=== PATIENT | female | born 1990 | race Caucasian/White ===

== ENCOUNTER 2020-04-28 19:28 | Emergency (ER) | payer MEDICAID, SELFPAY ==
[2020-04-28 19:35] VITALS: BP 110/72; PULSE 85; RESP 18; TEMP 35.9; O2SAT 100; BMI 21.6
[2020-04-28 20:36] LABS: Glucose Urine UA NEG (NEG); Leukocyte Esterase Urine 1+ (NEG); Nitrite Urine POS (NEG); Specific Gravity - Urine 1.025 (1.005-1.025); Urine Blood 3+ (NEG); Urine Ketones NEG (NEG); Urine Protein 1+ MG/DL (NEG-TRACE)
[2020-04-28 20:44] LABS: Appearance Urine CLOUDY; Color Urine YELLOW
[2020-04-28 20:52] LABS: UPreg QC Valid YES; Urine Pregnancy NEGATIVE (NEGATIVE)
[2020-04-28 21:05] LABS: Bacteria Urine 1+ /LPF; RBC Urine 30-49 /HPF (0); Squamous Epithelial Cell Urine TRACE /LPF
--- NOTE | 2020-04-28 21:09 | ED.FEMALEGU ---
HPI - Female Genitourinary General Chief complaint: Abdominal Pain Stated complaint: painful urination Time Seen by Provider: 04/28/20 21:03 Source: patient Mode of arrival: ambulatory Limitations: no limitations History of Present Illness HPI Narrative: This is a 30-year-old female who presents with 1 day of suprapubic discomfort that she rates as 3/ -10 not associated with any fevers, chills, nausea, vomiting, diarrhea. Patient does that pain gets worse with urination. Related Data Home Medications Medication Instructions Recorded Confirmed No Known Home Meds 04/28/20 04/28/20 Previous Rx's Medication Instructions Recorded ciprofloxacin HCl 500 mg PO Q12H 3 Days #6 tab 04/28/20 phenazopyridine [Pyridium] 100 mg PO TID #6 tab 04/28/20 Allergies Allergy/AdvReac Type Severity Reaction Status Date / Time No Known Allergies Allergy Verified 04/28/20 19:41 Review of Systems Review of Systems: Pertinent positives and negatives as stated in HPI 10 point review of systems is otherwise negative. [facility] Past Medical History Source: nursing notes reviewed Medical History No known health problems Social History Social History Advance Directives: No Advance Directives Information Provided: No Physical Exam Vital Signs: Vital Signs: Vital Signs Temp Pulse Resp BP Pulse Ox 04/28/20 19:35 96.7 F L 85 18 110/72 100 Body Mass Index 21.6 VITAL SIGNS: Reviewed. GENERAL: Well developed, well nourished, in no acute distress. HEAD: Normocephalic/atraumatic, EYES: PERRLA, EOMI intact without pain, no nystagmus/pallor/icterus noted EARS: Ext canals without abnormality, TMs non-bulging and non-erythematous NOSE: Nares patent bilateral OROPHARYNX: no oral lesions noted, posterior pharynx clear and non-erythematous without noted tonsillar enlargement/erythema/exudates NECK: Supple, no adenopathy LUNGS: Normal breath sounds. No adventitious sounds or accessory muscle use. SpO2<100> CARDIOVASCULAR: Regular rate and rhythm without noted murmurs, no JVD or lower extremity edema. ABDOMEN: Soft, non-tender, non-distended with bowel sounds. No rigidity. No guarding. No palpable masses or hernias noted MUSCULOSKELETAL: No tenderness, deformities, or effusions noted on gross inspection. EXTREMITIES: No cyanosis, clubbing or edema. SKIN: Inspection of the skin reveals no rashes, ulcerations, jaundice, pallor, or petechiae. NEUROLOGIC: Alert and oriented x 4. Strength and sensation to light touch were grossly intact x 4. Course Course Course Narrative: This is a 30-year-old female with history and clinical presentation most consistent with likely UTI, cystitis and doubt ovarian torsion, appendicitis. On review of all lab work there is a negative urine ruling out ectopic and evidence on urinalysis consistent with UTI/cystitis. Patient was informed of all results and will be discharged with antibiotics. [facility] - Female Genitourinary Lab Data Labs: Lab Results 04/28/20 04/28/20 Range/Units 20:30 20:30 Urine Color YELLOW Urine Appearance CLOUDY Urine pH 6.0 (5.0-8.0) Ur Specific [place] 1.025 (1.005-1.025) Urine Protein 1+ H (NEG-TRACE) MG/DL Urine Glucose (UA) NEG (NEG) MG/DL Urine Ketones NEG (NEG) MG/DL Urine Blood 3+ H (NEG) Urine Nitrite POS H (NEG) Ur Leukocyte Esterase 1+ H (NEG) Urine RBC 30-49 H (0) /HPF Urine WBC 15-29 H (0-4) /HPF Ur Squamous Epith Cells TRACE /LPF Urine Bacteria 1+ /LPF Urine Test NEGATIVE (NEGATIVE) Discharge Plan Discharge Clinical Impression: UTI (urinary tract infection) Qualifiers: Urinary tract infection type: acute cystitis Hematuria presence: with hematuria Qualified Code(s): N30.01 - Acute cystitis with hematuria Patient Disposition: Home, Self-Care Instructions: Urinary Tract Infection in Women (ED) Additional Instructions: 1. aumentar la hidrataci?n, especialmente el agua. El paciente y / o la leoncio reconocen que comprenden los resultados (seg?n corresponda), el diagn?stico, el plan de tratamiento, la necesidad de seguimiento y los s?ntomas que deber?an impulsar el regreso a la monica de emergencias. Prescriptions: New ciprofloxacin HCl 500 mg tablet 500 mg PO Q12H 3 Days Qty: 6 RF: 0 phenazopyridine [Pyridium] 100 mg tablet 100 mg PO TID Qty: 6 RF: 0 No Action No Known Home Meds RF: 0 Referrals: Physician,Unknown [Primary Care Provider] - 2 days Print Language: Vietnamese
== END 2020-04-28 22:10 | disposition home or self-care (01) ==
PROVIDERS: Emergency Provider Student in an Organized Health Care Education/Training Program
DX: N30.01 Acute cystitis with hematuria (principal)
CPT/HCPCS: 81001; 81025; 87086; 87088; 87186; 99283

== ENCOUNTER 2020-07-08 17:32 | Outpatient (REF) | payer MEDICAID, SELFPAY | END 2020-07-08 17:33 | disposition home or self-care (01) | LOC: HO.LAB 17:32 | PROVIDERS: Visit Provider Internal Medicine | DX: Z20.828 Contact with and (suspected) exposure to other viral communicable diseases (principal) | CPT/HCPCS: C9803; U0003 ==

== ENCOUNTER 2020-08-25 03:39 | Emergency (ER) | payer MEDICAID, SELFPAY ==
[2020-08-25 03:41] VITALS: BP 104/67; PULSE 87; RESP 18; TEMP 36.9; O2SAT 99; BMI 23.9
--- NOTE | 2020-08-25 04:27 | ED.NAVMDI ---
HPI - Nausea/Vomiting/Diarrhea General Chief complaint: Nausea/Vomiting/Diarrhea Stated complaint: Diarrhea Time Seen by Provider: 08/25/20 03:57 Source: patient Mode of arrival: ambulatory History of Present Illness HPI Narrative: This is a 30-year-old female without significant past medical history who presents with onset of nonbloody diarrhea at approximately 1:30 a.m. this morning, patient states she has had 3 episodes thus far and has not had any associated fevers, chills, nausea, vomiting, urinary pain/burning/frequency. Patient sources that she ate earlier at [facility] and then developed diarrhea without abdominal discomfort. Related Data Home Medications Medication Instructions Recorded Confirmed No Known Home Meds 04/28/20 04/28/20 Previous Rx's Medication Instructions Recorded ciprofloxacin HCl 500 mg PO Q12H 3 Days #6 tab 04/28/20 phenazopyridine [Pyridium] 100 mg PO TID #6 tab 04/28/20 Allergies Allergy/AdvReac Type Severity Reaction Status Date / Time No Known Allergies Allergy Verified 08/25/20 03:41 Review of Systems Review of Systems: Pertinent positives and negatives as stated in HPI 10 point review of systems otherwise negative. [facility] Past Medical History Source: nursing notes reviewed Medical History No known health problems Social History Social History Advance Directives: No Advance Directives Information Provided: No Physical Exam Vital Signs: Vital Signs: Last Vital Signs Temp 98.5 F 08/25/20 03:41 Pulse 87 08/25/20 03:41 Resp 18 08/25/20 03:41 BP 104/67 08/25/20 03:41 Pulse Ox 99 08/25/20 03:41 Body Mass Index 23.9 VITAL SIGNS: Reviewed. GENERAL: Well developed, well nourished, in no acute distress. NOSE: Nares patent bilateral OROPHARYNX: no oral lesions noted, posterior pharynx clear NECK: Supple, no adenopathy LUNGS: Normal breath sounds. SpO2<99> CARDIOVASCULAR: Regular rate and rhythm without noted murmurs ABDOMEN: Soft, non-tender, non-distended with bowel sounds. NEUROLOGIC: Alert and oriented x 4. Course Course Course Narrative: This is a 30-year-old female with history clinical presentation most consistent with food related diarrhea and no evidence of p.o. intolerance. Discussed with patient the option of providing some fluid replacement and will be provided with a p.o. challenge. On re-evaluation patient is feeling much better and tolerating oral intake. She was discharged in stable condition. Discharge Plan Discharge Clinical Impression: Diarrhea Qualifiers: Diarrhea type: unspecified type Qualified Code(s): R19.7 - Diarrhea, unspecified Patient Disposition: Home, Self-Care Instructions: Acute Diarrhea (ED), Nutrition Tips for Relief of Diarrhea (ED) Additional Instructions: Please do not hesitate to return to the emergency department if you experience any worsening of your symptoms. Prescriptions: No Action No Known Home Meds RF: 0 ciprofloxacin HCl 500 mg tablet 500 mg PO Q12H 3 Days Qty: 6 RF: 0 phenazopyridine [Pyridium] 100 mg tablet 100 mg PO TID Qty: 6 RF: 0 Referrals: [facility] [Primary Care Provider] - 2 days (Re-evaluation of her seen in the emergency department for suspected food related diarrhea.) Stand Alone Forms: Work/School Release
[2020-08-25] MEDS: 0.9 % Sodium Chloride 1,000 ML 999 ML IV (04:31)
== END 2020-08-25 06:22 | disposition home or self-care (01) ==
PROVIDERS: Emergency Provider Student in an Organized Health Care Education/Training Program
DX: R19.7 Diarrhea, unspecified (principal)
CPT/HCPCS: 96360; 99283; 99284

== ENCOUNTER 2022-06-12 20:52 | Emergency (ER) | payer MEDICAID, SELFPAY ==
[2022-06-12 21:12] VITALS: BP 119/76; PULSE 119; RESP 16; TEMP 37.9; O2SAT 98; BMI 22.1
[2022-06-12] MEDS: Acetaminophen 325 MG TABLET 975 MG PO (21:18)
--- NOTE | 2022-06-12 21:31 | ED_ITS ---
HPI - General Adult General Chief complaint: General Medical Stated complaint: Fever, throat pain Time Seen by Provider: 06/12/22 21:31 Source: patient Mode of arrival: ambulatory Limitations: no limitations History of Present Illness HPI narrative: 32-year-old female presents with fatigue, fevers and sore throat that started this morning. States is difficult to swallow but she is able to manage secretions. She did take Motrin with moderate effect. Onset (ago): day(s) (1) Location: mouth Radiation: non-radiation Severity: moderate Severity scale (1-10): 7 Quality: aching Pain Consistency: constant Relieving factors: none Exacerbating factors: eating Associated symptoms: denies other symptoms Treatments prior to arrival: NSAID Related Data Previous Rx's Medication Instructions Recorded ciprofloxacin HCl 500 mg tablet 500 mg PO Q12H 3 days #6 tabs 04/28/20 phenazopyridine 100 mg tablet 100 mg PO TID 6 doses #6 tabs 04/28/20 (Pyridium) amoxicillin 875 mg-potassium 1 tab PO Q12H 10 days #20 tabs 06/12/22 clavulanate 125 mg tablet Allergies Allergy/AdvReac Type Severity Reaction Status Date / Time No Known Allergies Allergy Verified 06/12/22 21:22 Review of Systems Review of Systems: Constitutional: positive Fever, positive Chills, positive fatigue, positive Malaise ENT/Mouth: positive sore throat, positive runny nose Eyes: No Discharge Cardiovascular: No Chest Pain, No SOB Respiratory: No Cough, No Sputum, No Wheezing, No Smoke Exposure, No Dyspnea Gastrointestinal: No Nausea, No Vomiting, No Diarrhea Genitourinary: no irregular bleeding, No Dysuria, No Urinary Frequency, No Hematuria, No Urinary Incontinence, No Urgency, No Flank Pain, Musculoskeletal: positive Myalgia Skin: No rash Neuro: No Headache Yes all other systems are reviewed and are negative [facility] Past Medical History Attestation statement: The following information was validated with the patient. Source: old records reviewed Medical History No known health problems Social History Social History Advance Directives: No Advance Directives Information Provided: No Physical Exam ED Vital Signs: Vital Signs - 24 hr 06/12/22 21:12 06/12/22 22:12 Temperature 100.3 F 100.6 F H Pulse Rate 119 H 98 Respiratory Rate 16 18 Blood Pressure 119/76 114/64 Pulse Oximetry 98 100 Oxygen Delivery Method Room Air Room Air BMI result Body Mass Index 22.1 Appearance: Alert. Oriented X3. Moderate distress. Eyes: Pupils equal, round and reactive to light. Sclera nonicteric ENT: Pharynx erythematous, with bilateral tonsillar exudate. Neck: Normal inspection. Neck supple. No tracheal stridor. Anterior posterior cervical lymphadenopathy. No mastoid tenderness noted. Tympanic membranes intact. CVS: Normal heart rate and rhythm. Pulses normal. Respiratory: No respiratory distress. Breath sounds normal. Abdomen: Soft and nontender. Skin: Skin warm and dry. Normal skin color. Normal skin turgor. Extremities: Gait well-balanced well coordinated Neuro: No motor deficit. No sensory deficit. Cranial nerves 2-12 intact. Course Course Course Narrative: 32-year-old female presents with 1 day of sore throat, myalgia, fevers. COVID influenza RSV are pending, strep A positive while in the emergency department waiting room. Physical exam is indicative of pharyngitis. Will treat with Augmentin. Supportive measures discussed for pain management. No indication of peritonsillar abscess, no epiglottitis noted. Patient verbalized understanding of and agrees to plan of care discharge home. Verbalized understanding sinus symptoms indicating need for emergent intervention. Medications Administered Discontinued Medications Generic Name Dose Route Start Last Admin Trade Name Freq PRN Reason Stop Dose Admin Acetaminophen 975 mg 06/12/22 21:16 06/12/22 21:18 Acetaminophen 325 Mg Tablet PO 06/12/22 21:17 975 mg ONCE ONE Administration Amoxicillin/Clavulanate Potassium 875 mg 06/12/22 22:05 06/12/22 22:10 Amoxicillin/Potassium Clav 875 Mg Tablet PO 06/12/22 22:06 875 mg ONCE ONE Administration Medical Decision Making Differential Diagnosis Differential Diagnosis: COVID, influenza, RSV, pharyngitis, strep, epiglottitis, peritonsillar absc Medical Records Medical records reviewed: Yes I reviewed the patient's medical records. Lab Data Lab results reviewed: Yes I reviewed the patient's lab results. Labs: Lab Results 06/12/22 06/12/22 Range/Units 21:20 21:20 Influenza Type A (PCR) NEGATIVE (Negative) Influenza Type B (PCR) NEGATIVE (Negative) RSV RNA Qual (PCR) NEGATIVE (Negative) SARS-CoV-2 RNA (RT-PCR) NEGATIVE (Negative) S. pyogenes GrpA YURI Positive A (Negative) Discharge Plan Discharge Clinical Impression: Acute streptococcal pharyngitis Patient Disposition: Home, Self-Care Instructions: Strep Throat (ED) Additional Instructions: You were evaluated for upper respiratory symptoms. You tested positive for strep pharyngitis. Please take Augmentin 875 mg every 12 hours for the next 10 days. Alternate Tylenol 650 mg every 6 hours as needed and Motrin 600 mg every 6 hours as needed for pain management. Her last dose of Tylenol was given at 21:00. Your next dose is due at 03:00. Consider taking Motrin 600 mg at midnight so you can have pain and fever management every 3 hours. Write down what time you take these medications to prevent accidental overdose. Your COVID influenza RSV tests are pending. We will call you with your results. If you have difficulty swallowing, cannot manage your saliva, or feel that her airway is closing please return to the emergency department immediately. This is an indication of worsening symptoms. Thank you for choosing this emergency department for evaluation. Please follow-up with primary care physician as needed. Return to the emergency department for any new, concerning, or worsening symptoms. Prescriptions: New amoxicillin-pot clavulanate 875-125 mg tablet 1 tab PO Q12H 10 Days Qty: 20 0RF No Action ciprofloxacin HCl 500 mg tablet 500 mg PO Q12H 3 Days Qty: 6 0RF phenazopyridine [Pyridium] 100 mg tablet 100 mg PO TID Qty: 6 0RF Stand Alone Forms: Work/School Release Interventions: ED Discharge Assessment Last Done: 06/12/22 22:23 Discharge Date/Time: 06/12/22 22:24
[2022-06-12 21:36] LABS: Strep A Nucleic Acid Positive (Negative)
[2022-06-12] MEDS: Amoxicillin/Potassium Clav 875 MG TABLET PO (22:10)
[2022-06-12 22:11] LABS: Influenza A PCR NEGATIVE (Negative); Influenza B PCR NEGATIVE (Negative); Resp Syncy Virus RNA Qual PCR NEGATIVE (Negative); SARS COV2 PCR INHOUSE NEGATIVE (Negative)
[2022-06-12 22:12] VITALS: BP 114/64; PULSE 98; RESP 18; TEMP 38.1; O2SAT 100
== END 2022-06-12 22:24 | disposition home or self-care (01) ==
PROVIDERS: Emergency Provider Emergency Medicine Emergency Medical Services
DX: J02.0 Streptococcal pharyngitis (principal); R50.9 Fever, unspecified; Z20.822 Contact with and (suspected) exposure to COVID-19
CPT/HCPCS: 0241U; 36415; 87651; 99283

== ENCOUNTER 2022-07-25 10:15 | Emergency (ER) | payer MEDICAID, SELFPAY ==
--- NOTE | ~2022-07-25 | CT_ITS ---
EXAMINATION: CT ABDOMEN AND PELVIS WITHOUT CONTRAST CLINICAL INFORMATION: Abdominal pain, hematuria COMPARISON: None TECHNIQUE: Multidetector volumetric imaging was performed from the superior aspect of the liver through the pubic symphysis. Sagittal and coronal reformatted images were obtained on the technologist's workstation. This CT examination was performed using dose optimization techniques as appropriate, variously including the following: *Automated exposure control *Adjustment of mA and/or kV according to patient size (this includes techniques or standardized protocols for targeted exams where dose is matched to indication/reason for exam; i.e. extremities or head) *Use of iterative reconstruction technique DLP: 522 mGy-cm FINDINGS: LUNG BASES: The visualized lung bases are unremarkable. LIVER, GALLBLADDER, AND BILIARY TREE: The liver is normal in size, shape, and attenuation. No focal hepatic lesion or biliary ductal dilatation is present. The gallbladder is unremarkable with no evidence of radiopaque gallstones, gallbladder wall thickening, or obvious pericholecystic inflammatory changes. PANCREAS: Unremarkable. SPLEEN: Unremarkable. ADRENAL GLANDS: Unremarkable. KIDNEYS AND URETERS: The kidneys are normal in size, shape, and attenuation. No hydronephrosis, hydroureter, or calculi seen. No perinephric stranding. BLADDER: Minimally distended. No obvious wall thickening or radiodense calculi within the bladder. GASTROINTESTINAL TRACT: Prominent stool in the rectum and distal sigmoid colon. Few diverticula in the sigmoid colon. No findings to suggest diverticulitis. Nonobstructive bowel gas pattern. No dilated small bowel loops. Normal appendix. No ascites. No free air.s ABDOMINAL WALL: No significant hernia is appreciated. LYMPH NODES: No adenopathy seen. VASCULAR: Normal caliber aorta. PELVIC VISCERA: Within normal limits. OSSEOUS STRUCTURES: Unremarkable. CT/CT abdomen pelvis wo IV con IMPRESSION: 1. No evidence of radiopaque renal or ureteral calculi. No hydronephrosis. No perinephric stranding. No suspicious lesions seen. 2. Prominent stool in the rectum and distal sigmoid colon. No acute colonic inflammatory changes. Fleischner guidelines were followed.
[2022-07-25 10:21] VITALS: BP 132/72; PULSE 88; RESP 18; TEMP 36.8; O2SAT 98; BMI 21.2
[2022-07-25 10:37] VITALS: BP 121/75; PULSE 87; RESP 15; TEMP 36.9; O2SAT 100
--- NOTE | 2022-07-25 10:59 | PC.NURSE ---
Pt reports urinary frequency since this AM, with scant vaginal bleeding. low back pain and low abd cramping however denies pain at this time, urine sent
[2022-07-25 11:00] LABS: Appearance Urine Clear; Color Urine Yellow; Glucose Urine UA Negative (Negative); Leukocyte Esterase Urine Negative (Negative); Nitrite Urine Negative (Negative); PH 5.5 (5.0-9.0); Specific Gravity - Urine 1.015 (1.005-1.025); UMIC TRIGGER UACC YES; Urine Blood Moderate (2+) (Negative); Urine Ketones Negative (Negative); Urine Protein Negative (Neg-Trace)
[2022-07-25 11:02] LABS: UPreg QC Valid YES; Urine Pregnancy NEGATIVE (NEGATIVE)
[2022-07-25 11:03] LABS: Bacteria Urine None Seen (None Seen); Hyaline Casts Urine 0-2 /LPF (0-2); RBC Urine >20 /HPF (0-2); Squamous Epithelial Cell Urine 0-2 /HPF (0-2); WBC Urine 0-5 /HPF (0-5)
--- NOTE | 2022-07-25 11:26 | ED_ITS ---
HPI - Female Genitourinary General Chief complaint: Urogenital-Female Stated complaint: abd pain Time Seen by Provider: 07/25/22 10:31 Source: patient and foreign language interpreter Mode of arrival: ambulatory Limitations: language barrier History of Present Illness HPI Narrative: This is a 32-year-old female who has previously healthy who presents with urinary frequency, urgency, suprapubic pressure and cramping as well as low back pain which began today. She denies any fevers, chills, diarrhea, vomiting, high back pain. Patient reports she is sexually active with 1 male partner who she has been sexually active with for 4 years. She is not concern for STD exposure. She does not want testing. Last menstrual period was the last week of June Related Data Previous Rx's Medication Instructions Recorded ciprofloxacin HCl 500 mg tablet 500 mg PO Q12H 3 days #6 tabs 04/28/20 phenazopyridine 100 mg tablet 100 mg PO TID 6 doses #6 tabs 04/28/20 (Pyridium) amoxicillin 875 mg-potassium 1 tab PO Q12H 10 days #20 tabs 06/12/22 clavulanate 125 mg tablet ferrous sulfate 325 mg (65 mg 325 mg PO DAILY #30 tabs 07/25/22 iron) tablet Allergies Allergy/AdvReac Type Severity Reaction Status Date / Time No Known Allergies Allergy Verified 07/25/22 10:20 Review of Systems Review of Systems: Yes all other systems are reviewed and are negative Constitutional: Constitutional: Reports no additional constitutional complaints, Denies body ache(s), Denies chills, Denies fever(s), Denies headache(s) and Denies weakness Eyes: Eyes: Reports no additional eye complaints and Denies change in vision ENT: Reports system reviewed and no additional complaints, except as documented, Denies dizziness, Denies headache(s), Denies nasal congestion, Denies nasal discharge and Denies neck pain Cardiovascular: Cardiovascular: Reports no additional cardiovascular complaints, Denies chest pain, Denies leg edema and Denies dyspnea Respiratory: Respiratory: Reports no additional respiratory complaints, Denies cough and Denies dyspnea Gastrointestinal: Gastrointestinal: Reports no additional gastrointestinal complaints, Denies abdominal pain, Denies diarrhea, Denies nausea and Denies vomiting Genitourinary: Genitourinary: Reports no additional female genitourinary complaints, Reports hematuria, Denies dysuria, Reports pelvic pain, Denies urinary incontinence, Denies urinary hesitancy, Reports urinary urgency, Denies vaginal discharge, Denies vaginal dryness, Denies vaginal odor and Denies vaginal pruritus Musculoskeletal: Musculoskeletal: Reports no additional musculoskeletal complaints, Reports back pain, Denies arthralgias, Denies joint swelling, Denies neck pain, Denies numbness and Denies tingling Integumentary/Breasts: Skin/Breast: Reports system reviewed and no additional complaints, except as docu and Denies rash Neurologic: Reports system reviewed and no additional complaints, except as documented, Denies Abnormal speech present, Denies dizziness, Denies headache(s), Denies numbness, Denies tingling and Denies weakness PMFSH Past Medical History Attestation statement: The following information was validated with the patient. Source: old records reviewed and nursing notes reviewed Medical History No known health problems Social History Social History Smoked in Last 30 Days: No Use of substances other than those prescribed or required for medical reasons: No Advance Directives: No Advance Directives Information Provided: Yes Patient : No Physical Exam Vital Signs: Vital Signs: Last Vital Signs Temp 98.4 F 07/25/22 10:37 Pulse 91 07/25/22 13:24 Resp 16 07/25/22 13:24 BP 124/79 07/25/22 13:24 Pulse Ox 96 07/25/22 13:24 O2 Del Method 07/25/22 13:24 BMI result Body Mass Index 21.2 Const: General: cooperative, healthy appearing, comfortable and no acute distress Orientation/consciousness: patient oriented x3 Limitations: no limitations HEENT: Head: Yes normal to inspection Ears: hearing grossly normal bilaterally General nose exam: Normal external nose present Face and sinus: Yes normal facial exam Mouth: Normal oral and palatal mucosa present Throat: Yes posterior oropharynx normal Eyes: General: appearance normal, both eyes and all related structures Pupils: Equal, round and reactive pupils present Neck: Neck: Yes normal visual inspection Chest: Chest palpation & inspection: normal inspection of the chest Resp: Effort & Inspection: normal respiratory effort Auscultation: clear to auscultation bilaterally Cardio: Rate: regular rate Rhythm: regular rhythm Peripheral pulses: Peripheral pulses 2+ throughout GI: Inspection: Yes normal to inspection Palpation (GI): Soft to palpation and Tenderness to palpation present (GI) (Mild suprapubic tenderness) Auscultation: normal bowel sounds : General: Yes no CVA tenderness External Female Exam: normal external appearance Speculum Exam - Vagina: normal appearance of the vagina and vaginal bleeding (Scant vaginal bleeding-mucousy) Speculum Exam - Cervix: normal appearance of the cervix and nontender Bimanual exam- vagina & uterus: normal bimanual exam and No Cervical tenderness present Bimanual Exam- Adnexa, other: normal adnexae and no tenderness OB/external & speculum: vaginal bleeding (Scant vaginal bleeding-mucousy) Back/Spine/Pelvis: Back: no CVA tenderness Thoracic/Lumbar Spine: thoracic and lumbar spine normal to inspection Skin: General skin exam: no rashes or lesions noted Neuro: General: patient oriented x3, no focal motor deficits and normal sensation to monofilament Cranial nerves: Yes Equal, round and reactive pupils present Cognition (Neuro): normal cognition Speech: No Abnormal speech present Gait exam (Neuro): Normal gait present Motor exam (neuro): 5/5 motor strength present throughout Extrem: General: Yes normal to inspection Course Course Course Narrative: UA shows moderate RBC. No signs of leuks or nitrates. Will obtain labs, CT to rule out colic Reevaluation(s) Reevaluation #1: 1400-CT shows no acute finding. The patient consented to a pelvic exam. See physical exam. There was some mucusy/bloody vaginal discharge with no cervical motion tenderness or adnexal tenderness. Patient tells me that she is due for her menses in 2 weeks. ? Irregular. Does report multiple stressors anxiety at home and tells me when this happens her periods are usually irregular. Patient's pain is resolved during her ER stay day. She did consent to testing for vaginal infections and STIs. Patient is not concern for STDs and would like to wait for the results to come back before she is treated. Labs show microcytic anemia. Likely chronic. Patient will be started on iron supplement. Recommend follow-up with primary care. Reviewed worrisome signs and symptoms of when to return to the emergency room. Comfortable discharge home. Medical Decision Making Medical Decision Making MDM Narrative: 32-year-old female here with urinary urgency, frequency, suprapubic pressure and low back pain starting today. No CVA tenderness on exam. Lungs are clear. Mild tenderness to the suprapubic area. Will send UA, urine preg. Offered STI testing the patient declined. Differential Diagnosis Differential Diagnoses: The differential diagnosis associated with the presentation includes UTI, renal colic, pyelonephritis Lab Data MDM Lab Attestation statement: I reviewed the patient's lab results. 07/25/22 11:36 07/25/22 11:36 Labs: Lab Results 07/25/22 07/25/22 07/25/22 Range/Units 10:54 10:54 11:36 WBC 6.1 (4.8-10.8) X10*3/uL RBC 4.67 (4.20-5.50) X10*6/uL Hgb 8.4 L (12.0-16.0) g/dl Hct 29.3 L (37.0-47.0) % MCV 62.7 L (80.0-98.0) fL MCH 18.0 L (27.0-33.0) pg MCHC 28.7 L (31.0-35.0) g/dl RDW 16.6 H (11.0-16.0) % Plt Count 344 (160-400) X10*3/uL MPV 9.5 (9.4-12.3) fL Immature Gran % (Auto) 0.2 (0.0-0.4) % Neut % (Auto) 62.4 (45-73) % Lymph % (Auto) 29.1 (20-40) % Nicholas % (Auto) 5.8 (2-11) % Eos % (Auto) 2.0 (0-4) % Baso % (Auto) 0.5 (0-2) % Lymph # (Auto) 1.8 (1.2-4.9) X10*3/uL Nicholas # (Auto) 0.4 (0.1-1.2) X10*3/uL Eos # (Auto) 0.1 (0.0-0.4) X10*3/uL Baso # (Auto) 0.0 (0.0-0.2) X10*3/uL Abs Immat Gran (auto) 0.01 (0.00-0.03) X10*3/uL Absolute Neuts (auto) 3.8 (2.0-8.3) x10*3/uL Absolute Nucleated RBC 0.000 (0.0-0.012) X10*3/uL Nucleated RBC % (auto) 0.0 (0.0-0.2) /100WBC Sodium (135-145) mmol/L Potassium (3.3-5.1) mmol/L Chloride (96-108) mmol/L Carbon Dioxide (22-29) mmol/L Anion Gap (12-20) BUN (9-16) mg/dL Creatinine (0.5-1.4) mg/dL Estim Creat Clear Calc Estimated GFR Random Glucose (60-115) mg/dL Calcium (8.4-10.2) mg/dL Total Bilirubin (0.0-1.0) mg/dL Direct Bilirubin (0.0-0.5) mg/dL AST (5-31) U/L ALT (0-31) U/L Alkaline Phosphatase (39-117) U/L Total Protein (6.5-8.0) g/dL Albumin (3.5-5.0) g/dL Urine Color Yellow Urine Appearance Clear Urine pH 5.5 (5.0-9.0) Ur Specific [place] 1.015 (1.005-1.025) Urine Protein Negative (Neg-Trace) mg/dL Urine Glucose (UA) Negative (Negative) mg/dL Urine Ketones Negative (Negative) mg/dL Urine Blood Moderate (2+) H (Negative) Urine Nitrite Negative (Negative) Ur Leukocyte Esterase Negative (Negative) Urine RBC >20 H (0-2) /HPF Urine WBC 0-5 (0-5) /HPF Ur Squamous Epith Cells 0-2 (0-2) /HPF Urine Bacteria None Seen (None Seen) Hyaline Casts 0-2 (0-2) /LPF Urine Test NEGATIVE (NEGATIVE) 07/25/22 Range/Units 11:36 WBC (4.8-10.8) X10*3/uL RBC (4.20-5.50) X10*6/uL Hgb (12.0-16.0) g/dl Hct (37.0-47.0) % MCV (80.0-98.0) fL MCH (27.0-33.0) pg MCHC (31.0-35.0) g/dl RDW (11.0-16.0) % Plt Count (160-400) X10*3/uL MPV (9.4-12.3) fL Immature Gran % (Auto) (0.0-0.4) % Neut % (Auto) (45-73) % Lymph % (Auto) (20-40) % Nicholas % (Auto) (2-11) % Eos % (Auto) (0-4) % Baso % (Auto) (0-2) % Lymph # (Auto) (1.2-4.9) X10*3/uL Nicholas # (Auto) (0.1-1.2) X10*3/uL Eos # (Auto) (0.0-0.4) X10*3/uL Baso # (Auto) (0.0-0.2) X10*3/uL Abs Immat Gran (auto) (0.00-0.03) X10*3/uL Absolute Neuts (auto) (2.0-8.3) x10*3/uL Absolute Nucleated RBC (0.0-0.012) X10*3/uL Nucleated RBC % (auto) (0.0-0.2) /100WBC Sodium 140 (135-145) mmol/L Potassium 4.0 (3.3-5.1) mmol/L Chloride 107 (96-108) mmol/L Carbon Dioxide 23 (22-29) mmol/L Anion Gap 14 (12-20) BUN 11 (9-16) mg/dL Creatinine 0.72 (0.5-1.4) mg/dL Estim Creat Clear Calc 110.3 Estimated GFR > 60 Random Glucose 100 (60-115) mg/dL Calcium 9.5 (8.4-10.2) mg/dL Total Bilirubin 0.4 (0.0-1.0) mg/dL Direct Bilirubin < 0.2 (0.0-0.5) mg/dL AST 17 (5-31) U/L ALT 12 (0-31) U/L Alkaline Phosphatase 62 (39-117) U/L Total Protein 7.9 (6.5-8.0) g/dL Albumin 4.2 (3.5-5.0) g/dL Urine Color Urine Appearance Urine pH (5.0-9.0) Ur Specific [place] (1.005-1.025) Urine Protein (Neg-Trace) mg/dL Urine Glucose (UA) (Negative) mg/dL Urine Ketones (Negative) mg/dL Urine Blood (Negative) Urine Nitrite (Negative) Ur Leukocyte Esterase (Negative) Urine RBC (0-2) /HPF Urine WBC (0-5) /HPF Ur Squamous Epith Cells (0-2) /HPF Urine Bacteria (None Seen) Hyaline Casts (0-2) /LPF Urine Test (NEGATIVE) Independent Interpretation I performed an independent interpretation of an: CT Scan (Independently reviewed the CT scan which is no acute finding) Radiology Impression Discussion of test interpretation with radiology: I have reviewed the radiologist's reading. Radiologist Impression: FINDINGS: LUNG BASES: The visualized lung bases are unremarkable.? LIVER, GALLBLADDER, AND BILIARY TREE: The liver is normal in size, shape, and attenuation. No focal hepatic lesion or biliary ductal dilatation is present. The gallbladder is unremarkable with no evidence of radiopaque gallstones, gallbladder wall thickening, or obvious pericholecystic inflammatory changes.? PANCREAS: Unremarkable.? SPLEEN: Unremarkable.? ADRENAL GLANDS: Unremarkable.? KIDNEYS AND URETERS: The kidneys are normal in size, shape, and attenuation. No hydronephrosis, hydroureter, or calculi seen. No perinephric stranding. ? BLADDER: Minimally distended. No obvious wall thickening or radiodense calculi within the bladder.? GASTROINTESTINAL TRACT: Prominent stool in the rectum and distal sigmoid colon. Few diverticula in the sigmoid colon. No findings to suggest diverticulitis. Nonobstructive bowel gas pattern. No dilated small bowel loops. Normal appendix. No ascites. No free air.s? ABDOMINAL WALL: No significant hernia is appreciated.? LYMPH NODES: No adenopathy seen. VASCULAR: Normal caliber aorta. PELVIC VISCERA: Within normal limits.? OSSEOUS STRUCTURES: Unremarkable.? CT/CT abdomen pelvis wo IV con IMPRESSION: 1. No evidence of radiopaque renal or ureteral calculi. No hydronephrosis. No perinephric stranding. No suspicious lesions seen. ? 2. Prominent stool in the rectum and distal sigmoid colon. No acute colonic inflammatory changes. ? Fleischner guidelines were followed. Discharge Plan Discharge Clinical Impression: Anemia, Pelvic pain Patient Disposition: Home, Self-Care Instructions: Anemia (ED), Pelvic Pain (ED) Additional Instructions: Tiene anemia leve. [place] no es raro en las mujeres en edad f?rtil. Es probable que sea por deficiencia de joe. Te estoy comenzando con un suplemento de joe. [place] an?lisis de laboratorio, muestra de orina y tomograf?a computarizada son todos normales. Enviamos algunos hisopos para infecciones vaginales comunes en mujeres. Lo llamaremos si estos son positivos y necesita tratamiento adici onal. Es posible que tenga [place] menstruaci?n antes de lo normal. Aplica calor en tu abdomen. [place] Motrin o Tylenol si puede seg?n sea necesario para el dolor. Prescriptions: New ferrous sulfate 325 mg (65 mg iron) tablet 325 mg PO DAILY Qty: 30 0RF No Action ciprofloxacin HCl 500 mg tablet 500 mg PO Q12H 3 Days Qty: 6 0RF phenazopyridine [Pyridium] 100 mg tablet 100 mg PO TID Qty: 6 0RF amoxicillin-pot clavulanate 875-125 mg tablet 1 tab PO Q12H 10 Days Qty: 20 0RF Referrals: [facility] [Primary Care Provider] - Interventions: ED Discharge Assessment Last Done: 07/25/22 14:15 Discharge Date/Time: 07/25/22 14:16 Print Language: Kazakh
[2022-07-25 11:39] LABS: MANUAL DIFF FLAG NO
[2022-07-25 11:40] LABS: Basophils Percent Auto 0.5 % (0-2); Eosinophils Absolute Auto 0.1 X10*3/uL (0.0-0.4); Hematocrit 29.3 % (37.0-47.0); Hemoglobin 8.4 g/dl (12.0-16.0); Imm Gran Abs Auto 0.01 X10*3/uL (0.00-0.03); Imm Gran Pct Auto 0.2 % (0.0-0.4); Lymphocytes Absolute Auto 1.8 X10*3/uL (1.2-4.9); Lymphocytes Percent Auto 29.1 % (20-40); Mean Corpuscular HGB Conc 28.7 g/dl (31.0-35.0); Mean Platelet Volume 9.5 fL (9.4-12.3); Monocytes Absolute Auto 0.4 X10*3/uL (0.1-1.2); Monocytes Percent Auto 5.8 % (2-11); Neutrophils Absolute Auto 3.8 x10*3/uL (2.0-8.3); Neutrophils Percent Auto 62.4 % (45-73); Platelet Count 344 X10*3/uL (160-400); Red Blood Count 4.67 X10*6/uL (4.20-5.50); Red Cell Distribution Width 16.6 % (11.0-16.0); White Blood Count 6.1 X10*3/uL (4.8-10.8)
[2022-07-25 11:43] LABS: Mean Corpuscular Volume 62.7 fL (80.0-98.0)
--- NOTE | 2022-07-25 11:48 | PC.NURSE ---
Off unit to CT scan
[2022-07-25 11:54] LABS: Alanine Aminotransferase 12 U/L (0-31); Albumin Level 4.2 g/dL (3.5-5.0); Alkaline Phosphatase 62 U/L (39-117); Anion Gap 14 (12-20); Aspartate Amino Transferase 17 U/L (5-31); Bilirubin Direct < 0.2 mg/dL (0.0-0.5); Bilirubin Total 0.4 mg/dL (0.0-1.0); Blood Urea Nitrogen 11 mg/dL (9-16); Calcium 9.5 mg/dL (8.4-10.2); Carbon Dioxide 23 mmol/L (22-29); Chloride 107 mmol/L (96-108); Creatinine Clr Calc Pharmacy 110.3; Estimated Glomerular Filt Rate > 60; Glucose Random 100 mg/dL (60-115); Sodium 140 mmol/L (135-145); Total Protein 7.9 g/dL (6.5-8.0)
[2022-07-25 13:24] VITALS: BP 124/79; PULSE 91; RESP 16; O2SAT 96
[2022-07-25 15:22] LABS: CT PCR NOT DETECTED (Not Detect.); NG PCR NOT DETECTED (Not Detect.)
[2022-07-26 11:17] LABS: BV Int Neg Control Negative (Negative); BV Int Pos Control Positive (Positive)
== END 2022-07-25 14:16 | disposition home or self-care (01) ==
PROVIDERS: Nurse Practitioner Family; Emergency Provider Emergency Medicine
DX: D64.9 Anemia, unspecified (principal); R35.0 Frequency of micturition; R10.2 Pelvic and perineal pain; M54.50 Low back pain, unspecified; Z79.899 Other long term (current) drug therapy
CPT/HCPCS: 0353U; 36415; 74176; 80048; 80076; 81001; 81003; 81025; 85025; 87480; 87510; 87660; 99284

== ENCOUNTER 2023-01-13 05:02 | Emergency (ER) | payer MEDICAID, SELFPAY ==
[2023-01-13 05:07] VITALS: BP 101/67; PULSE 98; RESP 20; TEMP 36.2; O2SAT 97; BMI 21.4
[2023-01-13 05:18] VITALS: BP 104/65; PULSE 94; RESP 17; TEMP 37.1; O2SAT 98
--- NOTE | 2023-01-13 06:33 | ED.GENADULT ---
HPI - General Adult General Chief complaint: Abdominal Pain Stated complaint: diarrhea Time Seen by Provider: 01/13/23 06:32 Source: patient Mode of arrival: ambulatory Limitations: no limitations History of Present Illness HPI narrative: Patient is a 32 year old assigned female at with a history of recent urinary tract infection presenting to the emergency department today with nausea, vomiting, and diarrhea. Patient states that yesterday she saw her PCP and was diagnosed with a UTI and started on Macrobid however, she has not been able to take it due to her vomiting. Patient denies any dizziness, lightheadedness, abdominal pain, fever, chills, blurry vision, double vision, loss of vision, chest pain, difficulty breathing, shortness of breath, back pain, night sweats, pain with urination, increased urinary frequency, increased urinary urgency, blood in her urine or stool, syncope or a near syncopal episode, recent trauma or falls, bowel incontinence, bladder incontinence, bowel retention, bladder retention, or any other complaints at this time. Onset (ago): day(s) (2) Severity: mild Severity scale (1-10): 2 Relieving factors: none Exacerbating factors: none Associated symptoms: nausea/vomiting Treatments prior to arrival: none Related Data Previous Rx's Medication Instructions Recorded ciprofloxacin HCl 500 mg tablet 500 mg PO Q12H 3 days #6 tabs 04/28/20 phenazopyridine 100 mg tablet 100 mg PO TID 6 doses #6 tabs 04/28/20 (Pyridium) amoxicillin 875 mg-potassium 1 tab PO Q12H 10 days #20 tabs 06/12/22 clavulanate 125 mg tablet ferrous sulfate 325 mg (65 mg 325 mg PO DAILY #30 tabs 07/25/22 iron) tablet metronidazole 500 mg tablet 500 mg PO BID 7 days #14 tabs 07/30/22 cefdinir 300 mg capsule 300 mg PO BID 7 days #14 caps 01/13/23 ondansetron 4 mg disintegrating 4 mg PO Q8H 3 days #9 tabs 01/13/23 tablet Allergies Allergy/AdvReac Type Severity Reaction Status Date / Time No Known Allergies Allergy Verified 07/25/22 10:20 Review of Systems Constitutional: Constitutional: Reports no additional constitutional complaints, Denies chills, Denies fever(s) and Denies night sweats Eyes: Eyes: Reports no additional eye complaints, Denies blurry vision, Denies change in vision, Denies diplopia, Denies eye discharge, Denies loss of vision and Denies eye pain ENT: Denies dizziness Cardiovascular: Cardiovascular: Reports no additional cardiovascular complaints, Denies chest pain, Denies lightheadedness, Denies Loss of Consciousness and Denies dyspnea Respiratory: Respiratory: Reports no additional respiratory complaints and Denies dyspnea Gastrointestinal: Gastrointestinal: Reports no additional gastrointestinal complaints, Denies abdominal pain, Denies melena, Denies hematochezia, Denies change in bowel habits, Denies change in stool character, Reports diarrhea, Reports nausea and Reports vomiting Genitourinary: Genitourinary: Denies hematuria, Denies urinary frequency, Denies dysuria, Denies urinary incontinence, Denies urinary hesitancy and Denies urinary urgency Musculoskeletal: Musculoskeletal: Reports no additional musculoskeletal complaints, Denies numbness and Denies tingling Neurologic: Denies dizziness, Denies loss of vision, Denies numbness and Denies tingling Psychiatric: Psychiatric: Reports no additional psychiatric complaints Endocrine: Endocrine: Reports no additional endocrine complaints Hematologic/Lymphatic: Hematologic/Lymphatic: Reports no additional hematologic/lymphatic complaints Allergic/Immunologic: Allergic/Immunologic: Reports no additional allergic/immunologic complaints PMFSH Past Medical History Attestation statement: The following information was validated with the patient. Source: old records reviewed and nursing notes reviewed Medical History No known health problems Social History Social History Alcohol intake: never Smoked in Last 30 Days: No Use of substances other than those prescribed or required for medical reasons: No Any prior treatment program specific to substance use: No Advance Directives: No Advance Directives Information Provided: No Patient : No Physical Exam ED Vital Signs: Vital Signs - 24 hr 01/13/23 05:07 01/13/23 05:18 01/13/23 07:02 Temperature 97.2 F 98.8 F Pulse Rate 98 94 75 Respiratory Rate 20 17 18 Blood Pressure 101/67 104/65 103/65 Pulse Oximetry 97 98 98 Oxygen Delivery Method Room Air Room Air Room Air BMI result Body Mass Index 21.4 Const General: cooperative, no acute distress, alert and awake Nutritional Appearance: well nourished Orientation/consciousness: patient oriented x3 Limitations: no limitations HENMT Head: Yes normal to inspection and Yes atraumatic Ears: hearing grossly normal bilaterally and external ears normal General nose exam: Normal external nose present, no nasal discharge noted and no epistaxis Face and sinus: Yes normal facial exam, No abrasion and No laceration Mouth: Normal oral and palatal mucosa present, no drooling and no muffled voice Eyes General: appearance normal, both eyes and all related structures Periorbital: periorbital findings normal Eyelids: Yes eyelids normal Conjunctivae: conjunctivae normal Pupils: Equal, round and reactive pupils present EOM: EOMs intact bilaterally Neck Neck: Yes normal visual inspection, Yes full ROM and Yes no lymphadenopathy Chest Chest palpation & inspection: normal inspection of the chest Resp Effort & Inspection: normal respiratory effort and able to speak in complete sentences Auscultation: clear to auscultation bilaterally Cardio Rate: regular rate Rhythm: regular rhythm GI Inspection: Yes normal to inspection Palpation (GI): Soft to palpation, not firm, nontender, no guarding and not rigid Neuro General: patient oriented x3 and moves all extremities Cranial nerves: Yes Equal, round and reactive pupils present Cognition (Neuro): normal cognition Motor exam (neuro): 5/5 motor strength present throughout Sensory Exam: Normal double simultaneous stimulation for sensation Coordination: [id number]-av-[id number] test normal Extrem General: Yes normal to inspection, Yes full ROM and Yes capillary refill normal Psych Appearance: grossly normal Mental Status: mental status grossly normal Affect: normal affect Attitude: cooperative Thought process: Normal thought process present Thought content: Normal thought content present Insight: Good insight present (Psych) Medications Administered Discontinued Medications Generic Name Dose Route Start Last Admin Trade Name Donte PRN Reason Stop Dose Admin Acetaminophen 650 mg 01/13/23 08:17 01/13/23 08:23 Acetaminophen 325 Mg Tablet PO 01/13/23 08:18 650 mg ONCE ONE Administration Sodium Chloride 1,000 mls @ 999 mls/hr 01/13/23 06:45 01/13/23 08:57 Ns IV 01/13/23 07:45 Infused .Q1H1M FRANKY Infusion Ondansetron HCl 4 mg 01/13/23 06:40 01/13/23 07:13 Ondansetron Hcl 4 Mg/2 Ml Vial IVPUSH 01/13/23 06:41 4 mg ONCE ONE Administration Potassium Chloride 40 meq 01/13/23 08:49 01/13/23 08:58 Potassium Chloride Packet 20 Meq Packet PO 01/13/23 08:50 40 meq ONCE ONE Administration Medical Decision Making Medical Decision Making [facility] Narrative: Patient is a 32 year old assigned female at with a history of recent UTI presenting to the emergency department today with nausea, vomiting, and diarrhea. Patient's physical exam was unremarkable. Patient's blood work showed a slightly decreased potassium of 3.2 but the rest of the patient's labs were grossly normal. I explained my physical exam findings as well as all test results to the patient. I answered all questions asked by the patient. Patient received IV fluids and anti-emetic medications which she stated helped her symptoms significantly. I stressed the importance of the patient taking her medication as prescribed. I stressed the importance of the patient following up with her primary care provider. I stressed the importance of the patient returning to the emergency department immediately if her symptoms were to worsen or if she were to develop any dizziness, shortness of breath, difficulty breathing, chest pain, blurry vision, loss of vision, nausea, vomiting, abdominal pain, fever, chills, back pain, or any other complaints. Patient verbalized agreement and understanding with this treatment plan and discharge. Differential Diagnosis Differential Diagnoses: The differential diagnosis associated with the presentation includes Pyelonephritis UTI Nausea Vomiting Diarrhea Gastroenteritis Admission/Observation Consideration of admission/observation: Escalation of care including admission/observation considered Patient would have been admitted to the hospital had her work up had any findings where hospital admission was appropriate and her clinical presentation warranted hospital admission. Lab Data [facility] Lab Attestation statement: I reviewed the patient's lab results. My interpretation of these lab results are in the MDM portion of this note. 01/13/23 08:10 01/13/23 08:10 Labs: Lab Results 01/13/23 01/13/23 01/13/23 Range/Units 08:10 08:10 08:10 WBC 6.1 (4.8-10.8) X10*3/uL RBC 4.39 (4.20-5.50) X10*6/uL Hgb 11.2 L D (12.0-16.0) g/dl Hct 34.0 L (37.0-47.0) % MCV 77.4 L (80.0-98.0) fL MCH 25.5 L (27.0-33.0) pg MCHC 32.9 (31.0-35.0) g/dl RDW 20.5 H (11.0-16.0) % Plt Count 195 D (160-400) X10*3/uL MPV 9.6 (9.4-12.3) fL Immature Gran % (Auto) 0.3 (0.0-0.4) % Neut % (Auto) 85.3 H (45-73) % Lymph % (Auto) 7.1 L (20-40) % [place] % (Auto) 6.9 (2-11) % Eos % (Auto) 0.2 (0-4) % Baso % (Auto) 0.2 (0-2) % Lymph # (Auto) 0.4 L (1.2-4.9) X10*3/uL [place] # (Auto) 0.4 (0.1-1.2) X10*3/uL Eos # (Auto) 0.0 (0.0-0.4) X10*3/uL Baso # (Auto) 0.0 (0.0-0.2) X10*3/uL Abs Immat Gran (auto) 0.02 (0.00-0.03) X10*3/uL Absolute Neuts (auto) 5.2 (2.0-8.3) x10*3/uL Absolute Nucleated RBC 0.000 (0.0-0.012) X10*3/uL Nucleated RBC % (auto) 0.0 (0.0-0.2) /100WBC Sodium 136 (135-145) mmol/L Potassium 3.2 L (3.3-5.1) mmol/L Chloride 104 (96-108) mmol/L Carbon Dioxide 25 (22-29) mmol/L Anion Gap 10 L (12-20) BUN 7 L (9-16) mg/dL Creatinine 0.71 (0.5-1.4) mg/dL Estim Creat Clear Calc 119.1 Estimated GFR > 60 Random Glucose 109 (60-115) mg/dL Calcium 8.3 L D (8.4-10.2) mg/dL Total Bilirubin 0.4 (0.0-1.0) mg/dL AST 26 (5-31) U/L ALT 21 (0-31) U/L Alkaline Phosphatase 55 (39-117) U/L Total Protein 6.7 (6.5-8.0) g/dL Albumin 3.6 (3.5-5.0) g/dL Beta HCG, Quant < 2 mIU/mL COVID-19 ([facility]) (Negative) COVID-19 Clin Com 01/13/23 Range/Units 08:10 WBC (4.8-10.8) X10*3/uL RBC (4.20-5.50) X10*6/uL Hgb (12.0-16.0) g/dl Hct (37.0-47.0) % MCV (80.0-98.0) fL MCH (27.0-33.0) pg MCHC (31.0-35.0) g/dl RDW (11.0-16.0) % Plt Count (160-400) X10*3/uL MPV (9.4-12.3) fL Immature Gran % (Auto) (0.0-0.4) % Neut % (Auto) (45-73) % Lymph % (Auto) (20-40) % [place] % (Auto) (2-11) % Eos % (Auto) (0-4) % Baso % (Auto) (0-2) % Lymph # (Auto) (1.2-4.9) X10*3/uL [place] # (Auto) (0.1-1.2) X10*3/uL Eos # (Auto) (0.0-0.4) X10*3/uL Baso # (Auto) (0.0-0.2) X10*3/uL Abs Immat Gran (auto) (0.00-0.03) X10*3/uL Absolute Neuts (auto) (2.0-8.3) x10*3/uL Absolute Nucleated RBC (0.0-0.012) X10*3/uL Nucleated RBC % (auto) (0.0-0.2) /100WBC Sodium (135-145) mmol/L Potassium (3.3-5.1) mmol/L Chloride (96-108) mmol/L Carbon Dioxide (22-29) mmol/L Anion Gap (12-20) BUN (9-16) mg/dL Creatinine (0.5-1.4) mg/dL Estim Creat Clear Calc Estimated GFR Random Glucose (60-115) mg/dL Calcium (8.4-10.2) mg/dL Total Bilirubin (0.0-1.0) mg/dL AST (5-31) U/L ALT (0-31) U/L Alkaline Phosphatase (39-117) U/L Total Protein (6.5-8.0) g/dL Albumin (3.5-5.0) g/dL Beta HCG, Quant mIU/mL COVID-19 ([facility]) Negative (Negative) COVID-19 Clin Com See Note Discharge Plan Discharge Clinical Impression: Urinary tract infection, Nausea, Hypokalemia Patient Disposition: Home, Self-Care Instructions: Urinary Tract Infection in Women (DC), Hypokalemia (ED), Acute Nausea and Vomiting (ED) Additional Instructions: Follow up with your primary care provider. Return to the emergency department immediately if your symptoms worsen or if you develop any dizziness, shortness of breath, difficulty breathing, chest pain, blurry vision, loss of vision, nausea, vomiting, abdominal pain, fever, chills, back pain, or any other complaints. Marialuisa un seguimiento con durham proveedor de atenci?n primaria. Regrese al departamento de emergencias de inmediato si abimael s?ntomas empeoran o si presenta mareos, falta de aire, dificultad para respirar, dolor de pecho, visi?n borrosa, p?rdida de la visi?n, n?useas, v?mitos, dolor abdominal, fiebre, escalofr?os, dolor de espalda o cualquier otras quejas. Prescriptions: New ondansetron 4 mg tablet,disintegrating 4 mg PO Q8H 3 Days Qty: 9 0RF cefdinir 300 mg capsule 300 mg PO BID 7 Days Qty: 14 0RF No Action ciprofloxacin HCl 500 mg tablet 500 mg PO Q12H 3 Days Qty: 6 0RF phenazopyridine [Pyridium] 100 mg tablet 100 mg PO TID Qty: 6 0RF amoxicillin-pot clavulanate 875-125 mg tablet 1 tab PO Q12H 10 Days Qty: 20 0RF ferrous sulfate 325 mg (65 mg iron) tablet 325 mg PO DAILY Qty: 30 0RF metronidazole 500 mg tablet 500 mg PO BID 7 Days Qty: 14 0RF Referrals: Ansley Foster MD [Primary Care Provider] - Stand Alone Forms: Work/School Release Print Language: Bengali
[2023-01-13 07:02] VITALS: BP 103/65; PULSE 75; RESP 18; O2SAT 98
--- NOTE | 2023-01-13 07:15 | PC.NURSE ---
Alert and oriented, IV started and fluids running per order. Patient reports 3/10 abdominal pain. Zofran given per order
[2023-01-13 08:44] LABS: Alanine Aminotransferase 21 U/L (0-31); Albumin Level 3.6 g/dL (3.5-5.0); Alkaline Phosphatase 55 U/L (39-117); Anion Gap 10 (12-20); Aspartate Amino Transferase 26 U/L (5-31); Bilirubin Total 0.4 mg/dL (0.0-1.0); Blood Urea Nitrogen 7 mg/dL (9-16); Calcium 8.3 mg/dL (8.4-10.2); Carbon Dioxide 25 mmol/L (22-29); Chloride 104 mmol/L (96-108); Creatinine Clr Calc Pharmacy 119.1; Estimated Glomerular Filt Rate > 60; Glucose Random 109 mg/dL (60-115); Potassium 3.2 mmol/L (3.3-5.1); Sodium 136 mmol/L (135-145); Total Protein 6.7 g/dL (6.5-8.0)
--- NOTE | 2023-01-13 08:47 | PC.NURSE ---
Patient reports 2/10 headache pain. Medicated with prn tylenol
--- NOTE | 2023-01-13 09:28 | PC.NURSE ---
Pt cleared for DC by ED provider; Pt verbalized understanding of all DC instructions.
== END 2023-01-13 09:29 | disposition home or self-care (01) ==
PROVIDERS: Physician Assistant Medical; Emergency Provider Emergency Medicine Emergency Medical Services; PCP Student in an Organized Health Care Education/Training Program
DX: N39.0 Urinary tract infection, site not specified (principal); E87.6 Hypokalemia; R11.2 Nausea with vomiting, unspecified; Z20.822 Contact with and (suspected) exposure to COVID-19; Z79.899 Other long term (current) drug therapy
CPT/HCPCS: 36415; 80053; 84702; 85025; 87635; 96361; 96374; 99284; 99285; J2405

== ENCOUNTER 2023-03-16 09:29 | Outpatient (REF) | payer MEDICAID, SELFPAY ==
[2023-03-16 11:45] LABS: MANUAL DIFF FLAG NO
[2023-03-16 11:55] LABS: Basophils Percent Auto 0.6 % (0-2); Eosinophils Absolute Auto 0.2 X10*3/uL (0.0-0.4); Eosinophils Percent Auto 2.2 % (0-4); Hematocrit 39.9 % (37.0-47.0); Hemoglobin 13.1 g/dl (12.0-16.0); Imm Gran Abs Auto 0.03 X10*3/uL (0.00-0.03); Imm Gran Pct Auto 0.4 % (0.0-0.4); Lymphocytes Absolute Auto 2.1 X10*3/uL (1.2-4.9); Lymphocytes Percent Auto 29.7 % (20-40); Mean Corpuscular HGB Conc 32.8 g/dl (31.0-35.0); Mean Corpuscular Hemoglobin 27.1 pg (27.0-33.0); Mean Corpuscular Volume 82.4 fL (80.0-98.0); Mean Platelet Volume 11.3 fL (9.4-12.3); Monocytes Absolute Auto 0.4 X10*3/uL (0.1-1.2); Monocytes Percent Auto 6.2 % (2-11); Neutrophils Absolute Auto 4.2 x10*3/uL (2.0-8.3); Neutrophils Percent Auto 60.9 % (45-73); Platelet Count 244 X10*3/uL (160-400); Red Blood Count 4.84 X10*6/uL (4.20-5.50); Red Cell Distribution Width 14.9 % (11.0-16.0); White Blood Count 6.9 X10*3/uL (4.8-10.8)
[2023-03-16 12:53] LABS: Ferritin 26 ng/mL (10-122); Iron 115 mcg/dL (30-160); Percent Iron Saturation 38 % (15-50); Total Iron Binding Capacity 305 mcg/dL (228-428); Unsaturated Iron Binding 190 ug/dL
== END 2023-03-16 09:30 | disposition home or self-care (01) ==
LOC: HO.HHCL 09:29
PROVIDERS: Visit Provider Student in an Organized Health Care Education/Training Program
DX: D64.9 Anemia, unspecified (principal)
CPT/HCPCS: 36415; 82728; 83540; 85025

== ENCOUNTER 2023-05-28 15:36 | Emergency (ER) | payer MEDICAID, SELFPAY ==
[2023-05-28 15:50] VITALS: BP 132/87; PULSE 84; RESP 18; TEMP 36.3; O2SAT 98; BMI 28.1
--- NOTE | 2023-05-28 15:51 | ED.GENADULT ---
HPI - General Adult General Chief complaint: Urogenital-Female Stated complaint: abdominal pain Time Seen by Provider: 05/28/23 17:57 Source: patient and RN notes reviewed Mode of arrival: ambulatory Limitations: language barrier History of Present Illness HPI narrative: This is a 33-year-old Georgian-speaking female presenting to the emergency department with complaints of dysuria since this morning. Patient reports that she has had some dysuria and suprapubic pain only with urination. She denies any fevers, chills, chest pain, shortness breath, nausea, vomiting, diarrhea or constipation. She has a history of urinary tract infections in her symptoms feels the exact same. Irais sexually active with her , no concerns for sexually transmitted infections. No vaginal discharge or bleeding. No other complaints or concerns at this time. MD complaint: Dysuria Onset (ago): day(s) Radiation: non-radiation Quality: burning Pain Consistency: intermittent Relieving factors: none Exacerbating factors: none Associated symptoms: denies other symptoms Treatments prior to arrival: none Related Data Previous Rx's Medication Instructions Recorded ciprofloxacin HCl 500 mg tablet 500 mg PO Q12H 3 days #6 tabs 04/28/20 phenazopyridine 100 mg tablet 100 mg PO TID 6 doses #6 tabs 04/28/20 (Pyridium) amoxicillin 875 mg-potassium 1 tab PO Q12H 10 days #20 tabs 06/12/22 clavulanate 125 mg tablet ferrous sulfate 325 mg (65 mg 325 mg PO DAILY #30 tabs 07/25/22 iron) tablet metronidazole 500 mg tablet 500 mg PO BID 7 days #14 tabs 07/30/22 cefdinir 300 mg capsule 300 mg PO BID 7 days #14 caps 01/13/23 ondansetron 4 mg disintegrating 4 mg PO Q8H 3 days #9 tabs 01/13/23 tablet cefuroxime axetil 250 mg tablet 250 mg PO BID 7 days #13 tabs 05/28/23 phenazopyridine 100 mg tablet 100 mg PO TID PRN pain 6 doses #6 05/28/23 (Pyridium) tabs Allergies Allergy/AdvReac Type Severity Reaction Status Date / Time No Known Allergies Allergy Verified 05/28/23 15:50 Review of Systems Review of Systems: Yes all other systems are reviewed and are negative Constitutional: Constitutional: Reports as per HPI [facility] Past Medical History Attestation statement: The following information was validated with the patient. Medical History No known health problems Social History Social History Alcohol intake: never Advance Directives: No Advance Directives Information Provided: No Physical Exam ED Vital Signs: Vital Signs - 24 hr 05/28/23 15:50 Temperature 97.3 F Pulse Rate 84 Respiratory Rate 18 Blood Pressure 132/87 Pulse Oximetry 98 Oxygen Delivery Method Room Air BMI result Body Mass Index 28.1 Const General: cooperative, comfortable and no acute distress Orientation/consciousness: patient oriented x3 Limitations: no limitations HENMT Head: Yes normal to inspection, Yes normocephalic and Yes atraumatic Ears: hearing grossly normal bilaterally General nose exam: Normal external nose present Face and sinus: Yes normal facial exam Mouth: Normal oral and palatal mucosa present, oropharynx normal and moist mucous membranes Throat: Yes posterior oropharynx normal Eyes General: appearance normal, both eyes and all related structures Eyelids: Yes eyelids normal Conjunctivae: conjunctivae normal Sclerae: sclerae normal Pupils: Equal, round and reactive pupils present EOM: EOMs intact bilaterally Neck Neck: Yes normal visual inspection, Yes full ROM and Yes no lymphadenopathy Lymphatic: no lymphadenopathy noted Chest Chest palpation & inspection: normal inspection of the chest Resp Effort & Inspection: normal respiratory effort and able to speak in complete sentences Auscultation: clear to auscultation bilaterally, no crackles, no rales, no rhonchi and no wheezes Cardio Rate: regular rate Rhythm: regular rhythm Heart sounds: S1 normal heart sound present and S2 normal heart sound present GI Other: Abdomen is soft, with mild suprapubic tenderness on examination. no TTP along McBurney's point, negative rovsing's sign. No rebound or guarding. Inspection: Yes normal to inspection Skin General skin exam: no rashes or lesions noted Trauma: no lacerations or abrasions Wounds: no wounds Neuro General: patient oriented x3 and moves all extremities Cranial nerves: Yes Equal, round and reactive pupils present Extrem General: Yes normal to inspection Right upper extremity: normal to inspection Left upper extremity: normal to inspection Right lower extremity: normal to inspection Left lower extremity: normal to inspection Course Course Course Narrative: This is an RME: Additional HPI, ROS, PE not included below will be deferred to primary provider. This is a [id number] presenting to the emergency department with complaints of hematuria, dysuria, urinary frequency since this morning. History of urinary tract infections and this feels similar to previous infections. She is not sexually active. Denies chance of . Last menstrual period was last week. Plan: UA, U preg Medications Administered Discontinued Medications Generic Name Dose Route Start Last Admin Trade Name Donte PRN Reason Stop Dose Admin Cefuroxime Axetil 250 mg 05/28/23 18:42 05/28/23 18:48 Cefuroxime Axetil 250 Mg Tablet PO 05/28/23 18:43 250 mg ONCE ONE Administration Phenazopyridine HCl 100 mg 05/28/23 18:42 05/28/23 18:48 Phenazopyridine Hcl 100 Mg Tablet PO 05/28/23 18:43 100 mg ONCE ONE Administration Medical Decision Making Medical Decision Making [facility] Narrative: This is a 33-year-old female presenting to the emergency department for evaluation of dysuria since this morning. On arrival, all vital signs within normal limits. Urine was obtained revealing high specific gravity, trace leuk esterases. Patient has a history of urinary tract infections and states that her symptoms feel the same. Abdomen is soft with mild tenderness to palpation along the suprapubic region. Patient has no tenderness in the right lower quadrant. Differential diagnoses include acute cystitis, ovarian torsion-unlikely, , pyelonephritis-unlikely. Given history of UTIs with similar presentation, will treat with cefuroxime and peridium. Advised to drink plenty of fluids, given return precautions. Patient understands and agrees with plan. Patient stable for discharge. Differential Diagnosis Differential Diagnoses: The differential diagnosis associated with the presentation includes See above Lab Data [facility] Lab Attestation statement: I reviewed the patient's lab results. See above Labs: Lab Results 05/28/23 Range/Units 17:20 Urine Color Yellow Urine Appearance Clear Urine pH 7.0 (5.0-9.0) Ur Specific [place] >= 1.030 H (1.005-1.025) Urine Protein Trace (Neg-Trace) mg/dL Urine Glucose (UA) Negative (Negative) mg/dL Urine Ketones Trace (Negative) mg/dL Urine Blood Negative (Negative) Urine Nitrite Negative (Negative) Ur Leukocyte Esterase Trace H (Negative) Urine RBC 0-2 (0-2) /HPF Urine WBC 0-5 (0-5) /HPF Ur Squamous Epith Cells 3-5 (0-2) /HPF Urine Bacteria None Seen (None Seen) Hyaline Casts 0-2 (0-2) /LPF Urine Test NEGATIVE (NEGATIVE) Discharge Plan Discharge Clinical Impression: Urinary tract infection Patient Disposition: Home, Self-Care Instructions: Urinary Tract Infection in Women (ED) Additional Instructions: You came to the emergency department today due to a painful urination. Your test was negative today. Your urine appears to be slightly infected. I am treating you for urinary tract infection, please complete entire course of antibiotics even if you are feeling better. Pyridium is a medication to help with your pain, please be advised that this medication can cause a urine to be bright orange. Please drink plenty of fluids and get plenty of rest. If any new or worsening symptoms occur including but not limited to fevers, chills, worsening abdominal pain, vomiting, please return for re-evaluation. Prescriptions: New phenazopyridine [Pyridium] 100 mg tablet 100 mg PO TID PRN (Reason: pain) Qty: 6 0RF cefuroxime axetil 250 mg tablet 250 mg PO BID 7 Days Qty: 13 0RF No Action ciprofloxacin HCl 500 mg tablet 500 mg PO Q12H 3 Days Qty: 6 0RF phenazopyridine [Pyridium] 100 mg tablet 100 mg PO TID Qty: 6 0RF amoxicillin-pot clavulanate 875-125 mg tablet 1 tab PO Q12H 10 Days Qty: 20 0RF ferrous sulfate 325 mg (65 mg iron) tablet 325 mg PO DAILY Qty: 30 0RF metronidazole 500 mg tablet 500 mg PO BID 7 Days Qty: 14 0RF ondansetron 4 mg tablet,disintegrating 4 mg PO Q8H 3 Days Qty: 9 0RF cefdinir 300 mg capsule 300 mg PO BID 7 Days Qty: 14 0RF Interventions: ED Discharge Assessment Last Done: 05/28/23 18:50 Discharge Date/Time: 05/28/23 18:50
[2023-05-28 17:30] LABS: Appearance Urine Clear; Color Urine Yellow; Glucose Urine UA Negative (Negative); Leukocyte Esterase Urine Trace (Negative); Nitrite Urine Negative (Negative); Specific Gravity - Urine >= 1.030 (1.005-1.025); UMIC TRIGGER UACC YES; Urine Blood Negative (Negative); Urine Ketones Trace mg/dL (Negative); Urine Protein Trace mg/dL (Neg-Trace)
[2023-05-28 17:35] LABS: Bacteria Urine None Seen (None Seen); Hyaline Casts Urine 0-2 /LPF (0-2); RBC Urine 0-2 /HPF (0-2); WBC Urine 0-5 /HPF (0-5)
[2023-05-28 18:06] LABS: UPreg QC Valid YES; Urine Pregnancy NEGATIVE (NEGATIVE)
[2023-05-28] MEDS: Phenazopyridine HCL 100 MG TABLET PO (18:48)
[2023-05-28] MEDS: cefuroxime axetiL 250 MG TABLET PO (18:48)
== END 2023-05-28 18:50 | disposition home or self-care (01) ==
PROVIDERS: Physician Assistant Medical; Emergency Provider Student in an Organized Health Care Education/Training Program; PCP Student in an Organized Health Care Education/Training Program
DX: N39.0 Urinary tract infection, site not specified (principal)
CPT/HCPCS: 81001; 81025; 99283

== ENCOUNTER 2023-07-08 08:11 | Outpatient (REF) | payer MEDICAID, SELFPAY ==
[2023-07-08 11:44] LABS: MANUAL DIFF FLAG NO
[2023-07-08 11:50] LABS: Basophils Percent Auto 0.7 % (0-2); Eosinophils Absolute Auto 0.2 X10*3/uL (0.0-0.4); Eosinophils Percent Auto 3.6 % (0-4); Hematocrit 39.9 % (37.0-47.0); Imm Gran Abs Auto 0.02 X10*3/uL (0.00-0.03); Imm Gran Pct Auto 0.3 % (0.0-0.4); Lymphocytes Absolute Auto 1.5 X10*3/uL (1.2-4.9); Lymphocytes Percent Auto 25.2 % (20-40); Mean Corpuscular HGB Conc 32.6 g/dl (31.0-35.0); Mean Corpuscular Volume 85.8 fL (80.0-98.0); Mean Platelet Volume 11.1 fL (9.4-12.3); Monocytes Absolute Auto 0.4 X10*3/uL (0.1-1.2); Monocytes Percent Auto 6.8 % (2-11); Neutrophils Absolute Auto 3.9 x10*3/uL (2.0-8.3); Neutrophils Percent Auto 63.4 % (45-73); Platelet Count 257 X10*3/uL (160-400); Red Blood Count 4.65 X10*6/uL (4.20-5.50); Red Cell Distribution Width 12.1 % (11.0-16.0); White Blood Count 6.1 X10*3/uL (4.8-10.8)
[2023-07-08 12:13] LABS: Iron 113 mcg/dL (30-160); Percent Iron Saturation 35 % (15-50); Total Iron Binding Capacity 326 mcg/dL (228-428); Unsaturated Iron Binding 213 ug/dL
[2023-07-08 12:34] LABS: Ferritin 15 ng/mL (10-122)
== END 2023-07-08 08:12 | disposition home or self-care (01) ==
LOC: HO.HHCL 08:11
PROVIDERS: Visit Provider Student in an Organized Health Care Education/Training Program
DX: D64.9 Anemia, unspecified (principal)
CPT/HCPCS: 36415; 82728; 83540; 85025

== ENCOUNTER 2023-11-01 07:44 | Outpatient (REF) | payer MEDICAID, SELFPAY ==
--- NOTE | ~2023-11-01 | US_ITS ---
EXAMINATION: US PELVIS CLINICAL INFORMATION: Irregular bleeding LMP: Last week COMPARISON: CT scan abdomen and pelvis 07/25/2022 TECHNIQUE: Ultrasound of the pelvis is performed using both transabdominal and transvaginal transducers along with Doppler. Transvaginal imaging is performed due to inadequate visualization transabdominally. FINDINGS: Uterus: The uterus is anteverted and measures 8.6 x 4.5 x 5.1 cm. No focal fibroid. The endometrial thickness 2.0 cm. The endometrial stripe is heterogeneous. Upper limits of normal is 1.6 cm.. Adnexa: Both ovaries are visualized. There is normal color flow to the adnexa. There is no ovarian torsion. There is no pelvic ascites or fluid collection. Right ovary measures 2.9 x 1.5 x 2.1 cm. Volume 4.8 mL. Left ovary measures 1.8 x 1.3 x 1.6 cm. Volume 2.0 mL US/US pelvic and transvaginal IMPRESSION: 1. Thickened heterogeneous endometrial stripe. 2. Normal ovaries.
== END 2023-11-01 07:45 | disposition home or self-care (01) ==
LOC: HO.US 07:44
PROVIDERS: PCP Student in an Organized Health Care Education/Training Program; Visit Provider Student in an Organized Health Care Education/Training Program
DX: N92.3 Ovulation bleeding (principal)
CPT/HCPCS: 76830; 76856

== ENCOUNTER 2023-12-20 18:59 | Outpatient (REF) | payer MEDICAID, SELFPAY ==
[2023-12-21 03:41] LABS: CT PCR NOT DETECTED (Not Detect.); NG PCR NOT DETECTED (Not Detect.)
[2023-12-21 10:56] LABS: Bacterial Vaginosis PCR NEGATIVE (Negative); Candida Group PCR NOT DETECTED (Not Detect); Candida glab krusei PCR NOT DETECTED (Not Detect); Trichomonas vaginalis PCR NOT DETECTED (Not Detect)
== END 2023-12-20 19:00 | disposition home or self-care (01) ==
LOC: HO.HHCLNP 18:59
PROVIDERS: Visit Provider Emergency Medicine
DX: R30.0 Dysuria (principal)
CPT/HCPCS: 0352U; 0353U; 87086

== ENCOUNTER 2024-01-04 10:36 | Outpatient (REF) | payer MEDICAID, SELFPAY ==
--- NOTE | ~2024-01-04 | US_ITS ---
EXAMINATION: US PELVIS CLINICAL INFORMATION: Follow-up endometrial stripe thickening; the last menstrual period was on 01/04/2024. COMPARISON: Pelvic ultrasound dated 11/01/2023. TECHNIQUE: Ultrasound of the pelvis is performed using both transabdominal and transvaginal transducers along with Doppler. Transvaginal imaging is performed due to inadequate visualization transabdominally. FINDINGS: Uterus: The uterus is anteverted and anteflexed. The uterus measures 8.4 x 4.4 x 4.7 cm. The double wall endometrial thickness is 6 mm. The uterus is smooth in contour and has normal myometrial echogenicity. No visible fibroid. Adnexa: Both ovaries are visualized. There is normal color flow to the adnexa. There is no ovarian torsion. There is no pelvic ascites or fluid collection. Right ovary measures 2.4 x 1.7 x 1.3 cm, volume 2.7 mL. Left ovary measures 1.5 x 1.2 x 0.9 cm, volume 0.9 mL. US/US pelvic complete IMPRESSION: Unremarkable examination. The endometrial stripe thickness is now normal for a premenopausal patient.
== END 2024-01-04 10:37 | disposition home or self-care (01) ==
LOC: HO.US 10:36
PROVIDERS: PCP Student in an Organized Health Care Education/Training Program; Visit Provider Student in an Organized Health Care Education/Training Program
DX: R93.89 Abnormal findings on diagnostic imaging of other specified body structures (principal)
CPT/HCPCS: 76856

== ENCOUNTER 2024-02-06 08:17 | Outpatient (REF) | payer MEDICAID, SELFPAY ==
[2024-02-06 11:40] LABS: Hematocrit 36.5 % (37.0-47.0); Hemoglobin 11.6 g/dl (12.0-16.0); Mean Corpuscular HGB Conc 31.8 g/dl (31.0-35.0); Mean Corpuscular Hemoglobin 25.1 pg (27.0-33.0); Mean Platelet Volume 10.8 fL (9.4-12.3); Platelet Count 310 X10*3/uL (160-400); Red Blood Count 4.62 X10*6/uL (4.20-5.50); Red Cell Distribution Width 15.5 % (11.0-16.0); White Blood Count 5.5 X10*3/uL (4.8-10.8)
[2024-02-06 11:55] LABS: Estimated Average Glucose 108 mg/dL; Hemoglobin A1C 107.2515 umol/L; Hemoglobin A1c % 5.4 % (<6.0)
[2024-02-06 12:02] LABS: Appearance Urine Clear; Color Urine Yellow; Glucose Urine UA Negative (Negative); Leukocyte Esterase Urine Negative (Negative); Nitrite Urine Negative (Negative); Urine Blood Negative (Negative); Urine Ketones Negative (Negative); Urine Protein Negative (Neg-Trace)
[2024-02-06 12:05] LABS: Bacteria Urine None Seen (None Seen); Hyaline Casts Urine 0-2 /LPF (0-2); RBC Urine 0-2 /HPF (0-2); WBC Urine 0-5 /HPF (0-5)
[2024-02-06 12:15] LABS: Alanine Aminotransferase 17 U/L (0-31); Alkaline Phosphatase 54 U/L (39-117); Anion Gap 10 (12-20); Aspartate Amino Transferase 20 U/L (5-31); Bilirubin Total 0.3 mg/dL (0.0-1.0); Blood Urea Nitrogen 10 mg/dL (9-16); Calcium 9.4 mg/dL (8.4-10.2); Carbon Dioxide 27 mmol/L (22-29); Chloride 105 mmol/L (96-108); Cholesterol 135 mg/dL (<200); Estimated Glomerular Filt Rate > 60; Glucose Random 93 mg/dL (60-115); HDL Cholesterol 39 mg/dL (>40); Iron 35 mcg/dL (30-160); LDL Cholesterol Calculated 51 mg/dL (<100); Percent Iron Saturation 10 % (15-50); Potassium 3.8 mmol/L (3.3-5.1); Sodium 138 mmol/L (135-145); Total Iron Binding Capacity 342 mcg/dL (228-428); Total Protein 7.5 g/dL (6.5-8.0); Triglycerides 225 mg/dL (<150); Unsaturated Iron Binding 307 ug/dL
[2024-02-06 12:19] LABS: Syphilis Screen Nonreactive (Nonreactive)
[2024-02-06 12:23] LABS: HBS Num1 12.65 mIU/mL (0-7.99); HBc Num1 0.27 S/CO (0.00-0.79); HBsAGNum1 0.34 S/CO (0.00-0.99); HIV AB/AG Nonreactive (Nonreactive); HIV Num 1 0.06 S/CO (0.00-0.99); Hepatitis B Core Antibody Nonreactive (Nonreactive); Hepatitis B Surface Antigen Negative (Negative); ~HepC Num1 0.27 S/CO (0.00-0.79); ~Hepatitis B Surface Antibody REACTIVE (Nonreactive); ~Hepatitis C Antibody Nonreactive (Nonreactive)
[2024-02-06 12:33] LABS: Ferritin 7 ng/mL (10-122)
== END 2024-02-06 08:18 | disposition home or self-care (01) ==
LOC: HO.HHCL 08:17
PROVIDERS: Visit Provider Student in an Organized Health Care Education/Training Program
DX: Z00.00 Encounter for general adult medical examination without abnormal findings (principal); R30.0 Dysuria; R82.79 Other abnormal findings on microbiological examination of urine
CPT/HCPCS: 36415; 80053; 80061; 81001; 82728; 83036; 83540; 84443; 85027; 86704; 86706; 86780; 86803; 87086; 87147; 87340; 87389

== ENCOUNTER 2024-09-24 13:54 | Outpatient (REF) | payer MEDICAID, SELFPAY ==
[2024-09-24 16:39] LABS: Hematocrit 33.4 % (37.0-47.0); Hemoglobin 10.6 g/dl (12.0-16.0); Mean Corpuscular HGB Conc 31.7 g/dl (31.0-35.0); Mean Corpuscular Hemoglobin 22.8 pg (27.0-33.0); Mean Corpuscular Volume 71.8 fL (80.0-98.0); Mean Platelet Volume 11.3 fL (9.4-12.3); Platelet Count 331 X10*3/uL (160-400); Red Blood Count 4.65 X10*6/uL (4.20-5.50); Red Cell Distribution Width 14.6 % (11.0-16.0); White Blood Count 6.6 X10*3/uL (4.8-10.8)
[2024-09-24 17:07] LABS: Iron 33 mcg/dL (30-160); Percent Iron Saturation 9 % (15-50); Total Iron Binding Capacity 383 mcg/dL (228-428); Unsaturated Iron Binding 350 ug/dL
[2024-09-24 17:14] LABS: Ferritin 4 ng/mL (10-122)
== END 2024-09-24 13:55 | disposition home or self-care (01) ==
LOC: HO.HHCL 13:54
PROVIDERS: Visit Provider Student in an Organized Health Care Education/Training Program
DX: D50.9 Iron deficiency anemia, unspecified (principal)
CPT/HCPCS: 36415; 82728; 83540; 85027

== ENCOUNTER 2025-03-04 13:22 | Emergency (ER) | payer MEDICAID, SELFPAY ==
--- OUTSIDE RECORDS SUMMARY | 2024-06-06 10:30 | XMS_ITS ---
Author Organization [facility] Address [address] [place] [phone] Care Team Providers Care Exhibition Organiser Name Role Phone MARITZA MARQUEZ Unavailable [phone] REASON FOR VISIT Routine Testing Social History Sex Assigned At : Social History Observation Description Sex Assigned At Female Encounters Encounter Location Date Provider Diagnosis [facility] [address] [place], [place] [phone] MARITZA MARQUEZ Plan Of Treatment No Information Progress Notes * Melanie SIERRA MDOB: [birth year] (34 yo F)Acc No.[id number]:06/06/2024 Progress Notes Patient: Sania GILLES Melanie Castellanos Provider: Rom MARQUEZ :1990 A ge:34 Y S ex:Female Date:06/06/2024 Address:[address] [place], [place] [phone] Subjective: * Chief Complaints: * 1 . Routine Testing. * Medical History: Objective: * Vitals: Assessment: Plan: * Treatment: * Billing Information: * Visit Code: * Procedure Codes: * Electronic signature of CLAUDE MARQUEZ CNM on 03/04/2025 at 03:55 PM EDT Sign off status: Pending * Provider: Rom MARQUEZ Date: 08/06/2023 Generated for Sabrinai hector/Bob/eTransmitting on: 0 03/04/2025 03:55 PM EDT
--- OUTSIDE RECORDS SUMMARY | 2024-06-15 06:00 | XMS_ITS ---
Author Organization [facility] Address [address] [place] [phone] Care Team Providers Care Inspector And Tester Name Role Phone Isha Gil Unavailable [phone] REASON FOR VISIT Infection Screening Social History Sex Assigned At : Social History Observation Description Sex Assigned At Female Encounters Encounter Location Date Provider Diagnosis [facility] [place], [place] [phone] 06/15/2024 Isha Gil Plan Of Treatment No Information Progress Notes * Melanie SIERRA MDOB: [birth year] (34 yo F)Acc No.[id number]:06/15/2024 Progress Notes Patient: Santiago GLOVERdeangelodavonte Castellanos Provider: SANIA Mazariegos :1990 A ge:34 Y S ex:Female Date:06/15/2024 Address:[address] [place], [place] [phone] Subjective: * Chief Complaints: * 1 . Infection Screening. * Medical History: Objective: * Vitals: Assessment: Plan: * Treatment: * Billing Information: * Visit Code: * Procedure Codes: * Electronic signature of JAQUI Morales on 03/04/2025 at 03:56 PM EDT Sign off status: Pending * Provider: SANIA Mazariegos Date: 1 08/16/2023 Generated for Anatoliy young/Bob/eTransmitting on: 0 03/04/2025 03:56 PM EDT
--- OUTSIDE RECORDS SUMMARY | 2025-02-27 10:20 | XMS_ITS | Encounter Summary ---
Demographics Address [address] [facility] [address] [place] [address] Mobile Phone Home Phone Work Phone Email Address Email Address Preferred Language es Marital Status Single Faith Affiliation Unknown Race Other Race Ethnic Group Unknown Author Organization [employer] Address [address] [facility] [address] [place] [address] Care Team Providers Care Dress Marker Name Role Phone Ansley Foster MD Primary Care Pro vider Reason for Visit * Reason Comments Panic Attacks Encounter Details Date Type Department Care Team ([facility] st Contact Info) Description 02/27/2025 10:20 AM EDT Office Visit [facility] [address] [place] [address] Ansley Bell MD [address] [place] [address] Panic disorder Social History Tobacco Use Types Packs/Day Years Used Date Smoking Tobacco: Never Passive Smoke Exposure: Never Smokeless Tobacco: Never Tobacco Cessation:Counseling Given: Not Answered Alcohol Use Standard Drinks/Week Comments Never 0 (1 standard drink = 0.6 oz pur e alcohol) Depression Answer Date Recorded Patient Health Questionnaire-9 Score 5 01/04/2025 Patient Health Questionnaire-9 Score 5 01/04/2025 Last PHQ-9: Questionnaire Data Not on file 0 01/04/2025 Housing Stability Answer Date Recorded What is your housing situation today? I have annmarie sing 08/01/[address] you li ve. Do you have problems with any of the following? None of the above 08/01/2024 Food Insecurity Answer Date Recorded Within the past 12 months, y ou worried that your food would run out before you got money to buy more: Never True 08/01/2024 Within the past 12 months,th e food you bought just didn't last and you didn't have enough money to get more: Never True Transportation Answer Date Recorded In the past 12 months, has l ack of transportation kept you from medical appts, meetings, work or from getting things needed for daily living? No 08/01/2024 Utilities Answer Date Recorded In the past 12 months, has t he electric, gas, oil or water company threatened to shut off services in your home? No 08/01/2024 Depression Answer Date Recorded Patient Health Questionnaire-2 Score 1 01/04/2025 Internet Access Answer Date Recorded Internet Access Q1 Yes 08/01/2024 Internet Access Q2 Not on file 08/01/2024 Comments No Sex and Gender Information Value Date Recorded Sex Assigned at Female 05/10/2022 10:30 AM EDT Legal Sex Female 10:30 AM EDT Gender Identity Female 05/10/2022 10:30 AM EDT Sexual Orientation Straight 05/10/2022 10 :30 AM EDT documented as of this encounter Last Filed Vital Signs Vital Sign Reading Time Taken Comments Blood Pressure 132/84 02/27/2025 9:50 AM EDT Pulse 69 02/27/2025 9:50 AM EDT Temperature 36.7 C (98.1 F) 02/27/2025 9:50 AM EDT Respiratory Rate 16 02/27/2025 9:50 AM EDT Oxygen Saturation 100% 02/27/2025 9:50 AM EDT Inhaled Oxygen Concentration - - Weight 68.9 kg (152 lb) 02/27/2025 9:50 AM EDT Height - - Body Mass Index 26.09 01/04/2025 8:58 AM EDT documented in this encounter Progress Notes * Ansley Fuentes MD - 02/27/2025 10:20 AM EDT SUBJECTIVE: Melanie Calloway is a 34 y.o. year old female who presents for acute visit . Acute Concerns: Patient has known history of depression with anxiety, she was treated for this about 2 years ago when she felt better and she stopped taking her medications, reports recently she has been having again panic attacks especially when she is driving, she cannot identify any triggers, reports it is challenging for her to go to work because of this at work he feels okay and at home she also feels good Social History Social History Narrative Not on file Problem List[1] Anemia Depression with anxiety Health care maintenance Latex allergy Dermatitis Overweight (BMI 25.0-29.9) Family History[2] Review of Systems Constitutional: Negative. HENT: Negative. Respiratory: Negative. Cardiovascular: Negative. Psychiatric/Behavioral: The patient is nervous/anxious. OBJECTIVE: Vitals: 02/27/25 0950 BP: 132/84 BP Location: Right arm Patient Position: Sitting BP Cuff Size: Adult Pulse: 69 Resp: 16 Temp: 98.1 ??F (36.7 ??C) TempSrc: Temporal SpO2: 100% Weight: 152 lb (68.9 kg) Physical Exam Constitutional: Appearance: Normal appearance. Cardiovascular: Rate and Rhythm: Normal rate and regular rhythm. Pulmonary: Effort: Pulmonary effort is normal. Breath sounds: Normal breath sounds. Abdominal: General: Abdomen is flat. Palpations: Abdomen is soft. Musculoskeletal: Right lower leg: No edema. Left lower leg: No edema. Neurological: Mental Status: She is alert. Follow Up: No follow-ups on file. Medications Ordered Prior to Encounter[3] Problem List Items Addressed This Visit Panic disorder [facility] was called today I will start her again on escitalopram 10 mg daily I also prescribed hydroxyzine 25 mg every 8 hours as needed Patient to follow-up with PCP and therapist Relevant Medications escitalopram (Lexapro) 10 MG tablet hydrOXYzine HCl (Atarax) 25 MG tablet [1] Patient Active Problem List Diagnosis Anemia Depression with anxiety Health care maintenance Latex allergy Dermatitis Overweight (BMI 25.0-29.9) Panic disorder [2] Family History Problem Relation Name Age of Onset Cervical cancer Mother Other (cousin: Bipolar dx) Other [3] Current Outpatient Medications on File Prior to Visit Medication Sig Dispense Refill Acetaminophen 500 MG capsule Take one to two tablets as needed for fever or pain every 6 hours 30 capsule 0 betamethasone, augmented, (Diprolene) 0.05 % ointment Apply topically 2 times daily. 15 g 0 ferrous gluconate (Fergon) 324 (38 Fe) MG tablet Take 1 tab every other day 45 tablet 1 No current facility-administered medications on file prior to visit. documented in this encounter Miscellaneous Notes * Assessment & Plan Note - Ansley Fuentes MD - 02/27/2025 11:52 AM EDT Associated Problem(s): Panic disorder [facility] was called today I will start her again on escitalopram 10 mg daily I also prescribed hydroxyzine 25 mg every 8 hours as needed Patient to follow-up with PCP and therapist documented in this encounter Plan of Treatment Upcoming Encounters Date Type Department Care Team (Late st Contact Info) Description 04/12/2025 3:00 PM EDT Nutrition [facility] [address] [place], [place] [phone] Angela L[address] [place], [place] [phone] documented as of this encounter Visit Diagnoses Diagnosis Panic disorder Panic disorder without agoraphobia documented in this encounter Additional Health Concerns Assessment Noted Time PHQ-9 Depression Total Score: 5 01/05/20 25 9:56 AM EDT documented as of this encounter Care Teams Dress Marker Relationship Specialty Start Date End Date Ansley Foster MD [address] [place], [place] [phone] PCP - General Internal Medicine 11/10/22 documented as of this encounter
--- NOTE | ~2025-03-04 | XR_ITS ---
EXAMINATION: XR CHEST CLINICAL INFORMATION: palpitations COMPARISON: None available. TECHNIQUE: 2 views of the chest were obtained. FINDINGS: No significant abnormality is noted involving the heart, lungs, mediastinum, bony thorax or soft tissues. XR/XR chest 2V IMPRESSION: No acute disease Electronically signed by: Colby Palumbo MD 03/04/2025 02:59 PM EDT RP
[2025-03-04 13:29] VITALS: BP 123/70; PULSE 104; RESP 19; TEMP 36.8; O2SAT 99; BMI 25.3
--- NOTE | 2025-03-04 13:33 | ED_ITS ---
HPI - General Adult General Chief complaint: Anxiety Stated complaint: Panic Attack Time Seen by Provider: 03/04/25 14:27 Source: patient, RN notes reviewed, old records reviewed and machine load clerk Mode of arrival: ambulatory Limitations: language barrier History of Present Illness ED Provider: Lexi PALENCIA narrative: Patient is a 34-year-old Kosovan-speaking female presenting to the emergency department with complaint of intermittent episodes of acute anxiety over the past 1-2 weeks. Patient states that she has only been having these episodes while driving. Associated chest pain, palpitations. Went to [facility] on Tuesday and was prescribed hydroxyzine which has helped. Has a call with a therapist at 4pm today. Denies any suicidal or homicidal ideation, auditory or visual hallucinations. Denies any recent MVCs or other obvious stressors. Denies symptoms currently. MD complaint: anxiety Onset (ago): week(s) Related Data Previous Rx's ?Medication ?Instructions ?Recorded ciprofloxacin HCl 500 mg tablet 500 mg PO Q12H 3 days #6 tabs 04/28/20 phenazopyridine 100 mg tablet 100 mg PO TID 6 doses #6 tabs 04/28/20 (Pyridium) amoxicillin 875 mg-potassium 1 tab PO Q12H 10 days #20 tabs 06/12/22 clavulanate 125 mg tablet ferrous sulfate 325 mg (65 mg 325 mg PO DAILY #30 tabs 07/25/22 iron) tablet metronidazole 500 mg tablet 500 mg PO BID 7 days #14 t abs 07/30/22 cefdinir 300 mg capsule 300 mg PO BID 7 days #14 cap s 01/13/23 ondansetron 4 mg disintegrating 4 mg PO Q8H 3 days #9 tabs 01/13/23 tablet cefuroxime axetil 250 mg tablet 250 mg PO BID 7 days # 13 tabs 05/28/23 phenazopyridine 100 mg tablet 100 mg PO TID PRN pain 6 doses #6 05/28/23 (Pyridium) tabs Allergies Allergy/AdvReac Type Severity Reaction Status Date / Time No Known Allergies Allergy Verified 03/04/25 13:38 Review of Systems 2 Review of Systems: As per HPI Yes all other systems are reviewed and are negative Constitutional: Constitutional: Reports as per HPI PMFSH Past Medical History Medical History No known health problems Social History Social History Alcohol intake: never Advance Directives: No Advance Directives Information Provided: No Do you have a plan to hurt others: No Plan Physical Exam ED Vital Signs: Vital Signs - 24 hr 03/04/25 13:29 Temperature 98.3 F Pulse Rate 104 H Respiratory Rate 19 Blood Pressure 123/70 Pulse Oximetry 99 Oxygen Delivery Method Room Air BMI result Body Mass Index 25.3 Vital signs have been reviewed and appear to be correct. Blood pressure normal. Heart rate slightly tachycardic. Respiratory rate normal. Temperature normal. Oxygen saturation normal. Const General: cooperative, healthy appearing and no acute distress Orientation/consciousness: oriented to person, oriented to place, oriented to time and patient oriented x3 Limitations: no limitations HENMT Head: Yes normocephalic and Yes atraumatic Ears: external ears normal General nose exam: Normal external nose present Face and sinus: Yes face symmetric Mouth: oropharynx normal and moist mucous membranes Throat: Yes uvula midline Eyes Pupils: Equal, round and reactive pupils present Neck Neck: Yes normal visual inspection and Yes supple Resp Effort & Inspection: normal respiratory effort and able to speak in complete sentences Auscultation: clear to auscultation bilaterally Cardio Rate: regular rate Rhythm: regular rhythm Heart sounds: S1 normal heart sound present and S2 normal heart sound present GI Palpation (GI): Soft to palpation and nontender Auscultation: normoactive bowel sounds General: Yes no CVA tenderness Back/Spine/Pelvis Back: no CVA tenderness Skin General skin exam: elasticity normal and turgor normal Neuro General: oriented to person, oriented to place, oriented to time, patient oriented x3, moves all extremities, no focal motor deficits and CN's II-XI intact bilaterally Cranial nerves: Yes Equal, round and reactive pupils present Cognition (Neuro): normal cognition Extrem General: Yes full ROM, Yes no pedal edema and Yes no calf tenderness Psych Mental Status: mental status grossly normal Affect: normal affect Thought process: Normal thought process present Course Course Course Narrative: Rapid medical examination performed in triage by Petrona Bullock PA-C. Patient is a 34 year old assigned female at presenting to the emergency department with panic attacks over the last 2 weeks, especially when driving her vehicle. Detailed physical exam and review of systems are deferred to the substance abuse clinician. EKG, labs, and imaging ordered. Patient placed back in the waiting room pending room availability and results. Medical Decision Making Medical Decision Making [facility] Narrative: Patient is a 34-year-old Kosovan-speaking female presenting to the emergency department with complaint of intermittent episodes of acute anxiety over the past 1-2 weeks. On exam patient is awake, A+Ox3, VS WNL, afebrile, normal neurological exam without focal deficits, physical exam findings as above. Given reported symptoms and physical exam findings, initial differential includes but is not limited to acute anxiety episodes, cardiac arrhythmia, electrolyte abnormality, abnormal thyroid level. Wells score 1.5 for tachycardia, PE unlikely. Labs notable for anemia not at transfusable level, no significant electrolyte abnormalities, negative troponin, normal TSH, negative hCG. X-ray chest notable for no evidence of pneumonia, pneumothorax. My interpretation is in agreement with the radiologist's interpretation. Results discussed with patient and all questions answered. Advised patient to keep phone appointment with therapist at 4:00 p.m. today. Patient also provided with resources for a therapist in the community. Return precautions discussed at bedside. Patient verbalized understanding of and agreement with plan. In- person development advisor was utilized for all interactions, assessments, and discussions. Differential Diagnosis Differential Diagnoses: The differential diagnosis associated with the presentation includes As per [facility] Admission/Observation Consideration of admission/observation: Escalation of care including admission/observation considered Patient would have been admitted to the hospital had their clinical presentation warranted hospital admission. Lab Data [facility] Lab Attestation statement: I reviewed the patient's lab results. as per [facility] 03/04/25 13:51 03/04/25 13:51 Labs: Lab Results 03/04/25 Range/Units 13:51 WBC 6.4 (4.8-10.8) X10*3/uL RBC 4.58 (4.20-5.50) X10*6/uL Hgb 9.6 L (12.0-16.0) g/dl Hct 31.6 L (37.0-47.0) % MCV 69.0 L (80.0-98.0) fL MCH 21.0 L (27.0-33.0) pg MCHC 30.4 L (31.0-35.0) g/dl RDW 16.9 H (11.0-16.0) % Plt Count 400 (160-400) X10*3/uL MPV 10.1 (9.4-12.3) fL Immature Gran % (Auto) 0.2 (0.0-0.4) % Neut % (Auto) 67.0 (45-73) % Lymph % (Auto) 25.2 (20-40) % [place] % (Auto) 6.5 (2-11) % Eos % (Auto) 0.6 (0-4) % Baso % (Auto) 0.5 (0-2) % Lymph # (Auto) 1.6 (1.2-4.9) X10*3/uL [place] # (Auto) 0.4 (0.1-1.2) X10*3/uL Eos # (Auto) 0.0 (0.0-0.4) X10*3/uL Baso # (Auto) 0.0 (0.0-0.2) X10*3/uL Abs Immat Gran (auto) 0.01 (0.00-0.03) X10*3/uL Absolute Neuts (auto) 4.3 (2.0-8.3) x10*3/uL Absolute Nucleated RBC 0.000 (0.0-0.012) X10*3/uL Nucleated RBC % (auto) 0.0 (0.0-0.2) /100WBC PT 12.0 (10.9-12.4) SEC INR 1.0 (0.9-1.1) Sodium 140 (135-145) mmol/L Potassium 3.5 (3.3-5.1) mmol/L Chloride 104 (96-108) mmol/L Carbon Dioxide 27 (22-29) mmol/L Anion Gap 13 (12-20) BUN 11 (9-16) mg/dL Creatinine 0.71 (0.5-1.4) mg/dL Estim Creat Clear Calc 106.8 Estimated GFR > 60 Random Glucose 102 (60-115) mg/dL Calcium 9.2 (8.4-10.2) mg/dL Magnesium 2.0 (1.6-2.6) mg/dL Total Bilirubin 0.4 (0.0-1.0) mg/dL AST 26 (5-31) U/L ALT 15 (0-31) U/L Alkaline Phosphatase 56 (39-117) U/L Troponin I High Sens < 2.7 (<3.5-17.0) ng/L Total Protein 7.7 (6.5-8.0) g/dL Albumin 4.4 (3.5-5.0) g/dL TSH 0.36 (0.32-4.0) uIU/mL Beta HCG, Quant < 2 mIU/mL Independent Interpretation I performed an independent interpretation of an: EKG (normal sinus rhythm, rate 92bpm, normal KS interval and QTc) and Plain X-Ray (Chest x-ray is without evidence of pneumonia or pneumothorax) Interpretation: XR/XR chest 2V IMPRESSION: No acute disease Radiology Impression Discussion of test interpretation with radiology: I have reviewed the radiologist's reading. External Record Review External record reviewed: Inpatient record, Office record and Outpatient record Discharge Plan Discharge Clinical Impression: Acute anxiety Patient Disposition: Home, Self-Care Instructions: Panic Disorder (ED), Cognitive Behavioral Therapy (ED), Anxiety (ED) Additional Instructions: You were evaluated in the emergency department today for recent episodes of acute anxiety. Your medical evaluation did not show evidence of conditions requiring emergent medical treatment at this time. Keep the therapy phone appointment for this afternoon. Continue to use the hydroxyzine as prescribed. Follow up with your primary care provider as well. Return to the emergency department if you develop chest pain, palpitations, shortness of breath or any other new or concerning symptoms. Prescriptions: No Action ciprofloxacin HCl 500 mg tablet 500 mg PO Q12H 3 Days Qty: 6 0RF phenazopyridine [Pyridium] 100 mg tablet 100 mg PO TID Qty: 6 0RF amoxicillin-pot clavulanate 875-125 mg tablet 1 tab PO Q12H 10 Days Qty: 20 0RF ferrous sulfate 325 mg (65 mg iron) tablet 325 mg PO DAILY Qty: 30 0RF metronidazole 500 mg tablet 500 mg PO BID 7 Days Qty: 14 0RF ondansetron 4 mg tablet,disintegrating 4 mg PO Q8H 3 Days Qty: 9 0RF cefdinir 300 mg capsule 300 mg PO BID 7 Days Qty: 14 0RF phenazopyridine [Pyridium] 100 mg tablet 100 mg PO TID PRN (Reason: pain) Qty: 6 0RF cefuroxime axetil 250 mg tablet 250 mg PO BID 7 Days Qty: 13 0RF Print Language: Kosovan
--- NOTE | 2025-03-04 13:37 | ECG_ITS ---
Test Reason : RAPID HEART RATE Blood Pressure : */* mmHG Vent. Rate : 92 BPM Atrial Rate : 92 BPM P-R Int : 144 ms QRS Dur : 82 ms QT Int : 360 ms P-R-T Axes : 42 6 31 degrees QTcB Int : 445 ms Normal sinus rhythm Normal ECG No previous ECGs available Referred By: Petrona Bullock Electronically Signed By: LUISITO BELTRE
--- NOTE | 2025-03-04 13:51 | MHC.EDTECH ---
Patient brought into triage area,EKG taken per order and signed by provider,labs drawn and sent to lab.
[2025-03-04 13:57] LABS: MANUAL DIFF FLAG NO
[2025-03-04 14:06] LABS: Hematocrit 31.6 % (37.0-47.0); Hemoglobin 9.6 g/dl (12.0-16.0); Imm Gran Abs Auto 0.01 X10*3/uL (0.00-0.03); Imm Gran Pct Auto 0.2 % (0.0-0.4); Lymphocytes Absolute Auto 1.6 X10*3/uL (1.2-4.9); Mean Corpuscular HGB Conc 30.4 g/dl (31.0-35.0); Mean Corpuscular Hemoglobin 21.0 pg (27.0-33.0); Mean Corpuscular Volume 69.0 fL (80.0-98.0); NRBC Abs Auto 0.000 X10*3/uL (0.0-0.012); NRBC Pct Auto 0.0 /100WBC (0.0-0.2); Platelet Count 400 X10*3/uL (160-400); Red Blood Count 4.58 X10*6/uL (4.20-5.50); White Blood Count 6.4 X10*3/uL (4.8-10.8)
[2025-03-04 14:08] LABS: INTERNATIONAL NORM RATIO 1.0 (0.9-1.1); Prothrombin Time 12.0 SEC (10.9-12.4)
[2025-03-04 14:21] LABS: Alanine Aminotransferase 15 U/L (0-31); Albumin Level 4.4 g/dL (3.5-5.0); Alkaline Phosphatase 56 U/L (39-117); Anion Gap 13 (12-20); Aspartate Amino Transferase 26 U/L (5-31); Blood Urea Nitrogen 11 mg/dL (9-16); Calcium 9.2 mg/dL (8.4-10.2); Carbon Dioxide 27 mmol/L (22-29); Chloride 104 mmol/L (96-108); Creatinine Clr Calc Pharmacy 106.8; Estimated Glomerular Filt Rate > 60; Magnesium 2.0 mg/dL (1.6-2.6); Potassium 3.5 mmol/L (3.3-5.1); Sodium 140 mmol/L (135-145); Total Protein 7.7 g/dL (6.5-8.0)
[2025-03-04 14:26] LABS: Troponin-I High Sensitivity < 2.7 ng/L (<3.5-17.0)
[2025-03-04 15:41] VITALS: BP 122/68; PULSE 82; RESP 16; TEMP 36.8; O2SAT 100
--- OUTSIDE RECORDS SUMMARY | 2025-03-04 15:56 | XMS_ITS | Patient Health Record ---
Author Organization [facility] Address [address] [id number] Care Team Providers Care Vehicle Body Sander Name Role Phone CASSIDYLAI Mccullough Unavailable [phone] JIMMYMARITZA Marte Unavailable [phone] Isha Gil Unavailable [phone] Allergies No Known Allergies Results Component Value Reference Range Notes Wet Mount Reviewed date:09/19/2024 10:33:11 AM Interpretation:Normal Performing Lab: Notes/Report: Normal Clue Cells neg WBC few Hyphae neg Trichomonas neg pH 5 ALBERTO Prep neg whiff Reason For Referral No Information Medications Medication SIG (Take, Route, Frequency, Duration) Notes Start Date End Date Status Citalopram Hydrobromide Active Ferrous Sulfate Not- Taking Immunizations Vaccine Route Administration Date Status Comme nts HPV 9 IM Intramuscular 02/11/2023 Administered HPV 9 IM Intramuscular 04/20/2023 Administered Vaccin e given by Tyler Berry RN, Student BUSINESS ANALYST CONSULTANT HPV 9 IM Intramuscular 08/22/2023 Administered Social History Sex Assigned At : Social History Observation Description Sex Assigned At Female Problems Problem Type SNOMED Code ICD Code Onset Dates Problem Status W/U Status Risk Notes Problem Chronic uterine inflammatory disease (841839471) Chronic inflammatory disease of uterus (N71.1) Active confirmed Problem Endometrial hyperplasia (167139553) Endometrial hyperplasia, unspecified (N85.00) Active confirmed Problem Irregular menstruation (59629503) Irregular menstruation, unspecified (N92.6) Active confirmed Problem Menstrual disorder (518291258) Irregular menses (N92.6) Active confirmed Vital Signs Blood pressure diastolic 76 mm Hg 09/19/2024 Height 5'2 in 09/19/2024 Blood pressure systolic 128 mm Hg 09/19/2024 Weight 153.4 lbs 09/19/2024 BMI 28.05 kg/m2 09/19/2024 Encounters Encounter Location Date Provider Diagnosis [facility] [address] [place], [place] [phone] 09/19/2024 LAI MARCANO Encounter for screening for other infectious and parasitic diseases Z11.8 Assessments Encounter Date Diagnosis (ICD Code) Assessment Notes Treatment Notes Treatment Clinical Notes Section Notes 09/19/2024 Encounter for screening for other infectious and parasitic diseases (ICD-10 - Z11.8) Clt declines routine STI screen. Defers exam for eval, but did perform self swab for microscopy eval. Reassured clt that wet mount is normal. Would encourage follow-up exam if symptoms persist or worsen. Discussed physiologic discharge Spent ___ minutes doing the following: Chart Prep Obtaining/review ing history Performing medically necessary exam Counseling/Coord ination of Care Documenting the visit Educating the patient Ordering medication/test/ procedures Communication of test results Established Patient: [id number] 20 Minutes Plan Of Treatment No Information Insurance Providers Payer Name Payer Address Payer Phone Subscriber Number Group Number Insured Name Patient Relationship to Insured Coverage Start Date Coverage End Date [place] [address] [place] [address] [phone] [id number] Melanie Calloway Self - patient is the insured Medical (General) History Medical History History ICD Code Anxiety Anemia Pelvic u/s 10/2023 with thickened endomtr ium, emb collected 01/11/24 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
--- OUTSIDE RECORDS SUMMARY | 2025-03-04 15:56 | XMS_ITS | Encounter Summary ---
Demographics Address [address] [place] [address] Mobile Phone Home Phone Work Phone Email Address Email Address Preferred Language es Marital Status Single Restorationism Affiliation Unknown Race Other Race Ethnic Group Unknown Author Organization [employer] Address [address] [facility] [facility] [address] [place] [address] Care Team Providers Care Electronic Warfare Technical Name Role Phone Ansley Foster MD Primary Care Pro vider Reason for Visit * Reason Onset Date Comments Results 11/04/2023 Encounter Details Date Type Department Care Team ([facility] st Contact Info) Description 11/04/2023 Telephone [facility] MEDICINE [address] [place] [address] Ansley Foster MD [address] [place] [address] Results Social History Tobacco Use Types Packs/Day Years Used Date Smoking Tobacco: Never Passive Smoke Exposure: Never Smokeless Tobacco: Never Alcohol Use Standard Drinks/Week Comments Never 0 (1 standard drink = 0.6 oz pur e alcohol) Depression Answer Date Recorded Patient Health Questionnaire-9 Score 8 03/16/2023 Housing Stability Answer Date Recorded What is your housing situation today? I have annmarie munoz 05/03/[address] you li ve. Do you have problems with any of the following? None of the above 05/03/2023 Food Insecurity Answer Date Recorded Within the past 12 months, y ou worried that your food would run out before you got money to buy more: Never True 05/03/2023 Within the past 12 months,th e food you bought just didn't last and you didn't have enough money to get more: Never True Transportation Answer Date Recorded In the past 12 months, has l ack of transportation kept you from medical appts, meetings, work or from getting things needed for daily living? No 05/03/2023 Utilities Answer Date Recorded In the past 12 months, has t he electric, gas, oil or water company threatened to shut off services in your home? No 05/03/2023 Depression Answer Date Recorded Patient Health Questionnaire-2 Score 1 03/16/2023 Comments No Sex and Gender Information Value Date Recorded Sex Assigned at Female 05/10/2022 10:30 AM EDT Legal Sex Female 10:30 AM EDT Gender Identity Female 05/10/2022 10:30 AM EDT Sexual Orientation Straight 05/10/2022 10 :30 AM EDT documented as of this encounter Miscellaneous Notes * Telephone Encounter - Dilma Boss RN - 11/07/2023 11:48 AM EDT US printed and sent to scan for provider review. * Telephone Encounter - Serjio Elder - 11/04/2023 12:01 PM EDT TC from pt requesting call back regarding Results. Type of results: US Pelvis Transvaginal Date when done: 11/02 Facility: [facility] [place] documented in this encounter Plan of Treatment Upcoming Encounters Date Type Department Care Team (Late st Contact Info) Description 04/12/2025 3:00 PM EDT Nutrition [facility] DIABETES/NUTRITION [address] [place] [address] [place] [address] documented as of this encounter Visit Diagnoses Not on filedocumented in this encounter Additional Health Concerns Assessment Noted Time PHQ-9 Depression Total Score: 8 03/16/20 23 8:59 AM EDT documented as of this encounter Care Teams Electronic Warfare Technical Relationship Specialty Start Date End Date Ansley Foster MD [address] [place] [address] PCP - General Internal Medicine 11/10/22 documented as of this encounter
--- OUTSIDE RECORDS SUMMARY | 2025-03-04 15:56 | XMS_ITS | Encounter Summary ---
Demographics Address [address] [facility] [address] [place] [address] Mobile Phone Home Phone Work Phone Email Address Email Address Preferred Language es Marital Status Single Baptist Affiliation Unknown Race Other Race Ethnic Group Unknown Author Organization [employer] Address [address] [place] [address] [address] [place] [address] Care Team Providers Care Acupressure Therapist Name Role Phone Ansley Foster MD Primary Care Pro vider Reason for Referral * Consultation (Routine) - Pending Review Specialty Diagnoses / Procedures Referred By Contkaleb patrick Referred To Contact Hematology and Oncology Diagnoses Other iron deficiency anemia Ansley Foster MD [address] [place] [address] Phone: tel: fax: Referral ID Status Reason Start Date Expiration Date Visits Requested Visits Authorized [id number] Pending Review Specialty Services Required 03/04/2025 03/04/2026 1 1 Encounter Details Date Type Department Care Team (Late st Contact Info) Description 03/04/2025 Orders Only [facility] MEDICINE [address] [place] [phone] Ansley Foster MD [address] [place], [place] [phone] Other iron deficiency anemia Social History Tobacco Use Types Packs/Day Years [...] housing situation today? I have annmarie munoz 08/01/[address] you li [...] AM EDT documented as of this encounter Plan of Treatment Upcoming Encounters Date Type Department Care Team (Late st Contact Info) Description 04/12/2025 3:00 PM EDT Nutrition [facility] DIABETES/NUTRITION [address] [place] [address] Angela Llanos, DESTINEY [address] [place] [address] Scheduled Referrals Name Type Priority Associated Diagnoses Order Schedule Referral to Hematology / Oncology Outpatient Referral Routine Other iron deficiency anemia Expected: 03/04/2025 (Approximate), Expires: 03/04/2026 documented as of this encounter Visit Diagnoses Diagnosis Other iron deficiency anemia documented in this encounter Additional Health Concerns Assessment Noted Time PHQ-9 Depression Total Score: 5 01/05/20 25 9:56 AM EDT documented as of this encounter Care Teams Acupressure Therapist Relationship Specialty Start Date End Date Ansley Foster MD [address] [place] [id number] PCP - General Internal Medicine 11/10/22 documented as of this encounter
--- OUTSIDE RECORDS SUMMARY | 2025-03-04 15:56 | XMS_ITS | Encounter Summary ---
Demographics Address [address] [facility] [address] [place] [address] Mobile Phone Home Phone Work Phone Email Address Email Address m Preferred Language es Marital Status Single Catholic Affiliation Unknown Race Other Race Ethnic Group Unknown Author Organization [employer] Address [address] [facility] [address] [place] [address] Care Team Providers Care Dental Billing Specialist Name Role Phone Ansley Foster MD Primary Care Pro vider Reason for Visit * Reason Comments Med Refill Encounter Details Date Type Department Care Team ([facility] st Contact Info) Description 12/08/2022 Refill [facility] MEDICINE [address] [place] [address] Ansley Foster MD [address] [place] [address] Social History Tobacco Use Types Packs/Day Years Used Date Smoking Tobacco: Never Passive Smoke Exposure: Never Smokeless Tobacco: Never Alcohol Use Standard Drinks/Week Comments Never 0 (1 standard drink = 0.6 oz pur e alcohol) Comments Unknown Sex and Gender Information Value Date Recorded Sex Assigned at Female 05/10/2022 10:30 AM EDT Legal Sex Female 10:30 AM EDT Gender Identity Female 05/10/2022 10:30 AM EDT Sexual Orientation Straight 05/10/2022 10 :30 AM EDT COVID-19 Exposure Response Date Recorded In the last 10 days, have yo u been in contact with someone who was confirmed or suspected to have Coronavirus/COVID-19? No / Unsure 12/08/2022 3:10 PM EDT documented as of this encounter Functional Status * Over the past 2 weeks, how often have you been bothered by any of the following problems? Question Answer Date of Assessment Author Patient Health Questionnaire-2 Score 2 11/10 3:54 PM EDT Yovana Kam [place] * If you checked off any problems on this questionnaire so far, Question Answer Date of Assessment Author How difficult have these problems made it for you to do your work, take care of things at home, or get along with other people? Not difficult at all 12/08/2022 3:54 PM EDT Yovana Kam [place] * Over the past 2 weeks, how often have you been bothered by any of the following problems? Question Answer Date of Assessment Author Little interest or pleasure in doing things Several days 12/08/2022 3:54 PM EDT Yovana Kam [place] Feeling down, depressed, or hopeless Several days 12/08/2022 3:54 PM EDT Yovana Kam [place] Trouble falling or staying asleep, or sleeping too much Nearly every day 12/08/2022 3:54 PM EDT Yovana Kam [place] Feeling tired or having little energy Not at all 12/08/2022 3:54 PM EDT Yovana Kam [place] Poor appetite or overeating Not at all 12/08/2022 3: 54 PM EDT Yovana Kam [place] Feeling bad about yourself - or that you are a failure or have let yourself or your family down Not at all 12/08/2022 3:54 PM EDT Yovana Kam [place] Trouble concentrating on things, such as reading the newspaper or watching television Not at all 12/08/2022 3:54 PM EDT Yovana Kam MA Moving or speaking so slowly that other people could have noticed? Or the opposite - being so fidgety or restless that you have been moving around a lot more than usual. Not at all 12/08/2022 3:54 PM EDT Yovana Kam MA Thoughts that you would be better off or hurting yourself in some way Not at all 12/08/2022 3:54 PM EDT Yovana Kam MA Patient Health Questionnaire-9 Score 5 12/08/2022 3:54 PM EDT Yovana Kam MA documented as of this encounter Miscellaneous Notes * Telephone Encounter - Ansley Friend MD - 12/09/2022 8:57 AM EDT No need further treatment documented in this encounter Plan of Treatment Upcoming Encounters Date Type Department Care Team (Late st Contact Info) Description 04/12/2025 3:00 PM EDT Nutrition [facility] DIABETES/NUTRITION [address] [place], [place] [phone] Angela Llanos RD [address] [place], [place] [phone] documented as of this encounter Visit Diagnoses Not on filedocumented in this encounter Additional Health Concerns Assessment Noted Time PHQ-9 Depression Total Score: 5 12/09/19 3:54 PM EDT documented as of this encounter Care Teams Dental Billing Specialist Relationship Specialty Start Date End Date Ansley Foster MD [address] [place], [place] [phone] PCP - General Internal Medicine 11/10/22 documented as of this encounter
--- OUTSIDE RECORDS SUMMARY | 2025-03-04 15:56 | XMS_ITS | Encounter Summary ---
Demographics Address [address] [place] [address] Mobile Phone Home Phone Work Phone Email Address Email Address Preferred Language es Marital Status Single Anglican Affiliation Unknown Race Other Race Ethnic Group Unknown Author Organization [employer] Address [address] [address] [place] [address] Care Team Providers Care Doctor Of Optometry Name Role Phone Ansley Foster MD Primary Care Pro vider Reason for Visit * Reason Onset Date Comments Referral 02/27/2025 Encounter Details Date Type Department Care Team ([facility] st Contact Info) Description 02/27/2025 Telephone [facility] MEDICINE [address] [place] [address] Ansley Foster MD [address] [place] [address] Referral Social History Tobacco Use Types Packs/Day Years [...] encounter Miscellaneous Notes * Telephone Encounter - Yovana Kam MA - 02/27/2025 3:42 PM EDT Contacted pt in regards to Nutrition referral, pt agreed to date/time of 04/12/2025 @3PM. LB documented in this encounter Plan of Treatment Upcoming Encounters Date Type Department Care Team (Late st Contact Info) Description 04/12/2025 3:00 PM EDT Nutrition [facility] DIABETES/NUTRITION [address] [place] [address] [place] [address] documented as of this encounter Visit Diagnoses Not on filedocumented in this encounter Additional Health Concerns Assessment Noted Time PHQ-9 Depression Total Score: 5 01/05/20 25 9:56 AM EDT documented as of this encounter Care Teams Doctor Of Optometry Relationship Specialty Start Date End Date Ansley Foster MD [address] [place] [address] PCP - General Internal Medicine 11/10/22 documented as of this encounter
--- OUTSIDE RECORDS SUMMARY | 2025-03-04 15:56 | XMS_ITS | Encounter Summary ---
Demographics Address [address] [place] [address] Mobile Phone Home Phone Work Phone Email Address Email Address Preferred Language es Marital Status Single Uatsdin Affiliation Unknown Race Other Race Ethnic Group Unknown Author Organization [employer] Address [address] [facility] [address] [place] [address] Care Team Providers Care Checkroom Attendant Name Role Phone Ansley Foster MD Primary Care Pro vider Reason for Visit * Reason Onset Date Comments Results 03/04/2025 Encounter Details Date Type Department Care Team (Latest Contact Info) Description 03/04/2025 Results Follow-Up [facility] MEDICINE [address] [place] [address] Ansley Foster MD [address] [place] [address] CBC auto differential, Prothrombin Time-INR, Comprehensive Metabolic Panel, Additional followed-up results: 4 Social History Tobacco Use Types Packs/Day Years [...] encounter Miscellaneous Notes * Telephone Encounter - Autumn Swanson RN - 03/04/2025 2:59 PM EDT TC placed to pt with [employer] sign language interpreter #[id number] to inform and advise of the result message below. The pt was informed that blood work resulted today indicated continued low H/H and pt was advised if not following with a bead builder that PCP would like to refer. Pt stated that she does not currently follow with a bead builder and was agreeable to the referral. The pt also requested a new prescriptionof the ferrous gluconate as she is currently out. Pt will continue to follow with PRE BILLING CLINICIAN for notable heavy menstrual cycles. ----- Message from Ansley Friend MD sent at 03/04/2025 2:40 PM EDT ----- Please can you check with pt is she is already following with bead builder for anemia Noted worsen anemia on labs done by outside provider She told me last apt that she could not take iron max twice a week If pt interested I can refer to Restoration Technician for consideration of IV iron abd also advise pt to continue to follow w her PRE BILLING CLINICIAN for heavy menstrual periods. Thanks ----- Message ----- From: Interface, Lab Results In Sent: 03/04/2025 2:06 PM EDT To: Ansley Friend MD * Result Encounter Note - Ansley Friend MD - 03/04/2025 2:40 PM EDT Please can you check with pt is she is already following with bead builder for anemia Noted worsen anemia on labs done by outside provider She told me last apt that she could not take iron max twice a week If pt interested I can refer to Restoration Technician for consideration of IV iron abd also advise pt to continue to follow w her PRE BILLING CLINICIAN for heavy menstrual periods. Thanks documented in this encounter Plan of Treatment Upcoming Encounters Date Type Department Care Team (Late st Contact Info) Description 04/12/2025 3:00 PM EDT Nutrition [facility] DIABETES/NUTRITION [address] [place] [address] Angela Llanos, DESTINEY [address] [place] [address] documented as of this encounter Visit Diagnoses Not on filedocumented in this encounter Additional Health Concerns Assessment Noted Time PHQ-9 Depression Total Score: 5 01/05/20 25 9:56 AM EDT documented as of this encounter Care Teams Checkroom Attendant Relationship Specialty Start Date End Date Ansley Foster MD [address] [place] [address] PCP - General Internal Medicine 11/10/22 documented as of this encounter
--- OUTSIDE RECORDS SUMMARY | 2025-03-04 15:56 | XMS_ITS | Encounter Summary ---
Demographics Address [address] [place] [address] Mobile Phone Home Phone Work Phone Email Address Email Address m Preferred Language es Marital Status Single Caodaism Affiliation Unknown Race Other Race Ethnic Group Unknown Author Organization [employer] Address [address] [facility] [address] [place] [address] Care Team Providers Care Social Work Nurse Name Role Phone Ansley Foster MD Primary Care Pro vider Encounter Details Date Type Department Care Team (Latest Contact Info) Description 02/27/2025 Travel Social History Tobacco Use Types Packs/Day Years [...] Info) Description 04/12/2025 3:00 PM EDT Nutrition [facility] DIABETES/NUTRITION [address] [place], [place] [id number] Angela Llanos [address] [place], [place] [phone] documented as of this encounter Visit Diagnoses Not on filedocumented in this encounter Additional Health Concerns Assessment Noted Time PHQ-9 Depression Total Score: 5 01/05/20 25 9:56 AM EDT documented as of this encounter Care Teams Social Work Nurse Relationship Specialty Start Date End Date Ansley Foster MD [address] [place], [place] [phone] PCP - General Internal Medicine 11/10/22 documented as of this encounter
--- OUTSIDE RECORDS SUMMARY | 2025-03-04 15:56 | XMS_ITS | Clinical Summary ---
Demographics Address [address] [place] [address] [address] [place] [address] Mobile Phone Home Phone Work Phone Email Address Email Address Preferred Language es Marital Status Single Episcopalian Affiliation Unknown Race Other Race Ethnic Group Unknown Author Organization [employer] Address [address] [facility] [address] [place] [address] Care Team Providers Care Acute Care Physician Name Role Phone Ansley Foster MD Primary Care Pro vider Allergies No known active allergies Medications * This document contains information received from the source organization and may not represent a complete record from that organization. Acetaminophen 500 MG capsule Take one to two tablets as needed for fever or pain every 6 hours 30 capsule 12/20/19 24 Active betamethasone, augmented, (Diprolene) 0.05 % ointmentIndica tions:Allergic contact dermatitis due to cosmetics Apply topically 2 times daily. 15 g 10/13/19 25 Active escitalopram (Lexapro) 10 MG tabletIndicati ons:Panic disorder Take 1 tablet (10 mg) by mouth Once per day. 30 tablet 2 02/28/20 25 025 Active hydrOXYzine HCl (Atarax) 25 MG tabletIndicati ons:Panic disorder Take 1 tablet (25 mg) by mouth every 8 (eight) hours if needed for itching. 30 tablet 02/28/20 25 025 Active ferrous gluconate (Fergon) 324 (38 Fe) MG tabletIndicati ons:Other iron deficiency anemia Take 1 tab every other day 45 tablet 1 03/04/20 25 Active Ascorbic Acid (vitamin C) 250 MG tablet Take 1 tablet (250 mg) by mouth every other day. 45 tablet 1 03/04/20 25 026 Active ferrous gluconate (Fergon) 324 (38 Fe) MG tabletIndicati ons:Other iron deficiency anemia Take 1 tab every other day 45 tablet 1 09/28/19 25 025 Discontinued(Re order (will not trigger notification to Pharmacy)) Active Problems Problem Noted Date Diagnosed Date Panic disorder 02/27/2025 Assessment & Plan (02/28/2025 2:34 PM EDT): During IBH Consult Melanie presenting with anxiety/worry associated to restlessness and/or feeling keyed-up/On edge , difficulty concentrating and/or mind going blank , and sleep disturbance difficulty falling asleep and Fear and Recurrent panic attacks (abrupt surge of intese alexander or discomfort that reaches peak within minutes and during which time the following occur (4 or more) palpitations, trembling/shaking, sensation of shortness of breath/smothering, feeling of choking, Chest pain/discomfort, dizzy/unsteady/light-headed/faint, Chills/heat sensation, fear of losing control, fear of dying; for a period of 0-6 mo, for most or all symptoms in the context of unable to identify significant stressors. Pt reported her panic sxs occur while driving. She describes episodes of sudden fear with no particular trigger associated with it. Pt reported in the past she had hx of panic disorder and was taken medication to treat sxs prescribed by PCP; she is not longer taking her medication. PCP will start medication today. Pt was referred for OP therapy on 01/17. Printed out letter with agency information. Assessment & Plan (02/27/2025 11:52 AM EDT): [facility] was called today I will start her again on escitalopram 10 mg daily I also prescribed hydroxyzine 25 mg every 8 hours as needed Patient to follow-up with PCP and therapist Dermatitis 03/16/2023 Assessment & Plan (08/01/2024 4:34 PM EST): - Did not improve with topical clotrimazole - Plan: Discontinue clotrimazole. Start triamcinolone cream. Reviewed med use and side effects. - Follow-up with any persistence or worsening of symptoms Assessment & Plan (03/16/2023 7:42 PM EDT): Noted small areas of dermatitis in her left middle finger -trial w clobetasone BID x 5 days -advised to avoid close contact w irritants Overweight (BMI 25.0-29.9) 03/16/2023 Assessment & Plan (03/16/2023 7:44 PM EDT): -gained 7 pounds in last 3 mo -Advised pt to improve diet and exercise,discussed healthy life style -discussed coronary care unit nurse referral -referred today Latex allergy 01/12/2023 Depression with anxiety 11/10/2022 Assessment & Plan (03/16/2023 7:40 PM EDT): PHQ9: today 8<---5< -----10 ,denies SI ,manuel nor hallucinations feeling sad and anxious since daughter was bullied at school,also reports panic attacks,denies hallucinations nor manuel , she is f w psychotx and psychiatrist -continue care w therapist outside clinic and psychiatrist -support provided and advised pt to try to increase physical activity and avoiding isolation -continue escitalopram 20 mg daily -prescribed 5 tab of alprazolam at previous visit for hx of recurrent panic attacks to take only as needed x it -states not needed so far Assessment & Plan (12/08/2022 8:18 PM EDT): PHQ9: today 5< -----10 ,denies SI ,manuel nor hallucinations states x last 9 months feeling sad and anxious since daughter was bullied at school,also reports panic attacks,denies hallucinations nor manuel , she is f w psychotx who referred pt to -pt already f w therapist outside clinic and was referred by therapist to psychiatrist but still pd to have apt -support provided and advised pt to try to increase physical activity and avoiding isolation -will increase escitalopram to 10 mg daily -prescribed 5 tab of calprazolam at previous visit for hx of recurrent panic attacks to take only as needed x it -states not needed so far -f up here in 4 weeks x depression , if stable then will continue eval e 3 mo if not f w psychiatrist until then -continue to f w her psychotx-outside practice Assessment & Plan (11/10/2022 7:50 PM EDT): PHQ9: 10 ,denies SI ,manuel nor hallucinations states x last 9 months feeling sad and anxious since daughter was bullied at school,also reports panic attacks,denies hallucinations nor manuel , she is f w psychotx who referred pt to -pt already f w therapist outside clinic and was referred by therapist to psychiatrist but still pd to have apt -Discussed in length today with pt about this chronic mental health condition -support provided and advised pt to try to increase physical activity and avoiding isolation -will start antidepressant( x 1st week 1/5 Tab of 10 mg escitalopram and after one week to take 1 tab) -explained how to take medication,possible SE, and to be aware of risk of possible SI while starting med , if SI present to call 911 -prescribed 5 tab for hx of recurrent panic attacks to take only as needed x it -f up here in 4 weeks Health care maintenance 11/10/2022 Assessment & Plan (03/16/2023 7:41 PM EDT): -PPD neg in 2016 -pap smear 2020 neg per pt in [place] to repeat in 3 y -will repeat in 2023 -vaccines: s/p tdap 2016,s/p covid 19 x3 (brought records) and Bivalent today here, ,HPV vaccine s/p 1st dose at [facility] -pd 2nd in 04/2023 ,hep B not immune-2nd dose today -and 3rd in 5 mo Assessment & Plan (12/08/2022 8:14 PM EDT): -PPD neg in 2017 -pap smear 2020 neg per pt in [place] to repeat in 3 y -will repeat in 2023 -vaccines: s/p tdap 2017,s/p covid 19 x3 including booster w Bivalent -pt to bring record , about HPV never got before-pt is interested -advised to check at vaccine clinic if not able to get to call here ,hep B not immune-start series today Assessment & Plan (11/10/2022 7:50 PM EDT): -pap smear 2020 neg per pt in [place] to repeat in 3 y -will repeat in 2023 -vaccines: s/p tdap 2016,s/p covid 19 x3---will check if got Bivalent if not will offer, will discuss about HPV vaccine at next visit -PPD neg in 2017 -ausculted a questionable murmur in left 2nd intercostal space but not clear---will eval again at next visit and will refer x echo if present -pt denies hx of murmurs---also can be present in setting of anemia ? -labs to be done in fasting -will C x labs Anemia 03/19/2016 Assessment & Plan (03/16/2023 7:43 PM EDT): Hx of anemia -reports x years ? 11/2022 hb 10.8<---8s , low iron panel-reports having heavy periods first 3 to 4 days Now improved menstrual periods for the last 2 months reported as normal No murmur is auscultated any more -likely was in setting of anemia -continue iron BID ,vit C metamucil prn -check CBC,iron panel today-will call pt w results,otherwise pt to call clinic 1 week after labs are done -will repeat anemia labs in 3 mo if stable today and will decrease to iron daily if resolution of anemia Assessment & Plan (12/08/2022 8:09 PM EDT): Hx of anemia -reports x years ? 11/2022 hb 10.8<---8s , low iron panel-reports having heavy periods first 3 to 4 days -start iron BID ,vit C metamucil prn -check CBC,iron panel in 3 mo to monitor -will f at next visit --given improved anemia w/o tx and per pt menstrual periods are not as heavy --if ongoing at next visit will refer x pelvic US Assessment & Plan (11/10/2022 7:40 PM EDT): Hx of anemia -reports x years ? Denies menorrhagia -CBC,iron panel, hemoglobinopathy eval Resolved Problems Problem Noted Date Diagnosed Date Resolved Date Thickened endometrium 11/24/20232023 Hematuria 09/28/2023 02/08/2024 Encounters * This document contains information received from the source organization and may not represent a complete record from that organization. Date Type Department Care Team Description 03/04/2025 Orders Only [facility] MEDICINE [address] [place] [phone] Ansley Foster MD Other iron deficiency anemia 03/04/2025 Results Follow-Up [address] [address] Ansley Foster MD CBC auto differential, Prothrombin Time-INR, Comprehensive Metabolic Panel, Additional followed-up results: 4 02/27/2025 10:20 AM EDT Office Visit [facility] [address] [place] [phone] Ansley Bell MD Panic disorder 02/27/[address] [address] Ansley Foster MD Referral 02/27/2025 Travel 01/04/2025 9:00 AM EDT Office Visit [address] [address] Ansley Foster MD Overweight (BMI 25.0-29.9) (Primary Dx); Dietary counseling; Exercise counseling; Annual physical exam; Health care maintenance; Other iron deficiency anemia; Depression with anxiety 01/04/2025 Travel 01/03/[address] [address] Ansley Foster MD CHART PREP 12/28/2024 Patient Outreach [facility] [address] [place], [place] [phone] Ansley Foster MD Pre-visit Planning (SDOH was already completed) from Last 3 Months Immunizations Immunization Administration Dates Next Due HPV 9-Valent 08/22/2023,04/20/2023,02/11/2023 Hep B, adult 09/29/2023,03/16/2023,12/08/2022 Influenza injectable quadriv alent IIV4 with preservative 07/13/2016 Influenza, seasonal, injecta ble, preservative free 05/09/2024 Pfizer Covid-19 Vaccine 12+ 05/09/2024 Pfizer Covid-19 Vaccine 12+ Bivalent 03/16/2023 Tdap 07/13/2016 Family History Medical History Relation Name Comments Cervical cancer Mother cousin: Bipolar dx Other Relation Name Status Comments Mother Other Social History Tobacco Use Types Packs/Day Years [...] your housing situation today? I have annmarie atmmy 08/01/[address] you li [...] Orientation Straight 05/10/2022 10 :30 AM EDT Last Filed Vital Signs Vital Sign Reading Time Taken Comments Blood Pressure 132/84 02/27/2025 9:50 AM EDT Pulse 69 02/27/2025 9:50 AM EDT Temperature 36.7 C (98.1 F) 02/27/2025 9:50 AM EDT Respiratory Rate 16 02/27/2025 9:50 AM EDT Oxygen Saturation 100% 02/27/2025 9:50 AM EDT Inhaled Oxygen Concentration - - Weight 68.9 kg (152 lb) 02/27/2025 9:50 AM EDT Height 162.6 cm (5' 4 ) 01/04/2025 8:58 AM EDT Body Mass Index 26.09 01/04/2025 8:58 AM EDT Plan of Treatment Upcoming Encounters Date Type Department Care Team (Late st Contact Info) Description 04/12/2025 3:00 PM EDT Nutrition [facility] DIABETES/NUTRITION [address] [place], [place] [phone] [address] [place], [place] [phone] Health Maintenance Due Date Last Done Comments Family Planning (PISQ) 2003 Pap Smear 2009 Cervical Cancer Screening 2018 HPV/Cotest 2018 Influenza Vaccine (#1) 2025 05/09/2024, 2016 SDOH Screening 08/01/2025 08/01/2024 Alcohol/Substance Use Screening 01/04/2026 01/04/2025 Depression Screening 01/04/2026 01/04/2025, 01/05/20 Disability Screening 01/04/2026 01/04/2025 Tobacco Screening 02/27/2026 02/27/2025 DTaP/Tdap/Td Vaccines (2 - Td or Tdap) 07/13/2026 07/13/2016 Zoster Vaccines (1 of 2) 2038 RSV Patients and Patients Aged 60 years or older (1 - 1-dose 75+ series) 2063 HPV Vaccines Completed 08/22/2023, 04/10, 02/11/2023 Hepatitis B Vaccines Completed 09/29/2023, 03/16/2023, 12/08/2022 HIV Screening Completed 02/06/2024, 11/17/2022 Hepatitis C Screening Completed 02/06/2024, 023 COVID-19 Vaccine Completed 05/09/2024, 12/2022, 09/23/2021, Additional history exists HIB Vaccines Aged Out No longer eligi ble based on patient's age to complete this topic Hepatitis A Vaccines Aged Out No long er eligible based on patient's age to complete this topic IPV Vaccines Aged Out No longer eligi ble based on patient's age to complete this topic Meningococcal B Vaccine Aged Out No l onger eligible based on patient's age to complete this topic Meningococcal Vaccine Aged Out No josue deborah eligible based on patient's age to complete this topic Pneumococcal Vaccine: Pediatrics (0 to 5 Years) and At-Risk Patients (6 to 49) Years Aged Out No longer eligible based on patient's age to complete this topic RSV under 20 months Aged Out No longe r eligible based on patient's age to complete this topic Rotavirus Vaccines Aged Out No longer eligible based on patient's age to complete this topic Procedures Procedure Name Priority Date/Time Associated Diagnosis Comments XR CHEST 2 VIEWS Routine 03/04/2025 1:53 PM EDT TSH W/REFLEX TO FT4 Routine 03/04/2025 1 :51 PM EDT Other iron deficiency anemia HIGH SENSITIVITY TROPONIN I Routine 03/04/2025 1:51 PM EDT Other iron deficiency anemia HCG, TOTAL, QN Routine 03/04/2025 1:51 PM EDT Other iron deficiency anemia MAGNESIUM Routine 03/04/2025 1:51 PM EDT Other iron deficiency anemia COMPREHENSIVE METABOLIC PANEL Routine 03/04/2025 1:51 PM EDT Other iron deficiency anemia PROTHROMBIN TIME-INR Routine 03/04/2025 1:51 PM EDT Other iron deficiency anemia CBC WITH AUTO DIFFERENTIAL Routine 03/04/2025 1:51 PM EDT Other iron deficiency anemia HEPATITIS C AB W/REFL TO HCV RNA, QN, PCR Routine 02/06/2024 8:25 AM EDT Annual physical exam HIV 1/2 ANTIGEN/ANTIBODY, FOURTH GENERATION W/RFL Routine 02/06/2024 8:25 AM EDT Annual physical exam from Last 3 Months or Most Recently Relevant to Health Maintenance Results * XR Chest 2 Views (03/04/2025 1:53 PM EDT) Anatomical Region Laterality Modality Chest Radiographic Yamilet ging 03/04/2025 1:53 PM EDT Narrative 03/04/2025 3:03 PM EDT [address] [address] XRay Report Signed Patient: Melanie Jones MR#: [id number] : 1990 Acct:[id number] Age/Sex: 34 / F ADM Date: 03/04/25 Loc: .ED Attending Dr: Ordering Physician: Petrona Bullock Date of Service: 03/04/25 Procedure(s): XR chest 2V Accession Number(s): [id number] cc: Petrona Bullock; Ansley Foster MD EXAMINATION: XR CHEST CLINICAL INFORMATION: palpitations COMPARISON: None available. TECHNIQUE: 2 views of the chest were obtained. FINDINGS: No significant abnormality is noted involving the heart, lungs, mediastinum, bony thorax or soft tissues. XR/XR chest 2V IMPRESSION: No acute disease Electronically signed by: Colby Palumbo MD 03/04/2025 02:59 PM EDT Dictated By: Colby Palumbo MD Signed By: <Electronically signed by Colby Palumbo MD in OV> 03/04/25 1459 DD/ 1353 TD/TT: 03/04/25 1449 Branch Coordinator: Procedure Note Donotuseinterpreter, Image - 03/04/[address] [address] XRay Report Signed Patient: Diana JonesR#: [id number] : 1990Acct:[id number] Age/Sex: 34 / FADM Date: 03/04/25 Loc: HO.ED Attending Dr: Ordering Physician: Petrona Bullock Date of Service: 03/04/25 Procedure(s): XR chest 2V Accession Number(s): [id number] cc: Petrona Bullock; Ansley Foster MD EXAMINATION: XR CHEST CLINICAL INFORMATION: palpitations COMPARISON: None available. TECHNIQUE: 2 views of the chest were obtained. FINDINGS: No significant abnormality is noted involving the heart, lungs, mediastinum, bony thorax or soft tissues. XR/XR chest 2V IMPRESSION: No acute disease Electronically signed by: Colby Palumbo MD 03/04/2025 02:59 PM EDT RP Dictated By: Colby Palumbo MD Signed By: <Electronically signed by Colby Palumbo MD in OV> 03/04/25 1459 DD/ 1353 TD/TT: 03/04/25 1449 Branch Coordinator: [facility] External Provider IMG XR PROCEDURES Final Result * High Sensitivity Troponin I (03/04/2025 1:51 PM EDT) [facility] TROPONIN I HIGH SENSITIVITY <2.7 <3.5 - 17.0 ng/L [facility] Comment:The [place] high sens itivity Troponin-I results should beused in conjunction with other diagnostic information suchas ECG, clinical observations and information, and patientsymptoms to aid in the diagnosis of IN. 03/04/2025 1:51 PM EDT 03/04/2025 1:55 PM EDT Generic External Data Provider LAB BLOOD ORDERAB LES Final Result [facility] [address] [place] [phone] * TSH with Reflex to Free T4 (03/04/2025 1:51 PM EDT) [facility] TSH reflex Free T4 0.36 0.32 - 4.0 uIU/mL [facility] 03/04/2025 1:51 PM EDT 03/04/2025 1:55 PM EDT us Generic External Data Provider LAB BLOOD ORDERAB LES Final Result [facility] [address] [place], [place] [phone] * (ABNORMAL) CBC auto differential (03/04/2025 1:51 PM EDT) White Blood Count 6.4 4.8 - 10.8 X10*3/uL [facility] Red Blood Count 4.58 4.20 - 5.50 X10*6/uL [facility] Hemoglobin 9.6(L) 12.0 - 16.0 g/dl [facility] Hematocrit 31.6(L) 37.0 - 47.0 % [facility] Mean Corpuscular Volume 69.0(L) 80.0 - 98.0 fL [facility] Mean Corpuscular Hemoglobin 21.0(L) 27.0 - 33.0 pg [facility] Mean Corpuscular HGB Conc 30.4(L) 31.0 - 35.0 g/dl [facility] Red Cell Distribution Width 16.9(H) 11.0 - 16.0 % [facility] Platelet Count 400 160 - 400 X10*3/uL [facility] Mean Platelet Volume 10.1 9.4 - 12.3 fL [facility] Neutrophils Percent Auto 67.0 45 - 73 % [facility] Imm Gran Pct Auto 0.2 0.0 - 0.4 % [facility] Lymphocytes Percent Auto 25.2 20 - 40 % [facility] Monocytes Percent Auto 6.5 2 - 11 % [facility] Eosinophils Percent Auto 0.6 0 - 4 % [facility] Basophils Percent Auto 0.5 0 - 2 % [facility] NRBC Pct Auto 0.0 0.0 - 0.2 /100WBC [facility] Neutrophils Absolute Auto 4.3 2.0 - 8.3 x10*3/uL [facility] Imm Gran Abs Auto 0.01 0.00 - 0.03 X10*3/uL [facility] Lymphocytes Absolute Auto 1.6 1.2 - 4.9 X10*3/uL [facility] Monocytes Absolute Auto 0.4 0.1 - 1.2 X10*3/uL [facility] Eosinophils Absolute Auto 0.0 0.0 - 0.4 X10*3/uL [facility] Basophils Absolute Auto 0.0 0.0 - 0.2 X10*3/uL [facility] NRBC Abs Auto 0.000 0.0 - 0.012 X10*3/uL [facility] 03/04/2025 1:51 PM EDT 03/04/2025 1:55 PM EDT us Generic External Data Provider LAB BLOOD ORDERAB LES Final Result [facility] [address] [place] [phone] * Prothrombin Time-INR (03/04/2025 1:51 PM EDT) Prothrombin Time 12.0 10.9 - 12.4 SEC [facility] INTERNATIONAL NORM RATIO 1.0 0.9 - 1.1 [facility] Comment:INTERNATIONAL NORMAL IZED RATIO (INR) REFERENCE RANGES Reference RangeFor patients not on anticoagulant therapy: 0.9 - 1.1INR ranges for oral anticoagulanttherapy:For prevention and treatment of venous thrombosis and pulmonary embolism: 2.0 - 3.0For acute myocardial infarction with aspirin therapy: 2.0 - 3.0For acute myocardial infarction without aspirin therapy: 3.0 - 4.0For patients with mechanical prosthetic heart valves: 2.5 - 3.5 03/04/2025 1:51 PM EDT 03/04/2025 1:55 PM EDT us Generic External Data Provider LAB BLOOD ORDERAB LES Final Result Performing Organization Address [facility]/ZIP Co de Phone Number [facility] [address] [place] [phone] * hCG, Total, Quantitative (03/04/2025 1:51 PM EDT) HCG Quantitative <2 mIU/mL [facility] Comment:Weeks post LMP Appro ximate hCG(Last Menstrual Period) Range (mIU/ml)3 - 4 weeks 9 - 1304 - 5 weeks 75 - 2,6005 - 6 weeks 850 - 20,8006 - 7 weeks 4000 - 100,2007 - 12 weeks 11,500 - 289,89673 - 16 weeks 18,300 - 137,66976 - 29 weeks (2nd trimester) 1,400 - 53,57790 - 41 weeks (3rd trimester) 940 - 60,000The [place] B- hCG assay is used for the early detection ofpregnancy; it cannot be used to diagnose any conditionunrelated to . If a B-hCG level is not supportedby the clinical evidence, results should be confirmed by analternative method (qualitative urine hCG, for example). 03/04/2025 1:51 PM EDT 03/04/2025 1:55 PM EDT us Generic External Data Provider LAB BLOOD ORDERAB LES Final Result Performing Organization Address [facility] Co de Phone Number [facility] [address] [place] [phone] * Magnesium (03/04/2025 1:51 PM EDT) Magnesium 2.0 1.6 - 2.6 mg/dL [facility] 03/04/2025 1:51 PM EDT 03/04/2025 1:55 PM EDT us Generic External Data Provider LAB BLOOD ORDERAB LES Final Result Performing Organization Address City/[facility]/ZIP Co de Phone Number [facility] [address] [place] [phone] * Comprehensive Metabolic Panel (03/04/2025 1:51 PM EDT) Sodium 140 135 - 145 mmol/L [facility] Potassium 3.5 3.3 - 5.1 mmol/L [facility] Chloride 104 96 - 108 mmol/L [facility] Carbon Dioxide 27 22 - 29 mmol/L [facility] Anion Gap 13 12 - 20 [facility] Urea Nitrogen (BUN) 11 9 - 16 mg/dL [facility] Creatinine, Serum 0.71 0.5 - 1.4 mg/dL [facility] Creatinine Clr Calc Pharmacy 106.8 [facility] Comment:Provided height and weight: 165.1 cm,68.946 kg.eGFR (calculated from the MDRD study equation) and eCrCl(calculated from the Cockcroft-Gault equation) are based ondifferent parameters and may not yield comparable results.If eCrCl result is absurd, please check patient'sheight/weight. Estimated Glomerular Filt Rate >60 [facility] Comment:Chronic Kidney Disea se: Estimated GFR < 60 mL/min/[id number] Kidney Disease: Estimated GFR < 15 mL/min/1.73m2 Glucose 102 60 - 115 mg/dL [facility] Calcium 9.2 8.4 - 10.2 mg/dL [facility] Bilirubin, Total 0.4 0.0 - 1.0 mg/dL [facility] Aspartate Amino Transferase 26 5 - 31 U/L [facility] Alanine Aminotransferase 15 0 - 31 U/L [facility] Total Protein 7.7 6.5 - 8.0 g/dL [facility] Albumin Level 4.4 3.5 - 5.0 g/dL [facility] Alkaline Phosphatase 56 39 - 117 U/L [facility] 03/04/2025 1:51 PM EDT 03/04/2025 1:55 PM EDT us Generic External Data Provider LAB BLOOD ORDERAB LES Final Result Performing Organization Address [facility] Co de Phone Number [facility] [address] [place] [phone] * Hepatitis C Antibody with Reflex to HCV, RNA, Quantitative, Real-Time PCR (02/06/2024 8:25 AM EDT) Hepatitis C Antibody Nonreactive Nonreactive [facility] Comment:Antibodies to HCV no t detected; does not exclude early acuteHCV infection. Blood Venous blood specimen / Unknown 02/06/2024 8:25 AM EDT 02/06/2024 11:37 AM EDT us Ansley Friend MD LAB BLOOD ORDERAB LES Final Result Performing Organization Address [facility] Co de Phone Number [facility] [address] [place] [phone] * HIV-1/2 Antigen and Antibodies, Fourth Generation, with Reflexes (02/06/2024 8:25 AM EDT) Pathologist [facility] HIV AB/AG Nonreactive Nonreactive [facility] Comment:HIV-1 p24 Ag and/or HIV-1/HIV-2 Ab not detected.A test result that is nonreactive does not exclude thepossibility of exposure to or infection with HIV-1 and/orHIV-2. Nonreactive results in this assay for individualswith prior exposure to HIV-1 and/or HIV-2 may be due toantigen and antibody levels that are below the limit ofdetection of this assay.The [email or web address] HIV Ag/Ab Combo assay result andsupplemental assay results should be interpreted inconjunction with the patient's clinical presentation,history and other laboratory results. If the results areinconsistent with clinical evidence, additional testing issuggested to confirm the result. Blood Venous blood specimen / Unknown 02/06/2024 8:25 AM EDT 02/06/2024 11:37 AM EDT us Ansley Friend MD LAB BLOOD ORDERAB LES Final Result [facility] [address] [place] [address] [phone] from Last 3 Months or Most Recently Relevant to Health Maintenance Insurance [address] [place] [id number] [facility] [address] [place] [phone] [place] [phone] [place] [phone] Care Teams Acute Care Physician Relationship Specialty Start Date End Date Ansley Foster MD [address] [place] [address] PCP - General Internal Medicine 11/10/22
--- OUTSIDE RECORDS SUMMARY | 2025-03-04 15:56 | XMS_ITS | Encounter Summary ---
Demographics Address [address] [facility] [address] [place] [address] Mobile Phone Home Phone Work Phone Email Address Email Address m Preferred Language es Marital Status Single Jew Affiliation Unknown Race Other Race Ethnic Group Unknown Author Organization [employer] Address [address] [facility] [address] [place] [address] Care Team Providers Care Stationary Plant Operators Name Role Phone Ansley Foster MD Primary Care Pro vider Reason for Referral * Consultation (Routine) - Closed Specialty Diagnoses / Procedures Referred By Candy patrick Referred To Contact Family Medicine Diagnoses Dermatitis Melissa Martínez FNP [address] [place] [address] Phone: tel: fax: Referral ID Status Reason Start Date Expiration Date V isits Requested Visits Authorized [id number] Closed Specialty Services Required 08/14/2024 08/14/2025 1 1 Reason for Visit * Reason Onset Date Comments Referral 08/14/2024 Encounter Details Date Type Department Care Team ([facility] st Contact Info) Description 08/14/2024 Telephone [facility] MEDICINE [address] [place] [address] Ansley Foster MD [address] [place] [address] Referral Social History Tobacco Use Types Packs/Day Years Used Date Smoking Tobacco: Never Passive Smoke Exposure: Never Smokeless Tobacco: Never Alcohol Use Standard Drinks/Week Comments Never 0 (1 standard drink = 0.6 oz pur e alcohol) Depression Answer Date Recorded Patient Health Questionnaire-9 Score 2 05/09/2024 Patient Health Questionnaire-9 Score 2 05/09/2024 Last PHQ-9: Questionnaire Data Not on file 1 Housing Stability Answer Date Recorded What is [...] Answer Date Recorded Patient Health Questionnaire-2 Score 0 05/09/2024 Internet Access Answer Date Recorded Internet Access [...] encounter Miscellaneous Notes * Telephone Encounter - Alice Quinones - 09/10/2024 12:23 PM EST Tc from pt requesting status of referral, pt states have not received a call to make an appt with the editor farm journal. * Telephone Encounter - SHERIE Ha - 08/14/2024 1:30 PM EST Referral placed to [facility] Derm team, thanks! * Telephone Encounter - Alice Quinones - 08/14/2024 12:48 PM EST Tc from pt requesting Color Television Console Monitor referral. (Last visit 08/01/, Tanya) [phone] (sinhala) documented in this encounter Plan of Treatment Upcoming Encounters Date Type Department Care Team ([facility] st Contact Info) Description 04/12/2025 3:00 PM EDT Nutrition [facility] DIABETES/NUTRITION [address] [place], [place] [phone] Angela Llanos, RD [address] [place], [place] [phone] Scheduled Referrals Name Type Priority Associated Diagnoses Orde r Schedule Referral to [facility] Derm Skin Adult Outpatient Referral Routine Dermatitis Expected: 08/14/2024 (Approximate), Expires: 08/14/2025 documented as of this encounter Visit Diagnoses Diagnosis Dermatitis- Primary Contact dermatitis and other eczema, due to unspecified cause documented in this encounter Additional Health Concerns Assessment Noted Time PHQ-9 Depression Total Score: 2 05/09/20 24 9:30 AM EDT documented as of this encounter Care Teams Stationary Plant Operators Relationship Specialty Start Date End Date Ansley Foster MD [address] [place] [address] PCP - General Internal Medicine 11/10/22 documented as of this encounter
--- OUTSIDE RECORDS SUMMARY | 2025-03-04 15:56 | XMS_ITS | Encounter Summary ---
Demographics Address [address] [facility] [address] [place] [address] Mobile Phone Home Phone Work Phone Email Address Email Address m Preferred Language es Marital Status Single Samaritan Affiliation Unknown Race Other Race Ethnic Group Unknown Author Organization [employer] Address [address] [facility] [address] [place] [address] Care Team Providers Care Supervisor Tan Room Name Role Phone Ansley Foster MD Primary Care Pro vider Reason for Visit * Reason Comments Med Refill Encounter Details Date Type Department Care Team ([facility] st Contact Info) Description 12/21/2023 Refill [facility] MEDICINE [address] [place] [address] Ansley Foster MD [address] [place] [address] Social History Tobacco Use Types Packs/Day Years [...] Info) Description 04/12/2025 3:00 PM EDT Nutrition [facility] DIABETES/NUTRITION [address] [place], [place] [phone] Angela Llanos [address] [place], [place] [phone] documented as of this encounter Visit Diagnoses Not on filedocumented in this encounter Additional Health Concerns Assessment Noted Time PHQ-9 Depression Total Score: 8 03/16/20 23 8:59 AM EDT documented as of this encounter Care Teams Supervisor Tan Room Relationship Specialty Start Date End Date Ansley Foster MD [address] [place], [place] [phone] PCP - General Internal Medicine 11/10/22 documented as of this encounter
--- OUTSIDE RECORDS SUMMARY | 2025-03-04 15:56 | XMS_ITS | Encounter Summary ---
Demographics Address [address] [facility] [address] [place] [address] Mobile Phone Home Phone Work Phone Email Address Email Address m Preferred Language es Marital Status Single Quaker Affiliation Unknown Race Other Race Ethnic Group Unknown Author Organization [employer] Address [address] [facility] [address] [place] [address] Care Team Providers Care Online Marketing Director Name Role Phone Ansley Foster MD Primary Care Pro vider Reason for Visit * Reason Onset Date Comments Appointment Request 10/03/2023 Encounter Details Date Type Department Care Team ([facility] st Contact Info) Description 10/03/2023 Telephone [facility] MEDICINE [address] [place] [address] Ansley Foster MD [address] [place] [address] Appointment Request Social History Tobacco Use Types Packs/Day Years [...] encounter Miscellaneous Notes * Telephone Encounter - La Tristan - 10/03/2023 10:26 AM EDT Tc from pt requesting an appointment with organ pipe maker metal. Pt was scheduled 05/24/2023. Please contact pt at [phone] documented in this encounter Plan of Treatment Upcoming Encounters Date Type Department Care Team (Late st Contact Info) Description 04/12/2025 3:00 PM EDT Nutrition [facility] DIABETES/NUTRITION [address] [place] [address] [place] [address] documented as of this encounter Visit Diagnoses Not on filedocumented in this encounter Additional Health Concerns Assessment Noted Time PHQ-9 Depression Total Score: 8 03/16/20 23 8:59 AM EDT documented as of this encounter Care Teams Online Marketing Director Relationship Specialty Start Date End Date Ansley Foster MD [address] [place] [address] PCP - General Internal Medicine 11/10/22 documented as of this encounter
--- OUTSIDE RECORDS SUMMARY | 2025-03-04 15:56 | XMS_ITS | Encounter Summary ---
Demographics Address [address] [facility] [address] [place] [address] Mobile Phone Home Phone Work Phone Email Address Email Address Preferred Language es Marital Status Single Hinduism Affiliation Unknown Race Other Race Ethnic Group Unknown Author Organization [employer] Address [address] [facility] [address] [place] [address] Care Team Providers Care Feather Trimmer Name Role Phone Ansley Foster MD Primary Care Pro vider Reason for Visit * Reason Onset Date Comments Appointment Request 10/08/2024 Encounter Details Date Type Department Care Team ([facility] Contact Info) Description 10/08/2024 Telephone [facility] MEDICINE [address] [place] [address] Ansley Foster MD [address] [place] [address] Appointment Request Social History Tobacco Use Types [...] encounter Miscellaneous Notes * Telephone Encounter - Theodore Franklin - 10/08/2024 8:32 AM EDT Tc from pt requesting appointment for DERM please return call [phone] documented in this encounter Plan of Treatment Upcoming Encounters Date Type Department Care Team (Late st Contact Info) Description 04/12/2025 3:00 PM EDT Nutrition [facility] DIABETES/NUTRITION [address] [place] [address] [place] [address] documented as of this encounter Visit Diagnoses Not on filedocumented in this encounter Additional Health Concerns Assessment Noted Time PHQ-9 Depression Total Score: 2 05/09/20 24 9:30 AM EDT documented as of this encounter Care Teams Feather Trimmer Relationship Specialty Start Date End Date Ansley Foster MD [address] [place] [address] PCP - General Internal Medicine 11/10/22 documented as of this encounter
== END 2025-03-04 15:42 | disposition home or self-care (01) ==
PROVIDERS: Physician Assistant Medical; Emergency Provider Emergency Medicine; PCP Student in an Organized Health Care Education/Training Program
DX: F43.0 Acute stress reaction (principal); R00.0 Tachycardia, unspecified; F41.1 Generalized anxiety disorder; Z79.899 Other long term (current) drug therapy
CPT/HCPCS: 36415; 71046; 80053; 83735; 84443; 84484; 84702; 85025; 85610; 93005; 99283; 99284

== ENCOUNTER → 2025-03-04 13:37 | Outpatient (BNV) | payer MEDICAID, SELFPAY | PROVIDERS: Emergency Provider Emergency Medicine; PCP Student in an Organized Health Care Education/Training Program; Visit Provider Internal Medicine | DX: R00.0 Tachycardia, unspecified (principal) | CPT/HCPCS: 93010 ==

== ENCOUNTER → 2025-03-04 13:37 | Outpatient (BNV) | payer MEDICAID, SELFPAY | PROVIDERS: Emergency Provider Emergency Medicine; PCP Student in an Organized Health Care Education/Training Program; Visit Provider Radiology Diagnostic Radiology | DX: R00.2 Palpitations (principal) | CPT/HCPCS: 71046 ==

== ENCOUNTER 2025-03-05 12:05 | Emergency (ER) | payer MEDICAID, SELFPAY ==
--- OUTSIDE RECORDS SUMMARY | 2024-06-06 10:30 | XMS_ITS ---
Author Organization [facility] Address [address] [place] [phone] Care Team Providers Care Nutrition Internship Name Role Phone MARITZA MARQUEZ Unavailable [phone] REASON FOR VISIT Routine Testing Social History Sex Assigned At : Social History Observation Description Sex Assigned At Female Encounters Encounter Location Date Provider Diagnosis [facility] [address] [place], [place] [phone] MARITZA MARQUEZ Plan Of Treatment No Information Progress Notes * Melanie SIERRA MDOB: [birth year] (34 yo F)Acc No.[id number]:06/06/2024 Progress Notes Patient: Sania GILLES Melanie Castellanos Provider: Rom MARQUEZ :1990 A ge:34 Y S ex:Female Date:06/06/2024 Address:[address] [place], [place] [phone] Subjective: * Chief Complaints: * 1 . Routine Testing. * Medical History: Objective: * Vitals: Assessment: Plan: * Treatment: * Billing Information: * Visit Code: * Procedure Codes: * Electronic signature of CLAUDE MARQUEZ CNM on 03/05/2025 at 01:33 PM EDT Sign off status: Pending * Provider: Rom MARQUEZ Date: 08/06/2023 Generated for Anatoliy young/Bob/eTransmitting on: 0 03/05/2025 01:33 PM EDT
--- OUTSIDE RECORDS SUMMARY | 2024-06-15 06:00 | XMS_ITS ---
Author Organization [facility] Address [address] [place] [phone] Care Team Providers Care Four Roll Calender Operator Name Role Phone Isha Gil Unavailable [phone] REASON FOR VISIT Infection Screening Social History Sex Assigned At : Social History Observation Description Sex Assigned At Female Encounters Encounter Location Date Provider Diagnosis [facility] [place], [place] [phone] 06/15/2024 Isha Gil Plan Of Treatment No Information Progress Notes * Melanie SIERRA MDOB: [birth year] (34 yo F)Acc No.[id number]:06/15/2024 Progress Notes Patient: Santiago GLOVERdeangelodavonte Castellanos Provider: SANIA Mazariegos :1990 A ge:34 Y S ex:Female Date:06/15/2024 Address:[address] [place] [phone] Subjective: * Chief Complaints: * 1 . Infection Screening. * Medical History: Objective: * Vitals: Assessment: Plan: * Treatment: * Billing Information: * Visit Code: * Procedure Codes: * Electronic signature of JAQUI Morales on 03/05/2025 at 01:33 PM EDT Sign off status: Pending * Provider: SANIA Mazariegos Date: 08/16/2023 Generated for Anatoliy young/Bob/eTransmitting on: 0 03/05/2025 01:33 PM EDT
--- NOTE | ~2025-03-05 | CT_ITS ---
CLINICAL HISTORY: auditory hallucination CT head without contrast Comparison: None provided Findings: No intra-axial mass, midline shift, hydrocephalus, or acute hemorrhage. No significant atrophy-like change or white matter disease. There is no sinus or mastoid fluid. The orbits are unremarkable. No skull fracture. IMPRESSION: 1. No acute intracranial findings. This document has been electronically signed by: Uche Guillen MD on 03/05/2025 19:11:07
[2025-03-05 12:28] VITALS: BP 145/85; PULSE 91; RESP 20; TEMP 36.7; O2SAT 96; BMI 25.3
--- NOTE | 2025-03-05 12:36 | ED.GENADULT ---
HPI - General Adult General Chief complaint: Psychiatric Symptoms Stated complaint: Anxiety, hearing voices Time Seen by Provider: 03/05/25 16:05 Source: patient, RN notes reviewed and break and load operator Mode of arrival: ambulatory Limitations: language barrier History of Present Illness ED Provider: Betty Webb PA-C HPI narrative: This is a 34-year-old Comoran-speaking female, with a past medical history of anxiety and panic disorder, who presents emergency department with concerns of auditory hallucinations. Patient reports that she has a history of anxiety and panic disorder however states that over this last week she has had worsening panic attacks, typically attributed while she is getting behind the wheel. Patient states that she was seen at the [facility] last Tuesday and was prescribed hydroxyzine which he took once however has not taken again as she is concerned for adverse side effects, and has not taken it since. She states that when she gets behind the wheel she gets overwhelmed with anxiety, and when she starts driving she hears voices stating for her to turn around. She states that this is never happened to her before. Denies any new stressors in her life. She denies any SI or HI. No visual hallucinations. She does endorse bright colored urine, and increased vaginal discharge, otherwise denies any fevers, chills, headache, blurred vision, double vision, chest pain, shortness of breath, abdominal pain, nausea, vomiting or diarrhea. Denies any other complaints or concerns at this time. MD complaint: Auditory hallucinations, anxiety, panic attacks Radiation: non-radiation Pain Consistency: constant Relieving factors: none Exacerbating factors: none Associated symptoms: denies other symptoms Treatments prior to arrival: none Related Data Previous Rx's ?Medication ?Instructions ?Recorded ciprofloxacin HCl 500 mg tablet 500 mg PO Q12H 3 days #6 tabs 04/28/20 phenazopyridine 100 mg tablet 100 mg PO TID 6 doses #6 tabs 04/28/20 (Pyridium) amoxicillin 875 mg-potassium 1 tab PO Q12H 10 days #20 tabs 06/12/22 clavulanate 125 mg tablet ferrous sulfate 325 mg (65 mg 325 mg PO DAILY #30 tabs 07/25/22 iron) tablet metronidazole 500 mg tablet 500 mg PO BID 7 days #14 tabs 07/30/22 cefdinir 300 mg capsule 300 mg PO BID 7 days #14 caps 01/13/23 ondansetron 4 mg disintegrating 4 mg PO Q8H 3 days #9 tabs 01/13/23 tablet cefuroxime axetil 250 mg tablet 250 mg PO BID 7 days #13 tabs 05/28/23 phenazopyridine 100 mg tablet 100 mg PO TID PRN pain 6 doses #6 05/28/23 (Pyridium) tabs metronidazole 500 mg tablet 500 mg PO BID #10 tabs 03/05/25 Allergies Allergy/AdvReac Type Severity Reaction Status Date / Time No Known Allergies Allergy Verified 03/05/25 12:33 Review of Systems Review of Systems: Yes all other systems are reviewed and are negative Constitutional: Constitutional: Reports as per [facility] Past Medical History Medical History No known health problems Social History Social History Unable to assess alcohol history related to: Unknown Alcohol intake: never Physical Exam ED Vital Signs: Vital Signs - 24 hr 03/05/25 17:23 03/05/25 20:34 03/05/25 20:45 Temperature 98.2 F 97.9 F 97.9 F Pulse Rate 72 77 77 Respiratory Rate 16 16 16 Blood Pressure 118/69 112/74 112/74 Pulse Oximetry 96 99 99 Oxygen Delivery Method Room Air Room Air Room Air BMI result Body Mass Index 25.3 Const General: cooperative, comfortable and no acute distress Orientation/consciousness: patient oriented x3 Limitations: no limitations [facility] Head: Yes normal to inspection, Yes normocephalic and Yes atraumatic Ears: hearing grossly normal bilaterally General nose exam: Normal external nose present Face and sinus: Yes normal facial exam Mouth: Normal oral and palatal mucosa present, oropharynx normal and moist mucous membranes Throat: Yes posterior oropharynx normal Eyes General: appearance normal, both eyes and all related structures Eyelids: Yes eyelids normal Conjunctivae: conjunctivae normal Sclerae: sclerae normal Pupils: Equal, round and reactive pupils present EOM: EOMs intact bilaterally Neck Neck: Yes normal visual inspection, Yes full ROM and Yes no lymphadenopathy Lymphatic: no lymphadenopathy noted Chest Chest palpation & inspection: normal inspection of the chest Resp Effort & Inspection: normal respiratory effort and able to speak in complete sentences Auscultation: clear to auscultation bilaterally, no crackles, no rales, no rhonchi and no wheezes Cardio Rate: regular rate Rhythm: regular rhythm Heart sounds: S1 normal heart sound present and S2 normal heart sound present GI Inspection: Yes normal to inspection Other: Pelvic examination performed with Francesca Johnson, mechanical sound technician present at all times. No abnormal vaginal discharge seen in the vaginal vault. No cervical motion tenderness. No external lesions. General: Yes Bimanual renal exam normal bilaterally External Female Exam: normal external appearance Speculum Exam - Vagina: normal appearance of the vagina Speculum Exam - Cervix: normal appearance of the cervix Skin General skin exam: no rashes or lesions noted Trauma: no lacerations or abrasions Wounds: no wounds Neuro General: patient oriented x3 and moves all extremities Cranial nerves: Yes Equal, round and reactive pupils present Extrem General: Yes normal to inspection Right upper extremity: normal to inspection Left upper extremity: normal to inspection Right lower extremity: normal to inspection Left lower extremity: normal to inspection Course Course Course Narrative: RME: 34-year-old female presents to ED for auditory hallucinations that has been occurred for the past 2 weeks. Auditory hallucinations telling patient informed not be able to see your case. Patient denies any suicidal homicidal ideation. Labs care team consult placed. Reevaluation(s) Reevaluation #1: 8:08 PM 03/05/2025 (Scottie SMITH): Patient was signed out to this provider at shift change. In summary the patient is a 34-year-old female who suffers from anxiety presenting to the ED for evaluation of multiple complaints including intrusive thoughts which were thought to be auditory hallucinations, as well as irregular vaginal discharge. The patient was seen by crisis and cleared psychiatrically for discharge, patient underwent pelvic exam by initial provider which was unremarkable. Due to the reported new onset intrusive thoughts/hallucinations the patient was sent for CT head, TSH, and urinalysis/UDS which were pending at time of sign-out. At this time the patient's CT head, TSH, urinalysis, and UDS have resulted and are negative. The patient's wet prep has also resulted and shows positive for bacterial vaginosis, we will treat with Flagyl. Patient reports feeling well, is asking to eat, patient will be discharged with Flagyl and instructions to follow up with her PCP and as directed by crisis. Medications Administered Discontinued Medications Generic Name Dose Route Start Last Admin Trade Name Donte PRN Reason Stop Dose Admin Metronidazole 500 mg 03/05/25 20:20 03/05/25 20:42 Metronidazole 500 Mg Tablet PO 03/05/25 20:21 500 mg ONCE ONE Administration Medical Decision Making Medical Decision Making [facility] Narrative: This is a 34-year-old female, with a history of anxiety and panic disorder, who presents emergency department with concerns of increasing anxiety, and auditory hallucinations. On arrival, patient mildly hypertensive at 145/85, all other vital signs within normal limits. She is speaking in full sentences under no acute distress. Patient has no known history of auditory hallucinations. Denies any precipitating stress event. Labs were obtained prior to my evaluation, she has no leukocytosis, microcytic anemia with an H&H of 10.5/34.4, she does have a history of anemia which she is being followed for. Chemistry with no significant electrolyte derangement. Denies any alcohol or drug use. Course: Given that this patient has never had an episode of auditory hallucinations, will obtain CT head. Also expressing concerns for increased vaginal discharge. She is sexually active, no concerns for sexually transmitted infections. She will meet with the care team. 6:49 PM 03/05/2025 (Betty Webb PA-C): Patient met with the care team, these are intrusive thoughts not true auditory hallucinations. We will perform pelvic examination, and obtain urinalysis TSH and head CT to ensure no acute findings. Sign-out given to my colleague Ronak Zavala PA-C pending CT head, UA, U tox, and TSH. Differential Diagnosis Differential Diagnoses: The differential diagnosis associated with the presentation includes Auditory hallucinations, psychosis, brain mass, electrolyte derangement, anxiety, panic disorder Admission/Observation Consideration of admission/observation: Escalation of care including admission/observation considered Lab Data [facility] Lab Attestation statement: I reviewed the patient's lab results. See MDM and course 03/05/25 14:30 03/05/25 14:30 Labs: Lab Results 03/05/25 03/05/25 03/05/25 Range/Units 14:30 18:26 19:01 WBC 8.2 (4.8-10.8) X10*3/uL RBC 5.03 (4.20-5.50) X10*6/uL Hgb 10.5 L (12.0-16.0) g/dl Hct 34.4 L (37.0-47.0) % MCV 68.4 L (80.0-98.0) fL MCH 20.9 L (27.0-33.0) pg MCHC 30.5 L (31.0-35.0) g/dl RDW 17.1 H (11.0-16.0) % Plt Count 441 H (160-400) X10*3/uL MPV 10.2 (9.4-12.3) fL Immature Gran % (Auto) 0.4 (0.0-0.4) % Neut % (Auto) 67.5 (45-73) % Lymph % (Auto) 25.7 (20-40) % [place] % (Auto) 5.4 (2-11) % Eos % (Auto) 0.6 (0-4) % Baso % (Auto) 0.4 (0-2) % Lymph # (Auto) 2.1 (1.2-4.9) X10*3/uL [place] # (Auto) 0.4 (0.1-1.2) X10*3/uL Eos # (Auto) 0.1 (0.0-0.4) X10*3/uL Baso # (Auto) 0.0 (0.0-0.2) X10*3/uL Abs Immat Gran (auto) 0.03 (0.00-0.03) X10*3/uL Absolute Neuts (auto) 5.5 (2.0-8.3) x10*3/uL Absolute Nucleated RBC 0.000 (0.0-0.012) X10*3/uL Nucleated RBC % (auto) 0.0 (0.0-0.2) /100WBC Sodium 140 (135-145) mmol/L Potassium 3.9 (3.3-5.1) mmol/L Chloride 105 (96-108) mmol/L Carbon Dioxide 25 (22-29) mmol/L Anion Gap 14 (12-20) BUN 9 (9-16) mg/dL Creatinine 0.66 (0.5-1.4) mg/dL Estim Creat Clear Calc 114.9 Estimated GFR > 60 Random Glucose 94 (60-115) mg/dL Calcium 9.8 D (8.4-10.2) mg/dL Total Bilirubin 0.6 (0.0-1.0) mg/dL AST 22 (5-31) U/L ALT 21 (0-31) U/L Alkaline Phosphatase 63 (39-117) U/L Total Protein 8.6 H (6.5-8.0) g/dL Albumin 4.7 (3.5-5.0) g/dL TSH 0.43 (0.32-4.0) uIU/mL Beta HCG, Quant < 2 mIU/mL Urine Color Yellow Urine Appearance Clear Urine pH 6.5 (5.0-9.0) Ur Specific [place] 1.025 (1.005-1.025) Urine Protein Trace (Neg-Trace) mg/dL Urine Glucose (UA) Negative (Negative) mg/dL Urine Ketones 80 (Negative) mg/dL Urine Blood Trace H (Negative) Urine Nitrite Negative (Negative) Ur Leukocyte Esterase Negative (Negative) Urine RBC 0-2 (0-2) /HPF Urine WBC 0-5 (0-5) /HPF Ur Squamous Epith Cells 0-2 (0-2) /HPF Urine Bacteria None Seen (None Seen) Hyaline Casts 0-2 (0-2) /LPF Urine Opiates Screen Not Detected (Not Detect) Ur Buprenorphine Scrn Not Detected (Not Detect) ng/mL Ur Oxycodone Screen Not Detected (Not Detect) ng/mL Urine Methadone Screen Not Detected (Not Detect) ng/mL Urine Fentanyl Screen Not Detected (Not Detect) Ur Barbiturates Screen Not Detected (Not Detect) Ur Phencyclidine Scrn Not Detected (Not Detect) Ur Amphetamines Screen Not Detected (Not Detect) U Benzodiazepines Scrn Not Detected (Not Detect) Urine Cocaine Screen Not Detected (Not Detect) U Marijuana (THC) Screen Not Detected (Not Detect) Ethyl Alcohol < 10 mg/dL Chlam trachomat DNA PCR NOT DETECTED (Not Detect.) N.gonorrhoeae DNA (PCR) NOT DETECTED (Not Detect.) T. vaginalis (PCR) NOT DETECTED (Not Detect) Bact vaginosis (PCR) POSITIVE A (Negative) C. krusei/glabrata (PCR) NOT DETECTED (Not Detect) Rebecca group (PCR) NOT DETECTED (Not Detect) Discharge Plan Discharge Clinical Impression: Acute anxiety, Bacterial vaginosis Patient Disposition: Home, Self-Care Instructions: Bacterial Vaginosis (ED), Panic Disorder (ED), Anxiety (ED) Additional Instructions: Thank you for choosing [facility]'s Emergency Department for your care today. At this time there is no indication for admission to the hospital or continued ED observation, and it is safe to discharge you home. Thankfully your CT head, laboratory evaluation, urinalysis, and toxicology workup today showed no evidence of an acute emergent process requiring admission. Your pelvic exam results did test positive for bacterial vaginosis, this is not an STI, this is a bacterial overgrowth which will be treated with an antibiotic called Flagyl. Please take this as prescribed until it is finished. You were seen by our psychiatric crisis team who feel it is appropriate and safe for you to be discharged home and follow up outpatient regarding your anxiety. Please follow up outpatient as directed by the crisis team. Please continue taking all your other prescribed medications as directed. Please follow up with your primary care physician for re-evaluation, additional management of your symptoms, and continued preventative care. If you do not have a primary care physician, please call the [facility] at [phone] to establish a new primary care physician. While waiting to establish your new primary care physician, you can call our Walk[facility]in [facility] at [phone] for non-emergency needs. Please return to the emergency department if you develop a severe or sudden change in your symptoms, a fever over 100.4 that does not improve with Tylenol or Ibuprofen, recurrent vomiting, or any other new or worsening symptoms or concerns. Prescriptions: New metronidazole 500 mg tablet 500 mg PO BID Qty: 10 0RF No Action ciprofloxacin HCl 500 mg tablet 500 mg PO Q12H 3 Days Qty: 6 0RF phenazopyridine [Pyridium] 100 mg tablet 100 mg PO TID Qty: 6 0RF amoxicillin-pot clavulanate 875-125 mg tablet 1 tab PO Q12H 10 Days Qty: 20 0RF ferrous sulfate 325 mg (65 mg iron) tablet 325 mg PO DAILY Qty: 30 0RF metronidazole 500 mg tablet 500 mg PO BID 7 Days Qty: 14 0RF ondansetron 4 mg tablet,disintegrating 4 mg PO Q8H 3 Days Qty: 9 0RF cefdinir 300 mg capsule 300 mg PO BID 7 Days Qty: 14 0RF phenazopyridine [Pyridium] 100 mg tablet 100 mg PO TID PRN (Reason: pain) Qty: 6 0RF cefuroxime axetil 250 mg tablet 250 mg PO BID 7 Days Qty: 13 0RF Referrals: Ansley Foster MD [Primary Care Provider, Internal Medicine] Clinical Impression: Acute anxiety Interventions: [place]-Suicide Risk Severity Scale Last Done: 03/05/25 18:46 ED Discharge Assessment Last Done: 03/05/25 20:45 Discharge Date/Time: 03/05/25 20:45 Print Language: Comoran
[2025-03-05 14:35] LABS: MANUAL DIFF FLAG NO
[2025-03-05 14:39] LABS: Hematocrit 34.4 % (37.0-47.0); Hemoglobin 10.5 g/dl (12.0-16.0); Imm Gran Abs Auto 0.03 X10*3/uL (0.00-0.03); Imm Gran Pct Auto 0.4 % (0.0-0.4); Lymphocytes Absolute Auto 2.1 X10*3/uL (1.2-4.9); Mean Corpuscular HGB Conc 30.5 g/dl (31.0-35.0); Mean Corpuscular Hemoglobin 20.9 pg (27.0-33.0); Mean Corpuscular Volume 68.4 fL (80.0-98.0); NRBC Abs Auto 0.000 X10*3/uL (0.0-0.012); NRBC Pct Auto 0.0 /100WBC (0.0-0.2); Platelet Count 441 X10*3/uL (160-400); Red Blood Count 5.03 X10*6/uL (4.20-5.50); White Blood Count 8.2 X10*3/uL (4.8-10.8)
[2025-03-05 14:58] LABS: Alanine Aminotransferase 21 U/L (0-31); Albumin Level 4.7 g/dL (3.5-5.0); Alkaline Phosphatase 63 U/L (39-117); Anion Gap 14 (12-20); Aspartate Amino Transferase 22 U/L (5-31); Blood Urea Nitrogen 9 mg/dL (9-16); Calcium 9.8 mg/dL (8.4-10.2); Carbon Dioxide 25 mmol/L (22-29); Chloride 105 mmol/L (96-108); Creatinine Clr Calc Pharmacy 114.9; Estimated Glomerular Filt Rate > 60; Potassium 3.9 mmol/L (3.3-5.1); Sodium 140 mmol/L (135-145); Total Protein 8.6 g/dL (6.5-8.0)
--- OUTSIDE RECORDS SUMMARY | 2025-03-05 16:46 | XMS_ITS | Patient Health Record ---
Author Organization [facility] Address [address] [id number] Care Team Providers Care Quality Systems Specialist Name Role Phone CASSIDYLAI Mccullough Unavailable [phone] JIMMYMARITZA Marte Unavailable [phone] Isha Gil Unavailable [phone] Allergies No Known Allergies Results Component Value [...] e given by Tyler Berry RN, Student MENTAL HEALTH AIDE HPV 9 IM Intramuscular 08/22/2023 Administered Social History Sex Assigned At : Social History Observation Description Sex Assigned At Female Problems Problem Type SNOMED Code ICD Code Onset Dates Problem Status W/U Status Risk Notes Problem Chronic uterine inflammatory disease (167158281) Chronic inflammatory disease of uterus (N71.1) Active confirmed Problem Endometrial hyperplasia (836671555) Endometrial hyperplasia, unspecified (N85.00) Active confirmed Problem Irregular menstruation (71126348) Irregular menstruation, unspecified (N92.6) Active confirmed Problem Menstrual disorder (503898943) Irregular menses (N92.6) Active confirmed Vital Signs Blood pressure diastolic 76 mm Hg 09/19/2024 Height 5'2 in 09/19/2024 Blood pressure systolic 128 mm Hg 09/19/2024 Weight 153.4 lbs 09/19/2024 BMI 28.05 kg/m2 09/19/2024 Encounters Encounter Location Date Provider Diagnosis [facility] [address] [place], [place] [id number] 09/19/2024 LAI MARCANO Encounter for screening for [...] procedures Communication of test results Established Patient: [id number] 20 Minutes Plan Of Treatment No Information Insurance Providers Payer Name Payer Address Payer Phone Subscriber Number Group Number Insured Name Patient Relationship to Insured Coverage Start Date Coverage End Date [place] MEDICAID ATT CLAIMS [address] [place] [address] [phone] [id number] Melanie Calloway Self - patient is the insured Medical (General) History Medical History History ICD Code Anxiety Anemia Pelvic u/s 10/2023 with thickened endomtr ium, emb collected 01/11/24 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
[2025-03-05 17:23] VITALS: BP 118/69; PULSE 72; RESP 16; TEMP 36.8; O2SAT 96
[2025-03-05 18:34] LABS: Appearance Urine Clear; Glucose Urine UA Negative (Negative); PH 6.5 (5.0-9.0); Specific Gravity - Urine 1.025 (1.005-1.025); UMIC TRIGGER UACC YES
[2025-03-05 18:46] LABS: Thyroid Stimulating Hormone 0.43 uIU/mL (0.32-4.0)
[2025-03-05 19:05] LABS: Cannabinoid Screen Urine Not Detected (Not Detect)
--- NOTE | 2025-03-05 19:07 | PC.NURSE ---
this rn removed pt belongings from [facility], belongings given to pt at this time, pt cleared by care team per leydi hurtado
[2025-03-05 20:08] LABS: Bacterial Vaginosis PCR POSITIVE (Negative); Candida Group PCR NOT DETECTED (Not Detect); Candida glab krusei PCR NOT DETECTED (Not Detect); Trichomonas vaginalis PCR NOT DETECTED (Not Detect)
[2025-03-05 20:34] VITALS: BP 112/74; PULSE 77; RESP 16; TEMP 36.6; O2SAT 99
[2025-03-05 20:38] LABS: CT PCR NOT DETECTED (Not Detect.); NG PCR NOT DETECTED (Not Detect.)
[2025-03-05 20:45] VITALS: BP 112/74; PULSE 77; RESP 16; TEMP 36.6; O2SAT 99
== END 2025-03-05 20:45 | disposition home or self-care (01) ==
PROVIDERS: Physician Assistant; Physician Assistant Medical; Emergency Provider Emergency Medicine; PCP Student in an Organized Health Care Education/Training Program
DX: F41.9 Anxiety disorder, unspecified (principal); R44.0 Auditory hallucinations; F41.0 Panic disorder [episodic paroxysmal anxiety]; I10 Essential (primary) hypertension; N76.0 Acute vaginitis
CPT/HCPCS: 36415; 70450; 80053; 80307; 81001; 81515; 84443; 84702; 85025; 87491; 87591; 99285; S9485

== ENCOUNTER → 2025-03-05 17:21 | Outpatient (BNV) | payer MEDICAID, SELFPAY | PROVIDERS: Emergency Provider Emergency Medicine; PCP Student in an Organized Health Care Education/Training Program; Visit Provider Student in an Organized Health Care Education/Training Program | DX: R44.0 Auditory hallucinations (principal) | CPT/HCPCS: 70450 ==

== ENCOUNTER 2025-04-19 15:19 | Emergency (ER) | payer MEDICAID, SELFPAY ==
--- NOTE | 2025-04-19 | ECG_ITS ---
Test Reason : CP Blood Pressure : */* mmHG Vent. Rate : 81 BPM Atrial Rate : 81 BPM P-R Int : 150 ms QRS Dur : 76 ms QT Int : 394 ms P-R-T Axes : 40 14 38 degrees QTcB Int : 457 ms Normal sinus rhythm Possible Left atrial enlargement Borderline ECG When compared with ECG of 04-Mar-2025 13:43, No significant change was found Referred By: Generic ED Physician Electronically Signed By: PEGGY UNDERWOOD MD
--- NOTE | ~2025-04-19 | XR_ITS ---
EXAMINATION: XR CHEST CLINICAL INFORMATION: CP COMPARISON: None available. TECHNIQUE: 2 views of the chest were obtained. FINDINGS: No significant abnormality is noted involving the heart, lungs, mediastinum, bony thorax or soft tissues. XR/XR chest 2V IMPRESSION: No acute disease Electronically signed by: Sebastian Mattson MD 04/19/2025 04:27 PM EDT RP
[2025-04-19 16:06] VITALS: BP 128/67; PULSE 75; RESP 16; TEMP 36.6; O2SAT 100; BMI 24.6
--- NOTE | 2025-04-19 16:09 | ED.CHESTPAIN ---
HPI - Chest Pain General Chief Complaint: Chest Pain Stated Complaint: Chest pain Time Seen by Provider: 04/19/25 19:59 Source: patient Mode of arrival: ambulatory Limitations: no limitations History of Present Illness ED Provider: DR. Hawley HPI narrative: 35-year-old female came in for evaluation of mid chest/epigastric pain started at 10:00 while she was carrying a heavy box at work today, pain is localized to the mid chest, increased with deep breath, no obvious head injury or pulled muscle, no recent travel, no recent prolonged immobilization, no lower extremity swelling or tenderness, no history of HTN/DM/HLD, no history of smoking, no family history of ACS or at young age. Related Data Previous Rx's ?Medication ?Instructions ?Recorded ciprofloxacin HCl 500 mg tablet 500 mg PO Q12H 3 days #6 tabs 04/28/20 phenazopyridine 100 mg tablet 100 mg PO TID 6 doses #6 tabs 04/28/20 (Pyridium) amoxicillin 875 mg-potassium 1 tab PO Q12H 10 days #20 tabs 06/12/22 clavulanate 125 mg tablet ferrous sulfate 325 mg (65 mg 325 mg PO DAILY #30 tabs 07/25/22 iron) tablet metronidazole 500 mg tablet 500 mg PO BID 7 days #14 tabs 07/30/22 cefdinir 300 mg capsule 300 mg PO BID 7 days #14 caps 01/13/23 ondansetron 4 mg disintegrating 4 mg PO Q8H 3 days #9 tabs 01/13/23 tablet cefuroxime axetil 250 mg tablet 250 mg PO BID 7 days #13 tabs 05/28/23 phenazopyridine 100 mg tablet 100 mg PO TID PRN pain 6 doses #6 05/28/23 (Pyridium) tabs metronidazole 500 mg tablet 500 mg PO BID #10 tabs 03/05/25 Allergies Allergy/AdvReac Type Severity Reaction Status Date / Time No Known Allergies Allergy Verified 04/19/25 16:06 Review of Systems Review of Systems: All other systems are reviewed and are negative Constitutional: Reports as per HPI and Reports no additional constitutional complaints Eyes: Reports as per HPI and Reports no additional eye complaints Reports system reviewed and no additional complaints, except as documented Cardiovascular: Reports as per HPI and Reports no additional cardiovascular complaints Respiratory: Reports as per HPI and Reports no additional respiratory complaints Gastrointestinal: Reports as per HPI and Reports no additional gastrointestinal complaints Genitourinary: Reports no additional female genitourinary complaints Musculoskeletal: Reports no additional musculoskeletal complaints Skin/Breast: Reports system reviewed and no additional complaints, except as docu Psychiatric: Reports no additional psychiatric complaints Endocrine: Reports no additional endocrine complaints Hematologic/Lymphatic: Reports no additional hematologic/lymphatic complaints Allergic/Immunologic: Reports no additional allergic/immunologic complaints Reports system reviewed and no additional complaints, except as documented and Reports Abnormal speech present ON LICENSE OF [facility] Past Medical History Medical History No known health problems Social History Social History Alcohol intake: never Smoked in Last 30 Days: No Use of substances other than those prescribed or required for medical reasons: No Advance Directives: No Advance Directives Information Provided: No Physical Exam Vital Signs: Vital Signs: Last Vital Signs Temp 0 F L 04/19/25 21:15 Pulse 86 04/19/25 21:15 Resp 16 04/19/25 21:15 BP 136/86 04/19/25 21:15 Pulse Ox 100 04/19/25 21:15 O2 Del Method Room Air 04/19/25 21:15 BMI result Body Mass Index 24.6 Vital signs have been reviewed and appear to be correct. Blood pressure elevated. Heart rate normal. Respiratory rate normal. Temperature normal. Oxygen saturation normal. Appearance: Alert. Oriented X3. No acute distress. Head: Normal external exam. Normocephalic. Atraumatic. No Christina signs noted. No raccoon eyes noted Eyes: PERRLA. EOMI. Conjunctiva and sclera normal. Eyelids normal. ENT: TM's Normal. Pharynx normal. Uvula midline. Moist mucous membranes. No trismus noted. No drooling noted. No muffled voice noted. Neck: Normal inspection. Neck supple. FROM. No adenopathy. Thyroid Normal. No meningeal signs. No neck mass noted. CVS: Normal heart rate and rhythm. Heart sound normal. No murmurs noted. Pulses normal throughout. Respiratory: No respiratory distress. Painless inspiration. Breath sounds normal. No wheezes/rales/rhonchi noted. Chest nontender. No accessory muscle usage noted or decreased air movement noted. Abdomen: Soft and nontender. Bowel sounds normal in all 4 quadrants. No distention noted. No organomegaly noted. No visible injury noted. Back: No CVA tenderness. Full range of motion noted. Skin: Skin warm and dry. Normal skin color. Normal skin turgor. No rashes/lesions/lacerations noted. Extremities: No lower extremity edema. Extremities exhibit normal range of motion. Extremities nontender. Neuro: Oriented X 3. Cranial nerve exam: II-XII are grossly intact No motor deficit. No sensory deficit. Reflexes normal. Course Course Course Narrative: This is an RME: Additional HPI, ROS, PE not included below will be deferred to primary provider. RME assessment and note performed by: Betty Webb PA-C This is a 35-year-old female who presents emergency department with concerns of chest pain which started at work. She was lifting a box and unsure if this is what caused her to have these symptoms. Denies any medical problems, no shortness for breath, nausea, vomiting or diarrhea. Pain is not worsening, pain is a worse when taking a deep breath. Plan: Labs, chest x-ray, EKG Reevaluation(s) Reevaluation #1: Chest pain started at 10:00 while carrying a heavy box at work. 1. EKG/troponin x2 raise no concern of ACS. 2. Negative D-dimer and low risk for pulmonary embolism making pulmonary embolism is unlikely. 3. Chest x-ray is showing no acute intrathoracic pathology. Time: 21:30 Medical Decision Making Differential Diagnosis Differential Diagnoses: The differential diagnosis associated with the presentation includes (Pneumonia, pneumothorax, pleural effusion, pulmonary embolism, ACS, chest wall pain, costochondritis, pulled muscle, electrolyte derangement, severe anemia.) Admission/Observation Consideration of admission/observation: Escalation of care including admission/observation considered Lab Data MDM Lab Attestation statement: I reviewed the patient's lab results. 04/19/25 17:07 04/19/25 17:07 Labs: Lab Results 04/19/25 04/19/25 Range/Units 17:07 20:06 WBC 11.5 H (4.8-10.8) X10*3/uL RBC 4.74 (4.20-5.50) X10*6/uL Hgb 10.4 L (12.0-16.0) g/dl Hct 34.1 L (37.0-47.0) % MCV 71.9 L (80.0-98.0) fL MCH 21.9 L (27.0-33.0) pg MCHC 30.5 L (31.0-35.0) g/dl RDW 18.6 H (11.0-16.0) % Plt Count 309 D (160-400) X10*3/uL MPV 9.6 (9.4-12.3) fL Immature Gran % (Auto) 0.3 (0.0-0.4) % Neut % (Auto) 76.2 H (45-73) % Lymph % (Auto) 16.0 L (20-40) % [place] % (Auto) 5.5 (2-11) % Eos % (Auto) 1.6 (0-4) % Baso % (Auto) 0.4 (0-2) % Lymph # (Auto) 1.8 (1.2-4.9) X10*3/uL [place] # (Auto) 0.6 (0.1-1.2) X10*3/uL Eos # (Auto) 0.2 (0.0-0.4) X10*3/uL Baso # (Auto) 0.1 (0.0-0.2) X10*3/uL Abs Immat Gran (auto) 0.04 H (0.00-0.03) X10*3/uL Absolute Neuts (auto) 8.7 H (2.0-8.3) x10*3/uL Absolute Nucleated RBC 0.000 (0.0-0.012) X10*3/uL Nucleated RBC % (auto) 0.0 (0.0-0.2) /100WBC D-Dimer High Sensitivty < 150 NG/ML Sodium 141 (135-145) mmol/L Potassium 4.0 (3.3-5.1) mmol/L Chloride 107 (96-108) mmol/L Carbon Dioxide 28 (22-29) mmol/L Anion Gap 10 L (12-20) BUN 16 (9-16) mg/dL Creatinine 0.60 (0.5-1.4) mg/dL Estim Creat Clear Calc 115.5 Estimated GFR > 60 Random Glucose 99 (60-115) mg/dL Calcium 10.0 (8.4-10.2) mg/dL Magnesium 2.2 (1.6-2.6) mg/dL Total Bilirubin 0.2 (0.0-1.0) mg/dL Direct Bilirubin < 0.2 (0.0-0.5) mg/dL AST 26 (5-31) U/L ALT 19 (0-31) U/L Alkaline Phosphatase 62 (39-117) U/L Troponin I High Sens < 2.7 < 2.7 (<3.5-17.0) ng/L Total Protein 8.2 H (6.5-8.0) g/dL Albumin 4.7 (3.5-5.0) g/dL Beta HCG, Quant < 2 mIU/mL Independent Interpretation I performed an independent interpretation of an: Plain X-Ray (Chest: No acute disease) Radiology Impression Discussion of test interpretation with radiology: I have reviewed the radiologist's reading. Scores Heart Score History: -0- slightly suspicious ECG: -0- normal Age: -0- < or = 45 Risk factory: -0- no risk factors known Troponin: -0- < or = normal limit Score: 0 Risk: 1.7% Discharge Plan Discharge Clinical Impression: Atypical chest pain, Anterior chest wall pain Patient Disposition: Home, Self-Care Instructions: Chest Wall Pain (ED) Prescriptions: No Action ciprofloxacin HCl 500 mg tablet 500 mg PO Q12H 3 Days Qty: 6 0RF phenazopyridine [Pyridium] 100 mg tablet 100 mg PO TID Qty: 6 0RF amoxicillin-pot clavulanate 875-125 mg tablet 1 tab PO Q12H 10 Days Qty: 20 0RF ferrous sulfate 325 mg (65 mg iron) tablet 325 mg PO DAILY Qty: 30 0RF metronidazole 500 mg tablet 500 mg PO BID 7 Days Qty: 14 0RF metronidazole 500 mg tablet 500 mg PO BID Qty: 10 0RF ondansetron 4 mg tablet,disintegrating 4 mg PO Q8H 3 Days Qty: 9 0RF cefdinir 300 mg capsule 300 mg PO BID 7 Days Qty: 14 0RF phenazopyridine [Pyridium] 100 mg tablet 100 mg PO TID PRN (Reason: pain) Qty: 6 0RF cefuroxime axetil 250 mg tablet 250 mg PO BID 7 Days Qty: 13 0RF Referrals: Ansley Foster MD [Primary Care Provider, Internal Medicine] Interventions: ED Discharge Assessment Last Done: 04/19/25 21:15 Discharge Date/Time: 04/19/25 21:15 Print Language: Togolese
[2025-04-19 17:12] LABS: Hematocrit 34.1 % (37.0-47.0); Hemoglobin 10.4 g/dl (12.0-16.0); Imm Gran Abs Auto 0.04 X10*3/uL (0.00-0.03); Imm Gran Pct Auto 0.3 % (0.0-0.4); Lymphocytes Absolute Auto 1.8 X10*3/uL (1.2-4.9); MANUAL DIFF FLAG NO; Mean Corpuscular HGB Conc 30.5 g/dl (31.0-35.0); Mean Corpuscular Hemoglobin 21.9 pg (27.0-33.0); Mean Corpuscular Volume 71.9 fL (80.0-98.0); NRBC Abs Auto 0.000 X10*3/uL (0.0-0.012); NRBC Pct Auto 0.0 /100WBC (0.0-0.2); Platelet Count 309 X10*3/uL (160-400); Red Blood Count 4.74 X10*6/uL (4.20-5.50); White Blood Count 11.5 X10*3/uL (4.8-10.8)
[2025-04-19 17:56] LABS: Alanine Aminotransferase 19 U/L (0-31); Albumin Level 4.7 g/dL (3.5-5.0); Alkaline Phosphatase 62 U/L (39-117); Anion Gap 10 (12-20); Aspartate Amino Transferase 26 U/L (5-31); Blood Urea Nitrogen 16 mg/dL (9-16); Calcium 10.0 mg/dL (8.4-10.2); Carbon Dioxide 28 mmol/L (22-29); Chloride 107 mmol/L (96-108); Creatinine Clr Calc Pharmacy 115.5; Estimated Glomerular Filt Rate > 60; Magnesium 2.2 mg/dL (1.6-2.6); Potassium 4.0 mmol/L (3.3-5.1); Sodium 141 mmol/L (135-145); Total Protein 8.2 g/dL (6.5-8.0); Troponin-I High Sensitivity < 2.7 ng/L (<3.5-17.0)
[2025-04-19 20:21] LABS: D Dimer High Sensitivity < 150 NG/ML
[2025-04-19 20:35] LABS: Troponin-I High Sensitivity < 2.7 ng/L (<3.5-17.0)
[2025-04-19 21:14] VITALS: BP 136/86; PULSE 86; RESP 16; O2SAT 100
[2025-04-19 21:15] VITALS: BP 136/86; PULSE 86; RESP 16; TEMP -17.7; TEMP 0; O2SAT 100
== END 2025-04-19 21:15 | disposition home or self-care (01) ==
PROVIDERS: Physician Assistant Medical; Emergency Provider Emergency Medicine; PCP Student in an Organized Health Care Education/Training Program
DX: R07.89 Other chest pain (principal); X50.0XXA Overexertion from strenuous movement or load, initial encounter; Y93.89 Activity, other specified; Y92.69 Other specified industrial and construction area as the place of occurrence of the external cause; Y99.8 Other external cause status
CPT/HCPCS: 36415; 71046; 80048; 80076; 83735; 84484; 84702; 85025; 85379; 93005; 99283; 99285

== ENCOUNTER → 2025-04-19 15:31 | Outpatient (BNV) | payer MEDICAID, SELFPAY | PROVIDERS: Emergency Provider Emergency Medicine; PCP Student in an Organized Health Care Education/Training Program; Visit Provider Internal Medicine Cardiovascular Disease | DX: R07.89 Other chest pain (principal) | CPT/HCPCS: 93010 ==

== ENCOUNTER → 2025-04-19 16:09 | Outpatient (BNV) | payer MEDICAID, SELFPAY | PROVIDERS: PCP Student in an Organized Health Care Education/Training Program; Visit Provider Radiology Diagnostic Ultrasound | DX: R07.9 Chest pain, unspecified (principal) | CPT/HCPCS: 71046 ==

== ENCOUNTER 2025-06-08 09:37 | Emergency (ER) | payer MEDICAID, SELFPAY ==
--- OUTSIDE RECORDS SUMMARY | 2024-06-06 09:30 | XMS_ITS ---
Author Organization [facility] Address [address] [place] [address] Care Team Providers Care Baby Formula Mixer Name Role Phone MARITZA MARQUEZ Unavailable [phone] REASON FOR VISIT Routine Testing Social History Sex Assigned At : Social History Observation Description Sex Assigned At Female Encounters Encounter Location Date Provider Diagnosis [facility] [address] [place], [place] [phone] AMRITZA MARQUEZ Plan Of Treatment No Information Progress Notes * Melanie SIERRA MDOB: [birth year] (35 yo F)Acc No.[id number]:06/06/2024 Progress Notes Patient: Sania Melanie álvarez Provider: Rom MARQUEZ :1990 A ge:34 Y S ex:Female Date:06/06/2024 Address:[address] [place], [place] [phone] Subjective: * Chief Complaints: * R outine Testing * Electronic signature of CLAUDE MARQUEZ CNM on 06/08/2025 at 10:18 AM EST Sign off status: Pending * Provider: Rom MARQUEZ Date: 08/06/2023 Generated for Anatoliy young/Bob/Timitting on: 08/08/2024 10:18 AM EST
--- OUTSIDE RECORDS SUMMARY | 2024-06-15 05:00 | XMS_ITS ---
Author Organization [facility] Address [address] [place] [address] Care Team Providers Care Loading Inspector Name Role Phone Isha Gil Unavailable [phone] REASON FOR VISIT Infection Screening Social History Sex Assigned At : Social History Observation Description Sex Assigned At Female Encounters Encounter Location Date Provider Diagnosis [facility] [address] [place] [phone] 06/15/2024 Isha Gil Plan Of Treatment No Information Progress Notes * Melanie SIERRA MDOB: [birth year] (35 yo F)Acc No.[id number]:06/15/2024 Progress Notes Patient: Sania álvarez Dredavonte Castellanos Provider: SANIA Mazariegos :1990 A ge:34 Y S ex:Female Date:06/15/2024 Address:[address] [place], [place] [id number] Subjective: * Chief Complaints: * I nfection Screening * Electronic signature of JAQUI Morales on 06/08/2025 at 10:19 AM EST Sign off status: Pending * Provider: SANIA Mazariegos Date: 08/16/2023 Generated for Anatoliy young/Bob/eTransmitting on: 08/08/2024 10:19 AM EST
[2025-06-08 09:41] VITALS: BP 133/76; PULSE 75; RESP 18; TEMP 36.2; O2SAT 99; BMI 24.9
--- NOTE | 2025-06-08 09:53 | ED_ITS ---
HPI - General Adult General Chief complaint: General Medical Stated complaint: General Medical Time Seen by Provider: 06/08/25 09:47 Source: patient, RN notes reviewed, old records reviewed and ladies' locker room attendant (Rg) Mode of arrival: ambulatory Limitations: language barrier (N[place]ian-speaking) History of Present Illness ED Provider: ENRIKE Schmitz HPI narrative: 25-year-old [place]ian-speaking female with medical history of iron-deficiency anemia, presents to ED due to concerns of blood in stool. Patient states her menstrual period, which began 4 days ago, appeared to stop earlier this morning. She notes that her menstrual pattern sometimes includes 1-2 days without bleeding and then resumes again. Shortly thereafter, she had a bowel movement and noted a few spots of bright red blood on the toilet paper. She did not observe any blood in the toilet bowl, large clots, and none was present on her menstrual pad at that time. She denies any prior episodes of blood in her stool. Patient has a known history of anemia for which iron supplementation was prescribed. She reports discontinuing the prescribed iron pill approximately three weeks ago because it caused significant gastrointestinal discomfort. She has a first hematology appointment scheduled for June. She denies abdominal pain, pelvic pain, nausea, vomiting, chest pain, shortness of breath, fever, chills, dysuria, or urinary frequency. No other associated symptoms. MD complaint: Bright red blood, unsure if menstrual cycle or from rectum Related Data Previous Rx's ?Medication ?Instructions ?Recorded ciprofloxacin HCl 500 mg tablet 500 mg PO Q12H 3 days #6 tabs 04/28/20 phenazopyridine 100 mg tablet 100 mg PO TID 6 doses #6 tabs 04/28/20 (Pyridium) amoxicillin 875 mg-potassium 1 tab PO Q12H 10 days #20 tabs 06/12/22 clavulanate 125 mg tablet ferrous sulfate 325 mg (65 mg 325 mg PO DAILY #30 tabs 07/25/22 iron) tablet metronidazole 500 mg tablet 500 mg PO BID 7 days #14 t abs 07/30/22 cefdinir 300 mg capsule 300 mg PO BID 7 days #14 cap s 01/13/23 ondansetron 4 mg disintegrating 4 mg PO Q8H 3 days #9 tabs 01/13/23 tablet cefuroxime axetil 250 mg tablet 250 mg PO BID 7 days # 13 tabs 05/28/23 phenazopyridine 100 mg tablet 100 mg PO TID PRN pain 6 doses #6 05/28/23 (Pyridium) tabs metronidazole 500 mg tablet 500 mg PO BID #10 tabs Allergies Allergy/AdvReac Type Severity Reaction Status Date / Time No Known Allergies Allergy Verified 06/08/25 09:44 Review of Systems 2 Review of Systems: Yes all other systems are reviewed and are negative [facility] Past Medical History Attestation statement: The following information was validated with the patient. Source: old records reviewed and nursing notes reviewed Medical History No known health problems Social History Social History Alcohol intake: never Advance Directives: No Advance Directives Information Provided: Yes Do you have a plan to hurt others: No Plan Physical Exam ED Vital Signs: Vital Signs - 24 hr 06/08/25 09:41 Temperature 97.1 F Pulse Rate 75 Respiratory Rate 18 Blood Pressure 133/76 Pulse Oximetry 99 Oxygen Delivery Method Room Air BMI result Body Mass Index 24.9 GENERAL APPEARANCE: ?AxOx4, generally well-appearing, no acute distress. HEENT: ?NC, AT. MMM. EOMI, clear conjunctiva, no conjunctival pallor, oropharynx clear. NECK: ?Supple without lymphadenopathy.? No stiffness or restricted ROM. HEART:? Normal rate and regular rhythm, normal S1/S2, no m/r/g LUNGS:? CTAB, moving air well. No crackles or wheezes are heard. ABDOMEN: ?Soft, nontender, nondistended with good bowel sounds heard. BACK: No CVAT, no obvious deformity. EXTREMITIES: ?Without cyanosis, clubbing or edema. : No lesions, vesicles or hemorrhoids noted, no gross blood residue on my finger after exam NEUROLOGICAL: ?Grossly nonfocal. Alert and oriented, moving all 4 extremities. Observed to ambulate with normal gait. Skin: ?Warm and dry without any rash. Medical Decision Making Medical Decision Making MDM Narrative: 25-year-old [place]ian-speaking female with medical history of iron-deficiency anemia, presents to ED due to concerns of blood in stool. Patient has been on her menstrual cycle over the last 4 days, thought her menstrual cycle had finished and noticed a few spots of bright red blood on the tissue paper after having a bowel movement this morning. Denies any physical symptoms. VS on initial observation-BP 133/76, pulse rate is 75, respiratory rate of 18, afebrile with oral temp of 97.1?, O2 saturation 99% on room air. On physical exam patient is very well-appearing, without conjunctival pallor, lungs clear to auscultation bilaterally, cardiac exam reveals normal rate and rhythm without murmurs/rubs/gallops, abdomen is soft, nontender, nondistended, exam without lesions, vesicles, or evidence of external hemorrhoids, no internal masses or hemorrhoids palpated, no daniel blood noted on my finger after exam. Plan: Labs, occult stool Course 10:27- Labs without leukocytosis/leukopenia, stable microcytic anemia with a hemoglobin of 11.8, hematocrit of 37.0, Patient is very well-appearing, with 1 episode of bright red blood on toilet tissue after bowel movement. Patient denies fevers, chills, weight loss, change in stool consistency or caliber, denies constipation or excessive straining. Patient is currently on her menstrual cycle but did not see any blood on her pad this morning making her think the blood was coming rectally. On exam, I did not visualize any lesions, vesicles or external hemorrhoids, I did not palpate any internal hemorrhoids or feel any stool in the rectal vault, or masses. Labs reveal a stable microcytic anemia with a hemoglobin of 11.8, hematocrit of 37.0, no electrolyte abnormalities. Occult stool was negative for blood. I discussed these findings with the patient and discuss this may be an internal hemorrhoid versus menstrual blood that had return after the patient was straining having a bowel movement. I counseled patient to follow up with her carpenter bridge she has an appointment in June for further evaluation. Patient has discontinued the iron supplement that her provider prescribed however is taking an [id number] iron supplement as she states this medication is better for her to tolerate. I encouraged her to follow up with her primary care doctor. Patient well enough to go home for self care today. I counseled patient on strict return precautions. Patient is in agreement with the plan. Differential Diagnosis Differential Diagnoses: The differential diagnosis associated with the presentation includes Menstrual blood Anal fissure Hemorrhoids Rectal mucosal irritation Admission/Observation Consideration of admission/observation: Escalation of care including admission/observation considered Lab Data MDM Lab Attestation statement: I reviewed the patient's lab results. 06/08/25 10:10 06/08/25 10:10 Labs: Lab Results 06/08/25 Range/Units 10:10 WBC 6.3 (4.8-10.8) X10*3/uL RBC 4.84 (4.20-5.50) X10*6/uL Hgb 11.8 L (12.0-16.0) g/dl Hct 37.0 (37.0-47.0) % MCV 76.4 L (80.0-98.0) fL MCH 24.4 L (27.0-33.0) pg MCHC 31.9 (31.0-35.0) g/dl RDW 17.7 H (11.0-16.0) % Plt Count 260 (160-400) X10*3/uL MPV 10.3 (9.4-12.3) fL Immature Gran % (Auto) 0.3 (0.0-0.4) % Neut % (Auto) 63.0 (45-73) % Lymph % (Auto) 26.5 (20-40) % [place] % (Auto) 7.4 (2-11) % Eos % (Auto) 2.2 (0-4) % Baso % (Auto) 0.6 (0-2) % Lymph # (Auto) 1.7 (1.2-4.9) X10*3/uL [place] # (Auto) 0.5 (0.1-1.2) X10*3/uL Eos # (Auto) 0.1 (0.0-0.4) X10*3/uL Baso # (Auto) 0.0 (0.0-0.2) X10*3/uL Abs Immat Gran (auto) 0.02 (0.00-0.03) X10*3/uL Absolute Neuts (auto) 4.0 (2.0-8.3) x10*3/uL Absolute Nucleated RBC 0.000 (0.0-0.012) X10*3/uL Nucleated RBC % (auto) 0.0 (0.0-0.2) /100WBC Sodium 140 (135-145) mmol/L Potassium 3.9 (3.3-5.1) mmol/L Chloride 107 (96-108) mmol/L Carbon Dioxide 27 (22-29) mmol/L Anion Gap 10 L (12-20) BUN 18 H (9-16) mg/dL Creatinine 0.67 (0.5-1.4) mg/dL Estim Creat Clear Calc 103.4 Estimated GFR > 60 Random Glucose 121 H (60-115) mg/dL Calcium 9.3 D (8.4-10.2) mg/dL Magnesium 2.0 (1.6-2.6) mg/dL Total Bilirubin 0.2 (0.0-1.0) mg/dL AST 20 (5-31) U/L ALT 16 (0-31) U/L Alkaline Phosphatase 55 (39-117) U/L Total Protein 7.7 (6.5-8.0) g/dL Albumin 4.4 (3.5-5.0) g/dL Stool Occult Blood NEGATIVE (NEGATIVE) External Record Review External record reviewed: Inpatient record, Office record and Outpatient record Chronic Conditions Patient?s care impacted by: Other (Iron-deficiency anemia) Discharge Plan Discharge Clinical Impression: Menstrual bleeding problem Patient Disposition: Home, Self-Care Additional Instructions: You were evaluated in the emergency department due to blood on the toilet paper after wiping. Your blood work revealed a stable anemia with a hemoglobin of 11.8 which is just mildly low (normal is 12.0), and a normal hematocrit value of 37.0. These values are stable, very mild and do not warrant transfusion. There were no electrolyte abnormalities. A stool sample was sent to the lab which was negative for blood in the stool. Your symptoms may be from an internal hemorrhoid, or possibly be menstrual blood as you are on your menstrual cycle. Please follow up with your carpenter bridge for further management of your anemia. You may want to discuss this with your primary care doctor for further evaluation and management of hemorrhoids if blood on the tissue paper persists after your menstrual cycle is completed. Please return to the emergency department if you experience large amounts of blood in the stool after bowel movement, inability to have a bowel movement, chest pain, difficulty breathing, fevers over 100.4?, abdominal pain, nausea, vomiting or any new/worsening/concerning symptoms. Prescriptions: No Action ciprofloxacin HCl 500 mg tablet 500 mg PO Q12H 3 Days Qty: 6 0RF phenazopyridine [Pyridium] 100 mg tablet 100 mg PO TID Qty: 6 0RF amoxicillin-pot clavulanate 875-125 mg tablet 1 tab PO Q12H 10 Days Qty: 20 0RF ferrous sulfate 325 mg (65 mg iron) tablet 325 mg PO DAILY Qty: 30 0RF metronidazole 500 mg tablet 500 mg PO BID 7 Days Qty: 14 0RF metronidazole 500 mg tablet 500 mg PO BID Qty: 10 0RF ondansetron 4 mg tablet,disintegrating 4 mg PO Q8H 3 Days Qty: 9 0RF cefdinir 300 mg capsule 300 mg PO BID 7 Days Qty: 14 0RF phenazopyridine [Pyridium] 100 mg tablet 100 mg PO TID PRN (Reason: pain) Qty: 6 0RF cefuroxime axetil 250 mg tablet 250 mg PO BID 7 Days Qty: 13 0RF Print Language: [place]
[2025-06-08 10:15] LABS: MANUAL DIFF FLAG NO
[2025-06-08 10:16] LABS: OBS Int Ctl Valid YES; OBS1 NEGATIVE (NEGATIVE)
[2025-06-08 10:17] LABS: Hematocrit 37.0 % (37.0-47.0); Hemoglobin 11.8 g/dl (12.0-16.0); Imm Gran Abs Auto 0.02 X10*3/uL (0.00-0.03); Imm Gran Pct Auto 0.3 % (0.0-0.4); Lymphocytes Absolute Auto 1.7 X10*3/uL (1.2-4.9); Mean Corpuscular HGB Conc 31.9 g/dl (31.0-35.0); Mean Corpuscular Hemoglobin 24.4 pg (27.0-33.0); Mean Corpuscular Volume 76.4 fL (80.0-98.0); NRBC Abs Auto 0.000 X10*3/uL (0.0-0.012); NRBC Pct Auto 0.0 /100WBC (0.0-0.2); Platelet Count 260 X10*3/uL (160-400); Red Blood Count 4.84 X10*6/uL (4.20-5.50); White Blood Count 6.3 X10*3/uL (4.8-10.8)
--- OUTSIDE RECORDS SUMMARY | 2025-06-08 10:19 | XMS_ITS | Clinical Summary ---
Demographics Address [address] [facility] [address] [place] [address] Mobile Phone Home Phone Email Address Email Address m Preferred Language es Marital Status Single Samaritan Affiliation Unknown Race Other Race Ethnic Group Unknown Author Organization [employer] Address [address] [place] [address] 7 [place] [address] Care Team Providers Care Infection Control Coordinator Name Role Phone Ansley Foster MD Primary Care Pro vider Allergies No known active allergies Medications * This document contains information received from the source organization and may not represent a complete record from that organization. Acetaminophen 500 MG capsule Take one to two tablets as needed for fever or pain every 6 hours 30 capsule 4 Active betamethasone, augmented, (Diprolene) 0.05 % ointmentIndicat ions:Allergic contact dermatitis due to cosmetics Apply topically 2 times daily. 15 g 5 Active escitalopram (Lexapro) 10 MG tabletIndicatio ns:Panic disorder Take 1 tablet (10 mg) by mouth Once per day. 30 tablet 2 5 06/27/20 25 Active hydrOXYzine HCl (Atarax) 25 MG tabletIndicatio ns:Panic disorder Take 1 tablet (25 mg) by mouth every 8 (eight) hours if needed for itching. 30 tablet 5 Active ferrous gluconate (Fergon) 324 (38 Fe) MG tabletIndicatio ns:Other iron deficiency anemia Take 1 tab every other day 45 tablet 1 5 Active Ascorbic Acid (vitamin C) 250 MG tablet Take 1 tablet (250 mg) by mouth every other day. 45 tablet 1 5 03/04/20 26 Active Active Problems Problem Noted Date Diagnosed Date Panic disorder 02/27/2025 Assessment & Plan (02/28/2025 2:34 PM EDT): During IBH Consult Heisha presenting with anxiety/worry associated to restlessness and/or [...] diet and exercise,discussed healthy life style -discussed placement assistant referral -referred today Latex allergy 01/12/2023 Depression [...] (03/16/2023 7:41 PM EDT): -PPD neg in 2017 -pap smear 2020 neg per pt in [place] to repeat in 3 y -will repeat in 2023 -vaccines: s/p tdap 2016,s/p covid 19 x3 (brought records) and Bivalent today here, ,HPV vaccine s/p 1st dose at [facility] -pd 2nd in 04/2023 ,hep B not immune-2nd dose today -and 3rd in 5 mo Assessment & Plan (12/08/2022 8:14 PM EDT): -PPD neg in 2017 -pap smear 2020 neg per pt in [place] to repeat in 3 y -will repeat in 2023 -vaccines: s/p tdap 2016,s/p covid 19 x3 including booster w Bivalent -pt to bring record , about HPV never got before-pt is interested -advised to check at vaccine clinic if not able to get to call here ,hep B not immune-start series today Assessment & Plan (11/10/2022 7:50 PM EDT): -pap smear 2020 neg per pt in [place] to repeat in 3 y -will repeat [...] -labs to be done in fasting -will RTC x labs Anemia 03/19/2016 Assessment & Plan [...] Thickened endometrium 11/24/20232023 Hematuria 09/28/2023 02/08/2024 Encounters Date Type Department Care Team Description 06/08/2025 Orders Only GENERIC EXTERNAL DATA DEPARTMENT Provider, Generic External Data 04/19/2025 Orders Only [facility] External Provider, [facility] 04/18/2025 Telephone [facility] [address] [place] [address] Ansley Foster MD Appointment 04/15/2025 Telephone [facility] [address] [place] [address] Ansley Foster MD Appointment Request 04/01/2025 Telephone [facility] [address] [facility] [place] [address] Ansley Foster MD recall Dec from Last 3 Months Immunizations Immunization Administration [...] t he electric, gas, oil or water [email or web address] threatened to shut off services in your [...] Sign Reading Time Taken Comments Blood Pressure 122/87 03/06/2025 10:25 AM EDT Pulse 88 03/06/2025 10:25 AM EDT Temperature 36.7 C (98.1 F) 03/06/2025 10:25 AM EDT Respiratory Rate 14 03/06/2025 10:25 AM EDT Oxygen Saturation 98% 03/06/2025 10:25 AM EDT Inhaled Oxygen Concentration - - Weight 68.6 kg (151 lb 3.2 oz) 03/06/2025 10:25 AM EDT Height 165.1 cm (5' 5 ) 03/06/2025 10:25 AM EDT Body Mass Index 25.16 03/06/2025 10:25 AM EDT Plan of Treatment Upcoming Encounters Date Type Department Care Team (Late st Contact Info) Description 07/19/2025 3:45 PM EST Office Visit [facility] [address] [place] [phone] Pietro Trinidad MD [address] [place] [phone] 08/16/2025 9:00 AM EST Office Visit [facility] [address] [place] [phone] Ansley Foster MD [address] [place] [phone] Health Maintenance Due Date Last Done Comments Family Planning (PISQ) 2003 Pap Smear 2009 Cervical Cancer Screening 2018 HPV/Cotest 2018 COVID-19 Vaccine ( season) 2025 05/09/2024, 03/16/2023, 09/23/2021, Additional history exists Influenza Vaccine (#1) 2025 05/09/2024, 2016 SDOH Screening 08/01/2025 08/01/2024 Alcohol/Substance Use Screening 01/04/2026 01/04/2025 Depression Screening 01/04/2026 01/04/2025, 01/05/20 Disability Screening 01/04/2026 01/04/2025 Tobacco Screening 03/06/2026 03/06/2025 DTaP/Tdap/Td Vaccines (2 - Td or Tdap) 07/13/2026 07/13/2016 Lipid Panel 02/05/2029 02/06/2024, 11/17/2022 Zoster Vaccines (1 of 2) 2038 RSV Patients and Patients Aged 60 years or older (1 - 1-dose 75+ series) 2063 HPV Vaccines Completed 08/22/2023, 04/10, 02/11/2023 Hepatitis B Vaccines Completed 09/29/2023, 03/16/2023, 12/08/2022 HIV Screening Completed 02/06/2024, 11/17/2022 Hepatitis C Screening Completed 02/06/2024, 023 HIB Vaccines Aged Out No longer eligi [...] Procedure Name Priority Date/Time Associated Diagnosis Comments CBC WITH AUTO DIFFERENTIAL Routine 06/08/2025 10:10 AM EST OBSX1 Routine 06/08/2025 10:10 AM EST HIGH SENSITIVITY TROPONIN I Routine 04/19/2025 8:06 PM EDT D DIMER HIGH SENSITIVITY Routine 04/19/2025 8:06 PM EDT HIGH SENSITIVITY TROPONIN I Routine 04/19/2025 5:07 PM EDT HCG, TOTAL, QN Routine 04/19/2025 5:07 PM EDT MAGNESIUM Routine 04/19/2025 5:07 PM EDT BASIC METABOLIC PANEL Routine 04/19/2025 5:07 PM EDT HEPATIC FUNCTION PANEL Routine 04/19/2025 5:07 PM EDT CBC WITH AUTO DIFFERENTIAL Routine 04/19/2025 5:07 PM EDT XR CHEST 2 VIEWS Routine 04/19/2025 4:15 PM EDT HEPATITIS C AB W/REFL TO HCV RNA, QN, PCR Routine 02/06/2024 8:25 AM EDT Annual physical exam HIV 1/2 ANTIGEN/ANTIBODY, FOURTH GENERATION W/RFL Routine 02/06/2024 8:25 AM EDT Annual physical exam LIPID PANEL, STANDARD Routine 02/06/2024 8:25 AM EDT Annual physical exam from Last 3 Months or Most Recently Relevant to Health Maintenance Results * OBSX1 (06/08/2025 10:10 AM EST) OBS1 NEGATIVE NEGATIVE [facility] 06/08/2025 10:1 0 AM EST 06/08/2025 10:13 AM EST us Generic External Data Provider LAB BLOOD ORDERAB LES Final Result [facility] [address] [place] [address] [phone] * (ABNORMAL) CBC auto differential (06/08/2025 10:10 AM EST) Only the most recent of2 resultswithin the time period is included. White Blood Count 6.3 4.8 - 10.8 X10*3/uL [facility] Red Blood Count 4.84 4.20 - 5.50 X10*6/uL [facility] Hemoglobin 11.8(L) 12.0 - 16.0 g/dl [facility] Hematocrit 37.0 37.0 - 47.0 % [facility] Mean Corpuscular Volume 76.4(L) 80.0 - 98.0 fL [facility] Mean Corpuscular Hemoglobin 24.4(L) 27.0 - 33.0 pg [facility] Mean Corpuscular HGB Conc 31.9 31.0 - 35.0 g/dl [facility] Red Cell Distribution Width 17.7(H) 11.0 - 16.0 % [facility] Platelet Count 260 160 - 400 X10*3/uL [facility] Mean Platelet Volume 10.3 9.4 - 12.3 fL [facility] Neutrophils Percent Auto 63.0 45 - 73 % [facility] Imm Gran Pct Auto 0.3 0.0 - 0.4 % [facility] Lymphocytes Percent Auto 26.5 20 - 40 % [facility] Monocytes Percent Auto 7.4 2 - 11 % [facility] Eosinophils Percent Auto 2.2 0 - 4 % [facility] Basophils Percent Auto 0.6 0 - 2 % [facility] NRBC Pct Auto 0.0 0.0 - 0.2 /100WBC [facility] Neutrophils Absolute Auto 4.0 2.0 - 8.3 x10*3/uL [facility] Imm Gran Abs Auto 0.02 0.00 - 0.03 X10*3/uL [facility] Lymphocytes Absolute Auto 1.7 1.2 - 4.9 X10*3/uL [facility] Monocytes Absolute Auto 0.5 0.1 - 1.2 X10*3/uL [facility] Eosinophils Absolute Auto 0.1 0.0 - 0.4 X10*3/uL [facility] Basophils Absolute Auto 0.0 0.0 - 0.2 X10*3/uL [facility] NRBC Abs Auto 0.000 0.0 - 0.012 X10*3/uL [facility] 06/08/2025 10:1 0 AM EST 06/08/2025 10:13 AM EST Generic External Data Provider LAB BLOOD ORDERAB LES Final Result Performing Organization Address [facility] de Phone Number [facility] [address] [place] [phone] * D Dimer High Sensitivity (04/19/2025 8:06 PM EDT) D Dimer High Sensitivity <150 NG/ML [facility] Comment:D-DIMER HS REFERENCE RANGENote: Our assay reports D-Dimer Units (D- DU).The cut-off value for venous thromboembolic (VTE) disease is230 ng/mL. This value has a very high negative predictivevalue when the patient has a low to moderate clinicalprobability of VTE.The upper limit of normal is 243 ng/mL. 04/19/2025 8:06 PM EDT 04/19/2025 8:10 PM EDT us Generic External Data Provider LAB BLOOD ORDERAB LES Final Result Performing Organization Address [facility] de Phone Number [facility] [address] [place] [phone] * High Sensitivity Troponin I (04/19/2025 8:06 PM EDT) Only the most recent of2 resultswithin the time period is included. TROPONIN I HIGH SENSITIVITY <2.7 <3.5 - 17.0 ng/L [facility] Comment:The [place] high sens itivity Troponin-I results should beused in conjunction with other diagnostic information suchas ECG, clinical observations and information, and patientsymptoms to aid in the diagnosis of IA. 04/19/2025 8:06 PM EDT 04/19/2025 8:10 PM EDT us Generic External Data Provider LAB BLOOD ORDERAB LES Final Result Performing Organization Address [facility] Co de Phone Number [facility] [address] [place] [phone] * hCG, Total, Quantitative (04/19/2025 5:07 PM EDT) Pathologist [facility] HCG Quantitative <2 mIU/mL [facility] Comment:Weeks post LMP Appro ximate hCG(Last Menstrual Period) Range (mIU/ml)3 - 4 weeks 9 - 1304 - 5 weeks 75 - 2,6005 - 6 weeks 850 - 20,8006 - 7 weeks 4000 - 100,2007 - 12 weeks 11,500 - 289,10982 - 16 weeks 18,300 - 137,49016 - 29 weeks (2nd trimester) 1,400 - 53,49869 - 41 weeks (3rd trimester) 940 - 60,000The [place] B- hCG assay is used for the early detection ofpregnancy; it cannot be used to diagnose any conditionunrelated to . If a B-hCG level is not supportedby the clinical evidence, results should be confirmed by analternative method (qualitative urine hCG, for example). 04/19/2025 5:07 PM EDT 04/19/2025 5:09 PM EDT us Generic External Data Provider LAB BLOOD ORDERAB LES Final Result Performing Organization Address City/[facility]/ZIP Co de Phone Number [facility] [address] [place] [phone] * Magnesium (04/19/2025 5:07 PM EDT) Pathologist [facility] Magnesium 2.2 1.6 - 2.6 mg/dL [facility] 04/19/2025 5:07 PM EDT 04/19/2025 5:09 PM EDT Generic External Data Provider LAB BLOOD ORDERAB LES Final Result Performing Organization Address City/[facility]/ZIP Co de Phone Number [facility] [address] [place] [address] [phone] * (ABNORMAL) Hepatic Function Panel (04/19/2025 5:07 PM EDT) [facility] Bilirubin, Total 0.2 0.0 - 1.0 mg/dL [facility] Bilirubin, Direct <0.2 0.0 - 0.5 mg/dL [facility] Aspartate Amino Transferase 26 5 - 31 U/L [facility] Alanine Aminotransferase 19 0 - 31 U/L [facility] Total Protein 8.2(H) 6.5 - 8.0 g/dL [facility] Albumin Level 4.7 3.5 - 5.0 g/dL [facility] Alkaline Phosphatase 62 39 - 117 U/L [facility] 04/19/2025 5:07 PM EDT 04/19/2025 5:09 PM EDT Generic External Data Provider LAB BLOOD ORDERAB LES Final Result Performing Organization Address City/[facility]/ZIP Co de Phone Number [facility] [address] [place] [phone] [phone] * (ABNORMAL) Basic Metabolic Panel (04/19/2025 5:07 PM EDT) [facility] Sodium 141 135 - 145 mmol/L [facility] Potassium 4.0 3.3 - 5.1 mmol/L [facility] Chloride 107 96 - 108 mmol/L [facility] Carbon Dioxide 28 22 - 29 mmol/L [facility] Anion Gap 10(L) 12 - 20 [facility] Urea Nitrogen (BUN) 16 9 - 16 mg/dL [facility] Creatinine, Serum 0.60 0.5 - 1.4 mg/dL [facility] Creatinine Clr Calc Pharmacy 115.5 [facility] Comment:Provided height and weight: 165.1 cm,66.95 kg.eGFR (calculated from the MDRD study equation) and eCrCl(calculated from the Cockcroft-Gault equation) are based ondifferent parameters and may not yield comparable results.If eCrCl result is absurd, please check patient'sheight/weight. Estimated Glomerular Filt Rate >60 [facility] Comment:Chronic Kidney Disea se: Estimated GFR < 60 mL/min/1.46g4Elfqvr Kidney Disease: Estimated GFR < 15 mL/min/1.73m2 Glucose 99 60 - 115 mg/dL [facility] Calcium 10.0 8.4 - 10.2 mg/dL [facility] 04/19/2025 5:07 PM EDT 04/19/2025 5:09 PM EDT us Generic External Data Provider LAB BLOOD ORDERAB LES Final Result [facility] [address] [place] [address] [phone] * XR Chest 2 Views (04/19/2025 4:15 PM EDT) Anatomical Region Laterality Modality Chest Radiographic Yamilet ging 04/19/2025 4:15 PM EDT Narrative 04/19/2025 4:29 PM EDT [address] [address] XRay Report Signed Patient: Melanie Jones MR#: [id number] : 1990 Acct:[id number] Age/Sex: 35 / F ADM Date: 04/19/25 Loc: HO.ED Attending Dr: Ordering Physician: Betty Webb Date of Service: 04/19/25 Procedure(s): XR chest 2V Accession Number(s): [id number] cc: Ansley Foster MD; Betty Webb Reason for Exam: CP EXAMINATION: XR CHEST CLINICAL INFORMATION: CP COMPARISON: None available. TECHNIQUE: 2 views of the chest were obtained. FINDINGS: No significant abnormality is noted involving the heart, lungs, mediastinum, bony thorax or soft tissues. XR/XR chest 2V IMPRESSION: No acute disease Electronically signed by: Sebastian Mattson MD 04/19/2025 04:27 PM EDT RP Dictated By: Sebastian Mattson MD Signed By: <Electronically signed by Sebastian Mattson MD in OV> 04/19/25 1627 DD/ 1615 TD/TT: 04/19/25 1621 Mine Analyst: LUIS Procedure Note Donotuseinterpreter, Image - 04/19/[address] [address] XRay Report Signed Patient: Leonarda Jones#: [id number] : 1990Acct:[id number] Age/Sex: 35 / FADM Date: 04/19/25 Loc: .ED Attending Dr: Ordering Physician: Betty Webb Date of Service: 04/19/25 Procedure(s): XR chest 2V Accession Number(s): [id number] cc: Ansley Foster MD; Betty Webb Reason for Exam: CP EXAMINATION: XR CHEST CLINICAL INFORMATION: CP COMPARISON: None available. TECHNIQUE: 2 views of the chest were obtained. FINDINGS: No significant abnormality is noted involving the heart, lungs, mediastinum, bony thorax or soft tissues. XR/XR chest 2V IMPRESSION: No acute disease Electronically signed by: Sebastian Mattson MD 04/19/2025 04:27 PM EDT RP Dictated By: Sebastian Mattson MD Signed By: <Electronically signed by Sebastian Mattson MD in OV> 04/19/25 1627 DD/ 1615 TD/TT: 04/19/25 1621 Mine Analyst: LUIS [facility] External Provider IMG XR PROCEDURES Final Result * Hepatitis C Antibody with Reflex to HCV, RNA, Quantitative, Real-Time PCR (02/06/2024 8:25 AM EDT) Hepatitis C Antibody Nonreactive Nonreactive [facility] Comment:Antibodies to HCV no t detected; does not exclude early acuteHCV infection. Blood Venous blood specimen / Unknown 02/06/2024 8:25 AM EDT 02/06/2024 11:37 AM EDT Melisa Ansley Friend MD LAB BLOOD ORDERAB LES Final Result [facility] [address] [place] [phone] * HIV-1/2 Antigen and Antibodies, Fourth Generation, with Reflexes (02/06/2024 8:25 AM EDT) HIV AB/AG Nonreactive Nonreactive [facility] Comment:HIV-1 p24 Ag and/or HIV-1/HIV-2 Ab not detected.A test result that is nonreactive does not exclude thepossibility of exposure to or infection with HIV-1 and/orHIV-2. Nonreactive results in this assay for individualswith prior exposure to HIV-1 and/or HIV-2 may be due toantigen and antibody levels that are below the limit ofdetection of this assay.The [employer] HIV Ag/Ab Combo assay result andsupplemental assay results should be interpreted inconjunction with the patient's clinical presentation,history and other laboratory results. If the results areinconsistent with clinical evidence, additional testing issuggested to confirm the result. Blood Venous blood specimen / Unknown 02/06/2024 8:25 AM EDT 02/06/2024 11:37 AM EDT us Ansley Friend MD LAB BLOOD ORDERAB LES Final Result [facility] [address] [place] [phone] [phone] * (ABNORMAL) Lipid Panel, Standard (02/06/2024 8:25 AM EDT) Triglycerides 225(H) <150 mg/dL [facility] Comment:Desirable Triglyceri de: less than 150 mg/dLBorderline High Triglyceride 150-199 mg/dLHigh Triglyceride: 200-499 mg/dLVery High Triglyceride: greater than or equal to 5OO mg/dL Cholesterol 135 <200 mg/dL [facility] Comment:Desirable Cholestero l: less than 200 mg/dLBorderline High Cholesterol: 200-239 mg/dLHigh Cholesterol: greater than 239 mg/dL LDL Cholesterol Calculated 51 <100 mg/dL [facility] Comment:Desirable LDL: less than 100 mg/dLNear Optimal/Above Optimal LDL: 110- 129 mg/dLBorderline High LDL: 130-159 mg/dLHigh LDL: 160-189 mg/dLVery High LDL: greater than or equal to 190 mg/dL HDL Cholesterol 39(L) >40 mg/dL [facility] Comment:Desirable HDL: great er than 40 mg/dL Note: This HDL assay may give artificially low results in patients with liver disease. Blood Venous blood specimen / Unknown 02/06/2024 8:25 AM EDT 02/06/2024 11:37 AM EDT us Ansley Friend MD LAB BLOOD ORDERAB LES Final Result [facility] [address] [place] [phone] from Last 3 Months or Most Recently Relevant to Health Maintenance Insurance [facility] STANDARD Care Teams Infection Control Coordinator Relationship Specialty Start Date End Date Ansley Foster MD [address] [place] [address] PCP - General Internal Medicine 11/10/22
--- OUTSIDE RECORDS SUMMARY | 2025-06-08 10:19 | XMS_ITS | Encounter Summary ---
Demographics Address [address] [facility] [address] [place] [address] Mobile Phone Home Phone Email Address Preferred Language es Marital Status Single Scientology Affiliation Unknown Race Other Race Ethnic Group Unknown Author Organization [employer] Address [address] [place] [address] [address] [place] [address] Care Team Providers Care Regional Trainer Name Role Phone Ansley Foster MD Primary Care Pro vider Reason for Visit * Reason Onset Date Comments Nurse Triage 03/05/2025 Encounter Details Date Type Department Care Team ([facility] st Contact Info) Description 03/05/2025 Telephone [facility] [address] [place] [address] Ansley Foster MD [address] [place] [address] Nurse Triage Social History Tobacco Use Types Packs/Day Years [...] encounter Miscellaneous Notes * Telephone Encounter - Francis Henry - 03/05/2025 9:59 AM EDT Patient calling to report ED visit on : Date: 03/05/2025 Hospital: [facility] Seen for: Panic attack Symptomatic Yes *if yes message should go to Triage Patient advised will forward to team nurse for follow up documented in this encounter Plan of Treatment Upcoming Encounters Date Type Department Care Team (Late st Contact Info) Description 07/19/2025 3:45 PM EST Office Visit [facility] [address] [place] [phone] Pietro Trinidad MD [address] [place] [phone] 08/16/2025 9:00 AM EST Office Visit [facility] [address] [place] [phone] Ansley Foster MD [address] [place] [phone] documented as of this encounter Visit Diagnoses Not on filedocumented in this encounter Additional Health Concerns Assessment Noted Time PHQ-9 Depression Total Score: 5 01/05/20 25 9:56 AM EDT documented as of this encounter Care Teams Regional Trainer Relationship Specialty Start Date End Date Ansley Foster MD [address] [place] [phone] PCP - General Internal Medicine 11/10/22 documented as of this encounter
--- OUTSIDE RECORDS SUMMARY | 2025-06-08 10:19 | XMS_ITS | Patient Health Record ---
Author Organization [facility] Address [address] [place] [address] Care Team Providers Care Regional Clinical Director Name Role Phone LAI MARCANO Unavailable [phone] Isha Gil Unavailable [phone] Allergies No Known Allergies Results Component Value Reference Range Notes [facility] Reviewed date:09/19/2024 10:33:11 AM Interpretation:Normal Performing Lab: Notes/Report: Normal Clue Cells neg WBC few Hyphae neg Trichomonas neg pH 5 ALBERTO Prep neg whiff Reason For Referral No Information Medications Medication SIG (Take, Route, Frequency, Duration) Notes Start Date End Date Status Citalopram Hydrobromide Active Ferrous Sulfate Not- Taking/PRN Immunizations Vaccine Route Administration Date Status Comme nts HPV 9 IM Intramuscular 02/11/2023 Administered HPV 9 IM Intramuscular 04/20/2023 Administered Vaccin e given by Tyler Berry RN, Student METAL CNC OPERATOR HPV 9 IM Intramuscular 08/22/2023 Administered Social History Sex Assigned At : Social History Observation Description Sex Assigned At Female Social History HIV Risk Assessment Social Info Question Answer Notes Additional Questions Is an HIV Risk Asse ssment being conducted? No Reproductive Life Plan: Social Info Question Answer Notes Reproductive Life Plan: Do you want to have chil dren? No, I don't want to have children How sure are you that you will be able to use your control method without any problems? Very sure People's plans change. Is it possible you or your partner could ever decide to become ? No Human Trafficking: Social Info Question Answer Notes Human Trafficking Experienced: No PrEP for HIV: Social Info Question Answer Notes PrEP for HIV Is the client intere sted in beginning/continuing PrEP for HIV? No Sexual History: Social Info Question Answer Notes Sexual History: Sexual History Reviewed: Partner s, Practices, Protection/Past STIs, Prevention of Currently sexually active? Yes Sexually active with: Men Number of male partners 1 Your sexual activities include: vaginal intercourse Reviewed types of EC? No Do you use condoms? No Date of last unprotected intercourse: 09/17/2024 Number of partners in past 3 months: 1 Number of partners in past year: 1 What is the client's primary method to prevent at the end of their visit? Sterilization Does your partner(s) currently have any STIs? No Counseling Provided: Social Info Question Answer Notes Counseling Provided Please indicate the length of time, in minutes, that counseling was provided. 6 Counseling Was Provided By: walter Drugs/Alcohol: Social Info Question Answer Notes Drug/Alcohol Use Do you or have you used drugs? No Do you or have you used alcohol? No Food Access: Social Info Question Answer Notes Food Access The Client's current access to food is Secure Food Access Relationships: Social Info Question Answer Notes Relationships Has the client exper ienced any of the following: Client has never experienced harmful relationships Housing Social Info Question Answer Notes Housing The client's current living situation is: stable housing Tobacco Use: Social Info Question Answer Notes Tobacco Use: Do you/have you used tobacco? No Tobacco Smoking Status Never smoker Problems Problem Type SNOMED Code ICD Code Onset Dates Problem Status W/U Status Risk Notes Problem Information temporarily unavailable Chronic inflammatory disease of uterus (N71.1) Active confirmed Problem Information temporarily unavailable Endometrial hyperplasia, unspecified (N85.00) Active confirmed Problem Information temporarily unavailable Irregular menstruation, unspecified (N92.6) Active confirmed Problem Information temporarily unavailable Irregular menses (N92.6) Active confirmed Vital Signs Blood pressure diastolic 76 mm Hg 09/19/2024 Height 5'2 in 09/19/2024 Blood pressure systolic 128 mm Hg 09/19/2024 Weight 153.4 lbs 09/19/2024 BMI 28.05 kg/m2 09/19/2024 Encounters Encounter Location Date Provider Diagnosis [facility] [address] [place] [address] [address] [place], [place] [id number] 09/19/2024 LAI MARCANO Encounter for screening for [...] procedures Communication of test results Established Patient: [id number] 20 Minutes Plan Of Treatment No Information Insurance Providers Payer Name Payer Address Payer Phone Subscriber Number Group Number Insured Name Patient Relationship to Insured Coverage Start Date Coverage End Date [place] [address] [place] [id number] Melanie Calloway Self - patient is the insured Medical (General) History Medical History History ICD Code Anxiety Anemia Pelvic u/s 10/2023 with thickened endomtr ium, emb collected 01/11/24 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
--- OUTSIDE RECORDS SUMMARY | 2025-06-08 10:19 | XMS_ITS | Encounter Summary ---
Demographics Address [address] [facility] [address] [place] [address] Mobile Phone Home Phone Email Address Preferred Language es Marital Status Single Congregation Affiliation Unknown Race Other Race Ethnic Group Unknown Author Organization [employer] Address [address] [facility] 7t [place] [address] Care Team Providers Care Pellet Mill Operator Name Role Phone Ansley Foster MD Primary Care Pro vider Encounter Details Date Type Department Care Team (Late st Contact Info) Description 06/08/2025 Orders Only GENERIC EXTERNAL DATA DEPARTMENT Provider, Generic External Data Social History Tobacco Use Types Packs/Day Years [...] is your housing situation today? I have annmarielucia munoz 08/01/[address] you [...] Description 07/19/2025 3:45 PM EST Office Visit [address] [phone] Pietro Trinidad MD [address] [place] [phone] 08/16/2025 9:00 AM EST Office Visit [facility] [address] [place] [address] Ansley Foster MD [address] [place] [address] [phone] documented as of this encounter Procedures Procedure Name Priority Date/Time Associated Diagnosis Comments OBSX1 Routine 06/08/2025 10:10 AM EST CBC WITH AUTO DIFFERENTIAL Routine 06/08/2025 10:10 AM EST documented in this encounter Results * (ABNORMAL) CBC auto differential (06/08/2025 10:10 AM EST) White Blood Count 6.3 4.8 - 10.8 X10*3/uL [facility] Red Blood Count 4.84 4.20 - 5.50 X10*6/uL [facility] Hemoglobin 11.8(L) 12.0 - 16.0 g/dl [facility] Hematocrit 37.0 37.0 - 47.0 % [facility] Mean Corpuscular Volume 76.4(L) 80.0 - 98.0 fL [facility] Mean Corpuscular Hemoglobin 24.4(L) 27.0 - 33.0 pg [facility] Mean Corpuscular HGB Conc 31.9 31.0 - 35.0 g/dl [facility] Red Cell Distribution Width 17.7(H) 11.0 - 16.0 % [facility] Platelet Count 260 160 - 400 X10*3/uL [facility] Mean Platelet Volume 10.3 9.4 - 12.3 fL [facility] Neutrophils Percent Auto 63.0 45 - 73 % [facility] Imm Gran Pct Auto 0.3 0.0 - 0.4 % [facility] Lymphocytes Percent Auto 26.5 20 - 40 % [facility] Monocytes Percent Auto 7.4 2 - 11 % [facility] Eosinophils Percent Auto 2.2 0 - 4 % [facility] Basophils Percent Auto 0.6 0 - 2 % [facility] NRBC Pct Auto 0.0 0.0 - 0.2 /100WBC [facility] Neutrophils Absolute Auto 4.0 2.0 - 8.3 x10*3/uL [facility] Imm Gran Abs Auto 0.02 0.00 - 0.03 X10*3/uL [facility] Lymphocytes Absolute Auto 1.7 1.2 - 4.9 X10*3/uL [facility] Monocytes Absolute Auto 0.5 0.1 - 1.2 X10*3/uL [facility] Eosinophils Absolute Auto 0.1 0.0 - 0.4 X10*3/uL [facility] Basophils Absolute Auto 0.0 0.0 - 0.2 X10*3/uL [facility] NRBC Abs Auto 0.000 0.0 - 0.012 X10*3/uL [facility] 06/08/2025 10:1 0 AM EST 06/08/2025 10:13 AM EST us Generic External Data Provider LAB BLOOD ORDERAB LES Final Result [facility] [address] [place] [address] [phone] * OBSX1 (06/08/2025 10:10 AM EST) OBS1 NEGATIVE NEGATIVE [facility] 06/08/2025 10:1 0 AM EST 06/08/2025 10:13 AM EST us Generic External Data Provider LAB BLOOD ORDERAB LES Final Result [facility] [address] [place] [phone] documented in this encounter Visit Diagnoses Not on filedocumented in this encounter Additional Health Concerns Assessment Noted Time PHQ-9 Depression Total Score: 5 01/05/20 25 9:56 AM EDT documented as of this encounter Care Teams Pellet Mill Operator Relationship Specialty Start Date End Date Ansley Foster MD [address] [place] [address] PCP - General Internal Medicine 11/10/22 documented as of this encounter
--- OUTSIDE RECORDS SUMMARY | 2025-06-08 10:19 | XMS_ITS | Encounter Summary ---
Demographics Address [address] [facility] [address] [place] [address] Mobile Phone Home Phone Email Address Email Address m Preferred Language es Marital Status Single Scientologist Affiliation Unknown Race Other Race Ethnic Group Unknown Author Organization [employer] Address [address] [facility] 7t [place] [address] Care Team Providers Care Regulator Pin Inserter Name Role Phone Ansley Foster MD Primary Care Pro vider Reason for Visit * Reason Onset Date Comments Results 11/04/2023 Encounter Details Date Type Department Care Team ([facility] Contact Info) Description 11/04/2023 Telephone [facility] [address] [place] [address] Ansley Foster MD [address] [place] [address] Results Social History Tobacco Use Types Packs/Day [...] Pelvis Transvaginal Date when done: 11/02 Facility: [facility] documented in this encounter Plan of Treatment Upcoming Encounters Date Type Department Care Team (Late st Contact Info) Description 07/19/2025 3:45 PM EST Office Visit [address] [address] Pietro Trinidad MD [address] [place] [address] 08/16/2025 9:00 AM EST Office Visit [facility] [address] [place] [address] Ansley Foster MD [address] [place] [address] documented as of this encounter Visit Diagnoses Not on filedocumented in this encounter Additional Health Concerns Assessment Noted Time PHQ-9 Depression Total Score: 8 03/16/20 23 8:59 AM EDT documented as of this encounter Care Teams Regulator Pin Inserter Relationship Specialty Start Date End Date Ansley Foster MD [address] [place] [phone] PCP - General Internal Medicine 11/10/22 documented as of this encounter
--- OUTSIDE RECORDS SUMMARY | 2025-06-08 10:19 | XMS_ITS | Encounter Summary ---
Demographics Address [address] [facility] [address] [place] [address] Mobile Phone Home Phone Email Address Preferred Language es Marital Status Single Restoration Affiliation Unknown Race Other Race Ethnic Group Unknown Author Organization [employer] Address [address] [place] [address] 7 [place] [address] Care Team Providers Care Partnership Development Manager Name Role Phone Ansley Foster MD Primary Care Pro vider Reason for Visit * Reason Onset Date Comments Appointment Request 10/08/2024 Encounter Details Date Type Department Care Team ([facility] st Contact Info) Description 10/08/2024 Telephone [facility] [address] [place] [address] Ansley Foster MD [address] [place] [address] Appointment Request Social History Tobacco Use Types [...] requesting appointment for DERM please return call [phone] documented in this encounter Plan of Treatment Upcoming Encounters Date Type Department Care Team (Late st Contact Info) Description 07/19/2025 3:45 PM EST Office Visit [facility] [address] [place] [address] Pietro Trinidad MD [address] [place] [address] 08/16/2025 9:00 AM EST Office Visit [facility] [address] [place] [address] Ansley Foster MD [address] [place] [address] documented as of this encounter Visit Diagnoses Not on filedocumented in this encounter Additional Health Concerns Assessment Noted Time PHQ-9 Depression Total Score: 2 05/09/20 24 9:30 AM EDT documented as of this encounter Care Teams Partnership Development Manager Relationship Specialty Start Date End Date Ansley Foster MD [address] [place] [phone] PCP - General Internal Medicine 11/10/22 documented as of this encounter
--- OUTSIDE RECORDS SUMMARY | 2025-06-08 10:19 | XMS_ITS | Encounter Summary ---
Demographics Address [address] [facility] [address] [place] [address] Mobile Phone Home Phone Email Address Email Address Preferred Language es Marital Status Single Nondenominational Affiliation Unknown Race Other Race Ethnic Group Unknown Author Organization [employer] Address [address] [facility] 7t [place] [address] Care Team Providers Care Parts Product Analyst Name Role Phone Ansley Foster MD Primary Care Pro vider Reason for Visit * Reason Comments Med Refill Encounter Details Date Type Department Care Team ([facility] st Contact Info) Description 12/21/2023 Refill [facility] [address] [place] [address] Ansley Foster MD [address] [place] [address] Social History Tobacco Use Types Packs/Day Years Used Date Smoking Tobacco: Never Passive Smoke Exposure: Never Smokeless Tobacco: Never Alcohol Use Standard Drinks/Week Comments Never 0 (1 standard drink = 0.6 oz pur e alcohol) Depression Answer Date Recorded Patient Health Questionnaire-9 Score 8 03/16/2023 Housing Stability Answer Date Recorded What is your housing situation today? I have annmarie tammy 05/03/[address] you li [...] Description 07/19/2025 3:45 PM EST Office Visit [facility] [address] [place] [address] Pietro Trinidad MD [address] [place] [address] 08/16/2025 9:00 AM EST Office Visit [facility] [address] [place] [address] Ansley Foster MD [address] [place] [address] documented as of this encounter Visit Diagnoses Not on filedocumented in this encounter Additional Health Concerns Assessment Noted Time PHQ-9 Depression Total Score: 8 03/16/20 23 8:59 AM EDT documented as of this encounter Care Teams Parts Product Analyst Relationship Specialty Start Date End Date Ansley Foster MD [address] [place] [address] PCP - General Internal Medicine 11/10/22 documented as of this encounter
--- OUTSIDE RECORDS SUMMARY | 2025-06-08 10:19 | XMS_ITS | Encounter Summary ---
Demographics Address [address] [facility] [address] [place] [address] Mobile Phone Home Phone Email Address Email Address m Preferred Language es Marital Status Single Amish Affiliation Unknown Race Other Race Ethnic Group Unknown Author Organization [employer] Address [address] [facility] 7 [place] [address] Care Team Providers Care Paradichlorobenzene Tender Name Role Phone Ansley Foster MD Primary Care Pro vider Reason for Referral * Consultation (Routine) - Closed Specialty Diagnoses / Procedures Referred By Candy patrick Referred To Contact Family Medicine Diagnoses Dermatitis Melissa Martínez FNP [address] [place] [address] Phone: tel: fax: Referral ID Status Reason Start Date Expiration Date V isits Requested Visits Authorized [id number] Closed Specialty Services Required 08/14/2024 08/14/2025 1 1 Reason for Visit * Reason Onset Date Comments Referral 08/14/2024 Encounter Details Date Type Department Care Team ([facility] st Contact Info) Description 08/14/2024 Telephone [facility] [address] [place] [address] Ansley Foster MD [address] [place] [address] Referral Social History Tobacco Use Types Packs/Day [...] call to make an appt with the peoplesoft functional analyst. * Telephone Encounter - SHERIE Ha - 08/14/2024 1:30 PM EST Referral placed to [facility] Derm team, thanks! * Telephone Encounter - Alice Quinones - 08/14/2024 12:48 PM EST Tc from pt requesting Hand Driller referral. (Last visit , Tanya) [phone] (divehi) documented in this encounter Plan of Treatment Upcoming Encounters Date Type Department Care Team (Late st Contact Info) Description 07/19/2025 3:45 PM EST Office Visit [facility] [address] [place] [address], [place] [address] Pietro Trinidad MD [address] [place] [address] 08/16/2025 9:00 AM EST Office Visit [facility] [address] [place] [address], [place] [address] Ansley Foster MD [address] [place] [address] Scheduled Referrals Name Type Priority Associated Diagnoses Orde r Schedule Referral to [facility] Derm Skin Adult Outpatient Referral Routine Dermatitis Expected: 08/14/2024 (Approximate), Expires: 08/14/2025 documented as of this encounter Visit Diagnoses Diagnosis Dermatitis- Primary Contact dermatitis and other eczema, due to unspecified cause documented in this encounter Additional Health Concerns Assessment Noted Time PHQ-9 Depression Total Score: 2 05/09/20 24 9:30 AM EDT documented as of this encounter Care Teams Paradichlorobenzene Tender Relationship Specialty Start Date End Date Ansley Foster MD [address] [place] [address] [phone] PCP - General Internal Medicine 11/10/22 documented as of this encounter
--- OUTSIDE RECORDS SUMMARY | 2025-06-08 10:19 | XMS_ITS | Encounter Summary ---
Demographics Address [address] [facility] [address] [place] [address] Mobile Phone Home Phone Email Address Email Address m Preferred Language es Marital Status Single Worship Affiliation Unknown Race Other Race Ethnic Group Unknown Author Organization [employer] Address [address] [place] [address] 7t [place] [address] Care Team Providers Care Senior Risk Manager Name Role Phone Ansley Foster MD Primary Care Pro vider Reason for Visit * Reason Comments Med Refill Encounter Details Date Type Department Care Team ([facility] st Contact Info) Description 12/08/2022 Refill [facility] [address] [place] [address] Ansley Foster MD [address] [place] [address] Social History Tobacco Use Types Packs/Day Years [...] 3:54 PM EDT Yovana Kam MA * How difficult have these problems made it for you to do your work, take care of things at home, or get along with other people? Answer Date of Assessment Author Not difficult at all 12/08/2022 3:54 PM EDT Yovana Galvan MA * Over the past 2 weeks, [...] Description 07/19/2025 3:45 PM EST Office Visit [facility] [address] [place] [address] Pietro Trinidad MD [address] [place] [address] 08/16/2025 9:00 AM EST Office Visit [facility] [address] [place] [address] Ansley Foster MD [address] [place] [address] [phone] documented as of this encounter Visit Diagnoses Not on filedocumented in this encounter Additional Health Concerns Assessment Noted Time PHQ-9 Depression Total Score: 5 12/09/19 23 3:54 PM EDT documented as of this encounter Care Teams Senior Risk Manager Relationship Specialty Start Date End Date Ansley Foster MD [address] [place] [address] PCP - General Internal Medicine 11/10/22 documented as of this encounter
--- OUTSIDE RECORDS SUMMARY | 2025-06-08 10:19 | XMS_ITS | Encounter Summary ---
Demographics Address [address] [facility] [address] [place] [address] Mobile Phone Home Phone Email Address m Email Address m Preferred Language es Marital Status Single Alevism Affiliation Unknown Race Other Race Ethnic Group Unknown Author Organization [email or web address] Address [address] [place] [address] 7t [place] [address] Care Team Providers Care Customer Solutions Architect Name Role Phone Ansley Foster MD Primary Care Pro vider Reason for Visit * Reason Onset Date Comments Appointment Request 10/03/2023 Encounter Details Date Type Department Care Team ([facility] Contact Info) Description 10/03/2023 Telephone [facility] [address] [place] [address] Ansley Foster MD [address] [place] [address] Appointment Request Social History Tobacco Use Types [...] Miscellaneous Notes * Telephone Encounter - La Kun - 10/03/2023 10:26 AM EDT Tc from pt requesting an appointment with honing machine operator semiautomatic. Pt was scheduled 05/24/2023. Please contact pt at [phone] documented in this encounter Plan of Treatment Upcoming Encounters Date Type Department Care Team (Late st Contact Info) Description 07/19/2025 3:45 PM EST Office Visit [facility] [address] [place] [address] Pietro Trinidad MD [address] [place] [address] 08/16/2025 9:00 AM EST Office Visit [facility] [address] [place] [address] Ansley Foster MD [address] [place] [address] documented as of this encounter Visit Diagnoses Not on filedocumented in this encounter Additional Health Concerns Assessment Noted Time PHQ-9 Depression Total Score: 8 03/16/20 23 8:59 AM EDT documented as of this encounter Care Teams Customer Solutions Architect Relationship Specialty Start Date End Date Ansley Foster MD [address] [place] [address] PCP - General Internal Medicine 11/10/22 documented as of this encounter
[2025-06-08 10:31] LABS: Alanine Aminotransferase 16 U/L (0-31); Albumin Level 4.4 g/dL (3.5-5.0); Alkaline Phosphatase 55 U/L (39-117); Anion Gap 10 (12-20); Aspartate Amino Transferase 20 U/L (5-31); Blood Urea Nitrogen 18 mg/dL (9-16); Calcium 9.3 mg/dL (8.4-10.2); Carbon Dioxide 27 mmol/L (22-29); Chloride 107 mmol/L (96-108); Creatinine Clr Calc Pharmacy 103.4; Estimated Glomerular Filt Rate > 60; Magnesium 2.0 mg/dL (1.6-2.6); Potassium 3.9 mmol/L (3.3-5.1); Sodium 140 mmol/L (135-145); Total Protein 7.7 g/dL (6.5-8.0)
[2025-06-08 11:03] VITALS: BP 133/76; PULSE 75; RESP 18; TEMP 36.2; O2SAT 99
== END 2025-06-08 11:03 | disposition home or self-care (01) ==
PROVIDERS: Emergency Provider Emergency Medicine; PCP Student in an Organized Health Care Education/Training Program
DX: N92.4 Excessive bleeding in the premenopausal period (principal); N92.0 Excessive and frequent menstruation with regular cycle; Z79.899 Other long term (current) drug therapy
CPT/HCPCS: 36415; 80053; 82272; 83735; 85025; 99282; 99283

== ENCOUNTER 2025-06-18 16:21 | Outpatient (REF) | payer MEDICAID, SELFPAY ==
--- OUTSIDE RECORDS SUMMARY | 2024-06-06 09:30 | XMS_ITS ---
Author Organization [facility] Address [address] [place] [address] Care Team Providers Care Photoengraver Apprentice Name Role Phone MARITZA MARQUEZ Unavailable [phone] REASON FOR VISIT Routine Testing Social History Sex Assigned At : Social History Observation Description Sex Assigned At Female Encounters Encounter Location Date Provider Diagnosis [facility] [address] [place], [place] [phone] MARITZA MARQUEZ Plan Of Treatment No Information Progress Notes * Melanie SIERRA MDOB: [birth year] (35 yo F)Acc No.[id number]:06/06/2024 Progress Notes Patient: Sania preeti Melanie Castellanos Provider: Rom MARQUEZ :1990 A ge:34 Y S ex:Female Date:06/06/2024 Address:[address] [place], [place] [id number] Subjective: * Chief Complaints: * R outine Testing * Electronic signature of CLAUDE MARQUEZ CNM on 06/18/2025 at 08:33 AM EST Sign off status: Pending * Provider: Rom MARQUEZ Date: 08/06/2023 Generated for Anatoliy young/Bob/Joan on: 08/19/2024 08:33 AM EST
--- OUTSIDE RECORDS SUMMARY | 2024-06-15 05:00 | XMS_ITS ---
Author Organization [facility] Address [address] [place] [address] Care Team Providers Care Ditching Machine Operator Name Role Phone Isha Gil Unavailable [phone] REASON FOR VISIT Infection Screening Social History Sex Assigned At : Social History Observation Description Sex Assigned At Female Encounters Encounter Location Date Provider Diagnosis [facility] [address] [place] [phone] 06/15/2024 Isha Gil Plan Of Treatment No Information Progress Notes * Melanie SIERRA MDOB: [birth year] (35 yo F)Acc No.[id number]:06/15/2024 Progress Notes Patient: Santiago Samsdeangelodavonte Castellanos Provider: SANIA Mazariegos :1990 A ge:34 Y S ex:Female Date:06/15/2024 Address:[address] [place], [place] [id number] Subjective: * Chief Complaints: * I nfection Screening * Electronic signature of JAQUI Morales on 06/18/2025 at 08:34 AM EST Sign off status: Pending * Provider: SANIA Mazariegos Date: 08/16/2023 Generated for Anatoliy young/Bob/eTransmitting on: 08/19/2024 08:34 AM EST
--- OUTSIDE RECORDS SUMMARY | 2025-06-18 08:40 | XMS_ITS | Encounter Summary ---
Demographics Address [address] [place] [address] Mobile Phone Home Phone Email Address m Email Address m Preferred Language es Marital Status Single Yazidism Affiliation Unknown Race Other Race Ethnic Group Unknown Author Organization [facility] Address [address] [place] [address] Care Team Providers Care Licensed Practical Nurse Clinic Nurse Name Role Phone Ansley Foster MD Primary Care Pro vider Reason for Visit * Reason Comments Blood in Urine Vaginal Discharge Encounter Details Date Type Department Care Team ([facility] st Contact Info) Description 06/18/2025 8:40 AM EST Office Visit [facility] [address] [place] [address] Wilmer Pascal MD [address] [place] [address] Vaginal discharge (Primary Dx); Dysuria Social History Tobacco Use Types Packs/Day Years [...] Sign Reading Time Taken Comments Blood Pressure 133/89 06/18/2025 8:40 AM EST Pulse 72 06/18/2025 8:40 AM EST Temperature 36.4 C (97.6 F) 06/18/2025 8:40 AM EST Respiratory Rate 18 06/18/2025 8:40 AM EST Oxygen Saturation 100% 06/18/2025 8:56 AM EST Inhaled Oxygen Concentration - - Weight 68 kg (150 lb) 06/18/2025 8:40 AM EST Height 165.1 cm (5' 5 ) 06/18/2025 8:40 AM EST Body Mass Index 24.96 06/18/2025 8:40 AM EST documented in this encounter Progress Notes * Wilmer Pascal MD - 06/18/2025 8:40 AM EST Subjective Patient ID: Melanie Calloway is a 35 y.o. female. Square Cutter: Asad PALENCIA Last night after wiping herself after urinating, Melanie noted light redness on the toilet paper, occurred once. Had no redness on toilet paper this AM after urinating, and noticed vaginal discharge and urine odor. No frequency, burning. Denies fever, chills, n/v, abdominal or flank pain. Melanie was seen at [facility] ED 6 days ago for 1 episode of bright red blood on toiletpaper after having bowel movement, and she was at the end of her menstrual period. CBC was normal except for hemoglobin of 11.8, which is baseline for her.. Hematocrit was normal. She has history of iron deficiency anemia, taking ferrous gluconate and vitamin C. Rectal exam was negative for occult blood. Clinical impression: Menstrual bleeding problem. Lives with and 2 children. LMP=Last week. Works at [employer] Never smoked. 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 Respiratory: Negative for shortness of breath. Cardiovascular: Negative for chest pain. Gastrointestinal: Negative for abdominal pain. Genitourinary: Positive for dysuria and vaginal discharge. Negative for flank pain. Skin: Negative for rash. Neurological: Negative for headaches. Objective Physical Exam Constitutional: Appearance: Normal appearance. HENT: Nose: Nose normal. Mouth/Throat: Mouth: Mucous membranes are moist. Pharynx: Oropharynx is clear. Eyes: Conjunctiva/sclera: Conjunctivae normal. Pupils: Pupils are equal, round, and reactive to light. Cardiovascular: Rate and Rhythm: Normal rate and regular rhythm. Heart sounds: No murmur heard. Pulmonary: Effort: Pulmonary effort is normal. Breath sounds: Normal breath sounds. Abdominal: General: Abdomen is flat. Palpations: Abdomen is soft. Tenderness: There is no abdominal tenderness. There is no right CVA tenderness or left CVA tenderness. Musculoskeletal: General: Normal range of motion. Cervical back: No tenderness. Skin: Findings: No rash. Neurological: Mental Status: She is alert. Gait: Gait is intact. Psychiatric: Mood and Affect: Mood normal. Behavior: Behavior normal. Procedures Assessment/Plan Diagnoses and all orders for this visit: Vaginal discharge Self vaginal swabs sent for BV panel, CT/GC. Will call patient with results Patient states symptoms are similar to when she had BV in February, and prefers to start treatment now rather than wait for test results. She prefers Flagyl tablets to intravaginal gel. Return to clinic if not improving - Chlamydia/N. Gonorrhoeae RNA, TMA, Vaginal - Bacterial Vaginosis Panel Dysuria Urine C&S pending. Will call patient with results. Return to clinic if symptoms and/or redness on toilet paper recurs. - POCT Urinalysis - Culture, Urine, Routine Other orders - metroNIDAZOLE (Flagyl) 500 MG tablet; Take 1 tablet (500 mg) by mouth after breakfast and after evening meal for 7 days. documented in this encounter Plan of Treatment Upcoming Encounters Date Type Department Care Team (Late st Contact Info) Description 07/19/2025 3:45 PM EST Office Visit [address] [id number] Pietro Trinidad MD [address] [place] [address] [phone] 08/16/2025 9:00 AM EST Office Visit [address] [phone] Ansley Foster MD [address] [place] [address] [phone] Scheduled Orders Name Type Priority Associated Diagnoses Orde r Schedule Chlamydia/N. Gonorrhoeae RNA, TMA, Vaginal Microbiology Routine Vaginal discharge Ordered: 06/18/2025 Bacterial Vaginosis Panel Microbiology Routine Vaginal discharge Ordered: 06/18/2025 Culture, Urine, Routine Microbiology Routine Dysuria Ordered: 06/18/2025 documented as of this encounter Procedures Procedure Name Priority Date/Time Associated Diagnosis Comments POCT URINALYSIS DIPSTICK Routine 06/18/2025 9:07 AM EST Dysuria documented in this encounter Results * (ABNORMAL) POCT Urinalysis (06/18/2025 9:07 AM EST) Color, UA Light Yellow Clarity, UA Clear Glucose, UA Negative Bilirubin, UA Negative Ketones, UA Negative Spec Grav, UA 1.020 Blood, UA Positive(A) Negative, None Detected Comment:Trace-Iysed pH, UA 5.5 Protein, UA Negative Urobilinogen, UA 0.2 Leukocytes, UA Negative Negative, Rare, Trace, 1+ (17), 2+ (35), 3+ (70), Trace (15) Nitrite, UA Negative Negative, None Detected Appearance, UA clear QC Media Lot # [id number] Lot# Expiration Date , Urine (Urine, Random) 06/18/2025 9:07 AM EST Wilmer Pascal MD POINT OF CARE TEST ENTER/EDIT OR DERABLES Final Result documented in this encounter Visit Diagnoses Diagnosis Vaginal discharge- Primary Leukorrhea, not specified as infective Dysuria documented in this encounter Additional Health Concerns Assessment Noted Time PHQ-9 Depression Total Score: 5 01/05/20 25 9:56 AM EDT documented as of this encounter Care Teams Licensed Practical Nurse Clinic Nurse Relationship Specialty Start Date End Date Ansley Foster MD [address] [place] [phone] PCP - General Internal Medicine 11/10/22 documented as of this encounter
--- OUTSIDE RECORDS SUMMARY | 2025-06-18 22:57 | XMS_ITS | Clinical Summary ---
Demographics Address 5 [facility] [address] [place] [address] Mobile Phone Home Phone Email Address Email Address m Preferred Language es Marital Status Single Pentecostal Affiliation Unknown Race Other Race Ethnic Group Unknown Author Organization [employer] Address [address] [place] [address] 7[address] [place] [address] Care Team Providers Care Books Salesperson Name Role Phone Ansley Foster MD Primary [...] 45 tablet 1 5 03/04/20 26 Active metroNIDAZOLE (Flagyl) 500 MG tablet Take 1 tablet (500 mg) by mouth after breakfast and after evening meal for 7 days. 14 tablet 5 06/25/20 25 Active Active Problems Problem Noted Date Diagnosed [...] diet and exercise,discussed healthy life style -discussed felt finishing supervisor referral -referred today Latex allergy 01/12/2023 Depression [...] -pap smear 2020 neg per pt in [place] to repeat in 3 y -will repeat in 2023 -vaccines: s/p tdap 2016,s/p covid 19 x3 (brought records) and Bivalent today here, ,HPV vaccine s/p 1st dose at [facility] -pd 2nd in 04/2023 ,hep B not immune-2nd dose today -and 3rd in 5 mo Assessment & Plan (12/08/2022 8:14 PM EDT): -PPD neg in 2016 -pap smear 2020 neg per pt [place] to repeat in 3 y -will repeat [...] -pap smear 2020 neg per pt in [place] to repeat in 3 y -will repeat [...] -labs to be done in fasting -will [facility] x labs Anemia 03/19/2016 Assessment & Plan [...] Encounters Date Type Department Care Team Description 06/18/2025 8:40 AM EST Office Visit [facility] [address] [place] [phone] Wilmer Pascal MD Vaginal discharge (Primary Dx); Dysuria 06/18/2025 Travel 06/10/2025 Telephone [facility] [address] [place] [address] Ansley Foster MD ER Follow-up 06/08/2025 Orders Only GENERIC EXTERNAL DATA DEPARTMENT Provider, Generic External Data 04/19/2025 Orders Only [facility] External Provider, [facility] 04/18/2025 Telephone [facility] [address] [place] [address] Ansley Foster MD Appointment 04/15/2025 Telephone [facility] [address] [place] [address] Ansley Foster MD Appointment Request 04/01/2025 Telephone [facility] [address] [place] [address] Ansley Foster MD recall Dec from Last [...] Mass Index 24.96 06/18/2025 8:40 AM EST Plan of Treatment Upcoming Encounters Date Type Department Care Team (Late st Contact Info) Description 07/19/2025 3:45 PM EST Office Visit [facility] [address] [place] [phone] Pietro Trinidad MD [address] [place], [place] [phone] 08/16/2025 9:00 AM EST Office Visit [facility] [address] [place], [place] [phone] Ansley Foster MD [address] [place] [address] Health Maintenance Due Date Last Done Comments Family Planning (PISQ) 2003 Pap Smear 2009 Cervical Cancer Screening 2018 HPV/Cotest 2018 COVID-19 Vaccine ( season) 2025 05/09/2024, 03/16/2023, 09/23/2021, Additional history exists Influenza Vaccine (#1) 2025 05/09/2024, 2016 SDOH Screening 08/01/2025 08/01/2024 Alcohol/Substance Use Screening 01/04/2026 01/04/2025 Depression Screening 01/04/2026 01/04/2025, 01/05/20 25 Disability Screening 01/04/2026 01/04/2025 Tobacco Screening 06/18/2026 06/18/2025 DTaP/Tdap/Td Vaccines (2 - Td or Tdap) [...] DIPSTICK Routine 06/18/2025 9:07 AM EST Dysuria MAGNESIUM Routine 06/08/2025 10:10 AM EST COMPREHENSIVE METABOLIC PANEL Routine 06/08/2025 10:10 AM EST CBC WITH [...] 5:07 PM EDT HEPATIC FUNCTION PANEL Routine 5:07 PM EDT CBC WITH AUTO DIFFERENTIAL [...] Recently Relevant to Health Maintenance Results * (ABNORMAL) POCT Urinalysis (06/18/2025 9:07 [...] Media Lot # [id number] Lot# Expiration Date ,195 Urine (Urine, Random) 06/18/2025 9:07 AM EST Wilmer Pascal MD POINT OF CARE TEST ENTER/EDIT OR DERABLES Final Result * OBSX1 (06/08/2025 10:10 AM EST) OBS1 NEGATIVE NEGATIVE [facility] 06/08/2025 10:1 0 AM EST 06/08/2025 10:13 AM EST us Generic External Data Provider LAB BLOOD ORDERAB LES Final Result [facility] [address] [place] [phone] * (ABNORMAL) CBC auto differential (06/08/2025 10:10 AM EST) Only the most recent of2 resultswithin the time period is included. White Blood Count 6.3 4.8 - 10.8 X10*3/uL [facility] Red Blood Count 4.84 4.20 - 5.50 X10*6/uL [facility] Hemoglobin 11.8(L) 12.0 - 16.0 g/dl [facility] Hematocrit 37.0 37.0 - 47.0 % [facility] Mean Corpuscular Volume 76.4(L) 80.0 - 98.0 fL [facility] Mean Corpuscular Hemoglobin 24.4(L) 27.0 - 33.0 pg [facility] Mean Corpuscular HGB Conc 31.9 31.0 - 35.0 g/dl [facility] Red Cell Distribution Width 17.7(H) 11.0 - 16.0 % [facility] Platelet Count 260 160 - 400 X10*3/uL [facility] Mean Platelet Volume 10.3 9.4 - 12.3 fL [facility] Neutrophils Percent Auto 63.0 45 - 73 % [facility] Imm Gran Pct Auto 0.3 0.0 - 0.4 % [facility] Lymphocytes Percent Auto 26.5 20 - 40 % [facility] Monocytes Percent Auto 7.4 2 - 11 % [facility] Eosinophils Percent Auto 2.2 0 - 4 % [facility] Basophils Percent Auto 0.6 0 - 2 % [facility] NRBC Pct Auto 0.0 0.0 - 0.2 /100WBC [facility] Neutrophils Absolute Auto 4.0 2.0 - 8.3 x10*3/uL [facility] Imm Gran Abs Auto 0.02 0.00 - 0.03 X10*3/uL [facility] Lymphocytes Absolute Auto 1.7 1.2 - 4.9 X10*3/uL [facility] Monocytes Absolute Auto 0.5 0.1 - 1.2 X10*3/uL [facility] Eosinophils Absolute Auto 0.1 0.0 - 0.4 X10*3/uL [facility] Basophils Absolute Auto 0.0 0.0 - 0.2 X10*3/uL [facility] NRBC Abs Auto 0.000 0.0 - 0.012 X10*3/uL [facility] 06/08/2025 10:1 0 AM EST 06/08/2025 10:13 AM EST Generic External Data Provider LAB BLOOD ORDERAB LES Final Result Performing Organization Address City/[facility]/ZIP Co de Phone Number [facility] [address] [place] [phone] * Magnesium (06/08/2025 10:10 AM EST) Only the most recent of2 resultswithin the time period is included. Pathologist [facility] [place] Magnesium 2.0 1.6 - 2.6 mg/dL [facility] 06/08/2025 10:1 0 AM EST 06/08/2025 10:13 AM EST Generic External Data Provider LAB BLOOD ORDERAB LES Final Result Performing Organization Address [facility]/ZIP Co de Phone Number [facility] [address] [place] [phone] * (ABNORMAL) Comprehensive Metabolic Panel (06/08/2025 10:10 AM EST) Sodium 140 135 - 145 mmol/L [facility] Potassium 3.9 3.3 - 5.1 mmol/L [facility] Chloride 107 96 - 108 mmol/L [facility] Carbon Dioxide 27 22 - 29 mmol/L [facility] Anion Gap 10(L) 12 - 20 [facility] Urea Nitrogen (BUN) 18(H) 9 - 16 mg/dL [facility] Creatinine, Serum 0.67 0.5 - 1.4 mg/dL [facility] Creatinine Clr Calc Pharmacy 103.4 [facility] Comment:Provided height and weight: 165.1 cm,67.9 kg.eGFR (calculated from the MDRD study equation) and eCrCl(calculated from the Cockcroft-Gault equation) are based ondifferent parameters and may not yield comparable results.If eCrCl result is absurd, please check patient'sheight/weight. Estimated Glomerular Filt Rate >60 [facility] Comment:Chronic Kidney Disea se: Estimated GFR < 60 mL/min/1.04p4Tfftmx Kidney Disease: Estimated GFR < 15 mL/min/1.73m2 Glucose 121(H) 60 - 115 mg/dL [facility] Calcium 9.3 8.4 - 10.2 mg/dL [facility] Bilirubin, Total 0.2 0.0 - 1.0 mg/dL [facility] Aspartate Amino Transferase 20 5 - 31 U/L [facility] Alanine Aminotransferase 16 0 - 31 U/L [facility] Total Protein 7.7 6.5 - 8.0 g/dL [facility] Albumin Level 4.4 3.5 - 5.0 g/dL [facility] Alkaline Phosphatase 55 39 - 117 U/L [facility] 06/08/2025 10:1 0 AM EST 06/08/2025 10:13 AM EST us Generic External Data Provider LAB BLOOD ORDERAB LES Final Result [facility] [address] [place] [phone] * D Dimer High Sensitivity (04/19/2025 8:06 PM EDT) D Dimer High Sensitivity <150 NG/ML [facility] Comment:D-DIMER HS REFERENCE RANGENote: Our assay reports D-Dimer Units (D- DU).The cut-off value for venous thromboembolic (VTE) disease is230 ng/mL. This value has a very high negative predictivevalue when the patient has a low to moderate clinicalprobability of VTE.The upper limit of normal is 243 ng/mL. 04/19/2025 8:06 PM EDT 04/19/2025 8:10 PM EDT Generic External Data Provider LAB BLOOD ORDERAB LES Final Result Performing Organization Address [facility] de Phone Number [facility] [address] [place] [phone] * High Sensitivity Troponin I (04/19/2025 8:06 PM EDT) Only the most recent of2 resultswithin the time period is included. TROPONIN I HIGH SENSITIVITY <2.7 <3.5 - 17.0 ng/L [facility] Comment:The [place] high sens itivity Troponin-I results should beused in conjunction with other diagnostic information suchas ECG, clinical observations and information, and patientsymptoms to aid in the diagnosis of MD. 04/19/2025 8:06 PM EDT 04/19/2025 8:10 PM EDT Generic External Data Provider LAB BLOOD ORDERAB LES Final Result Performing Organization Address [facility] de Phone Number [facility] [address] [place] [phone] * hCG, Total, Quantitative (04/19/2025 5:07 PM EDT) HCG Quantitative <2 mIU/mL [facility] Comment:Weeks post LMP Appro ximate hCG(Last Menstrual Period) Range (mIU/ml)3 - 4 weeks 9 - 1304 - 5 weeks 75 - 2,6005 - 6 weeks 850 - 20,8006 - 7 weeks 4000 - 100,2007 - 12 weeks 11,500 - 289,12830 - 16 weeks 18,300 - 137,79898 - 29 weeks (2nd trimester) 1,400 - 53,93624 - 41 weeks (3rd trimester) 940 - [...] ORDERAB LES Final Result Performing Organization Address [facility] Co de Phone Number [facility] [address] [place] [phone] * (ABNORMAL) Hepatic Function Panel (04/19/2025 5:07 PM EDT) Pathologist [facility] [place] Bilirubin, Total 0.2 0.0 - 1.0 mg/dL [facility] Bilirubin, Direct <0.2 0.0 - 0.5 mg/dL [facility] Aspartate Amino Transferase 26 5 - 31 U/L [facility] Alanine Aminotransferase 19 0 - 31 U/L [facility] Total Protein 8.2(H) 6.5 - 8.0 g/dL [facility] Albumin Level 4.7 3.5 - 5.0 g/dL [facility] Alkaline Phosphatase 62 39 - 117 U/L [facility] 04/19/2025 5:0 7 PM EDT 04/19/2025 5:09 PM EDT Generic External Data Provider LAB BLOOD ORDERAB LES Final Result Performing Organization Address [facility] Co de Phone Number [facility] [address] [place] [phone] * (ABNORMAL) Basic Metabolic Panel (04/19/2025 5:07 PM EDT) Sodium 141 135 - 145 mmol/L [facility] Potassium 4.0 3.3 - 5.1 mmol/L [facility] Chloride 107 96 - 108 mmol/L [facility] Carbon Dioxide 28 22 - 29 mmol/L [facility] Anion Gap 10(L) 12 - 20 [facility] Urea Nitrogen (BUN) 16 9 - 16 mg/dL [facility] Creatinine, Serum 0.60 0.5 - 1.4 mg/dL [facility] Creatinine Clr Calc Pharmacy 115.5 [facility] Comment:Provided height and weight: 165.1 cm,66.95 kg.eGFR (calculated from the MDRD study equation) and eCrCl(calculated from the Cockcroft-Gault equation) are based ondifferent parameters and may not yield comparable results.If eCrCl result is absurd, please check patient'sheight/weight. Estimated Glomerular Filt Rate >60 [facility] Comment:Chronic Kidney Disea se: Estimated GFR < 60 mL/min/1.56r8Lkahtv Kidney Disease: Estimated GFR < 15 mL/min/1.73m2 Glucose 99 60 - 115 mg/dL [facility] Calcium 10.0 8.4 - 10.2 mg/dL [facility] 04/19/2025 5:07 PM EDT 04/19/2025 5:09 PM EDT us Generic External Data Provider LAB BLOOD ORDERAB LES Final Result [facility] [address] [place] [phone] * XR Chest 2 Views (04/19/2025 4:15 PM EDT) Anatomical Region Laterality Modality Chest Radiographic Yamilet ging 04/19/2025 4:15 PM EDT Narrative 04/19/2025 4:29 PM EDT [address] [address] XRay Report Signed Patient: Melanie Jones MR#: [id number] : 1990 Acct:[id number] Age/Sex: 35 / F ADM Date: 04/19/25 Loc: HO.ED Attending Dr: Ordering Physician: Betty Webb Date of Service: 04/19/25 Procedure(s): XR chest 2V Accession Number(s): [id number] cc: Ansley Foster MD; Betty Webb Reason [...] signed by Sebastian Mattson MD in OV> 04/19/251626 DD/ 14 TD/TT: 04/19/25 162 Silverware Assembler: LUIS Procedure Note Donotuseinterpreter, Image - 04/19/2025 [place] [address] XRay Report Signed Patient: Leonarda Jones#: [id number] : 1990Acct:[id number] Age/Sex: 35 / FADM Date: 04/19/25 Loc: .ED Attending Dr: Ordering Physician: Betty Webb Date of Service: 04/19/25 Procedure(s): XR chest 2V Accession Number(s): [id number] cc: Ansley Foster MD; Betty Webb Reason [...] 04/19/25 1627 DD/ 1615 TD/TT: 04/19/25 1621 Silverware Assembler: LUIS Result [facility] External Provider IMG XR PROCEDURES Final Result * Hepatitis C Antibody with Reflex to HCV, RNA, Quantitative, Real-Time PCR (02/06/2024 8:25 AM EDT) Hepatitis C Antibody Nonreactive Nonreactive [facility] Comment:Antibodies to HCV no t detected; does not exclude early acuteHCV infection. Blood Venous blood specimen / Unknown 02/06/2024 8:25 AM EDT 02/06/2024 11:37 AM EDT Result [facility] Ansley Friend MD LAB BLOOD ORDERAB LES Final Result [facility] [address] [place] [phone] * HIV-1/2 Antigen and Antibodies, Fourth Generation, with Reflexes (02/06/2024 8:25 AM EDT) HIV AB/AG Nonreactive Nonreactive [facility] Comment:HIV-1 p24 Ag and/or HIV-1/HIV-2 Ab not detected.A test result that is nonreactive does not exclude thepossibility of exposure to or infection with HIV-1 and/orHIV-2. Nonreactive results in this assay for individualswith prior exposure to HIV-1 and/or HIV-2 may be due toantigen and antibody levels that are below the limit ofdetection of this assay.The [employer] HIV Ag/Ab Combo assay result andsupplemental assay results should be interpreted inconjunction with the patient's clinical presentation,history and other laboratory results. If the results areinconsistent with clinical evidence, additional testing issuggested to confirm the result. Blood Venous blood specimen / Unknown 02/06/2024 8:25 AM EDT 02/06/2024 11:37 AM EDT Result [facility] Ansley Friend MD LAB BLOOD ORDERAB LES Final Result Performing Organization Address City/[facility]/ZIP Co de Phone Number [facility] [address] [place] [phone] * (ABNORMAL) Lipid Panel, Standard (02/06/2024 8:25 AM EDT) Triglycerides 225(H) <150 mg/dL [facility] Comment:Desirable Triglyceri de: less than 150 mg/dLBorderline High Triglyceride 150-199 mg/dLHigh Triglyceride: 200-499 mg/dLVery High Triglyceride: greater than or equal to 5OO mg/dL Cholesterol 135 <200 mg/dL [facility] Comment:Desirable Cholestero l: less than 200 mg/dLBorderline High Cholesterol: 200-239 mg/dLHigh Cholesterol: greater than 239 mg/dL LDL Cholesterol Calculated 51 <100 mg/dL [facility] Comment:Desirable LDL: less than 100 mg/dLNear Optimal/Above Optimal LDL: 110- 129 mg/dLBorderline High LDL: 130-159 mg/dLHigh LDL: 160-189 mg/dLVery High LDL: greater than or equal to 190 mg/dL HDL Cholesterol 39(L) >40 mg/dL [facility] Comment:Desirable HDL: great er than 40 mg/dL Note: This HDL assay may give artificially low results in patients with liver disease. Blood Venous blood specimen / Unknown 02/06/2024 8:25 AM EDT 02/06/2024 11:37 AM EDT us Ansley Friend MD LAB BLOOD ORDERAB LES Final Result [facility] [address] [place] [phone] from Last 3 Months or Most Recently Relevant to Health Maintenance Insurance [facility] Care Teams Books Salesperson Relationship Specialty Start Date End Date Ansley Foster MD [address] [place] [phone] PCP - General Internal Medicine 11/10/22
--- OUTSIDE RECORDS SUMMARY | 2025-06-18 22:57 | XMS_ITS | Encounter Summary ---
Demographics Address [address] [facility] [address] [place] [address] Mobile Phone Home Phone Email Address Email Address m Preferred Language es Marital Status Single Jew Affiliation Unknown Race Other Race Ethnic Group Unknown Author Organization [employer] Address [address] [place] [address] [address]t [place] [address] Care Team Providers Care Snow Plow Tractor Operator Name Role Phone Ansley Foster MD Primary Care Pro vider Reason for Visit * Reason Comments Med Refill Encounter Details Date Type Department Care Team ([facility] st Contact Info) Description 12/08/2022 Refill [facility] [address] [place] [address] Ansley Foster MD [address] [place] [address] Social History Tobacco Use Types Packs/Day Years [...] Description 07/19/2025 3:45 PM EST Office Visit [facility] [address] [place] [phone] Pietro Trinidad MD [address] [place] [phone] 08/16/2025 9:00 AM EST Office Visit [facility] [address] [place] [address] Ansley Foster MD [address] [place] [address] [phone] documented as of this encounter Visit Diagnoses Not on filedocumented in this encounter Additional Health Concerns Assessment Noted Time PHQ-9 Depression Total Score: 5 12/09/19 23 3:54 PM EDT documented as of this encounter Care Teams Snow Plow Tractor Operator Relationship Specialty Start Date End Date Ansley Foster MD [address] [place] [phone] PCP - General Internal Medicine 11/10/22 documented as of this encounter
--- OUTSIDE RECORDS SUMMARY | 2025-06-18 22:57 | XMS_ITS | Encounter Summary ---
Demographics Address [address] [facility] [address] [place] [address] Mobile Phone Home Phone Email Address Email Address m Preferred Language es Marital Status Single Church Affiliation Unknown Race Other Race Ethnic Group Unknown Author Organization [employer] Address [address] [facility] 7 [place] [address] Care Team Providers Care Rfp Writer Name Role Phone Ansley Foster MD Primary Care Pro vider Reason for Referral * Consultation (Routine) - Closed Specialty Diagnoses / Procedures Referred By Candy patrick Referred To Contact Family Medicine Diagnoses Dermatitis Melissa Martínez FNP [address] [place] [address] Phone: tel: fax: Referral ID Status Reason Start Date Expiration Date V isits Requested Visits Authorized [id number] Closed Specialty Services Required 08/14/2024 08/14/2025 1 1 Reason for Visit * Reason Onset Date Comments Referral 08/14/2024 Encounter Details Date Type Department Care Team ([facility] st Contact Info) Description 08/14/2024 Telephone [facility] [address] [place] [address] Ansley Foster MD [address] [place] [address] Referral Social History Tobacco Use Types Packs/Day [...] call to make an appt with the tension machine operator. * Telephone Encounter - SHERIE Ha - 08/14/2024 1:30 PM EST Referral placed to [facility] Derm team, thanks! * Telephone Encounter - Alice Quinones - 08/14/2024 12:48 PM EST Tc from pt requesting Comprehensive Ophthalmologist referral. (Last visit , Tanya) [phone] (citizen of [place]) documented in this encounter Plan of Treatment Upcoming Encounters Date Type Department Care Team (Late st Contact Info) Description 07/19/2025 3:45 PM EST Office Visit [facility] [address] [place] [address], [place] [address] Pietro Trinidad MD [address] [facility] [place] [address] 08/16/2025 9:00 AM EST Office Visit [facility] [address] [place] [address], [place] [address] Ansley Foster MD [address] [place] [phone] Scheduled Referrals Name Type Priority Associated Diagnoses Orde r Schedule Referral to [facility] Derm Skin Adult Outpatient Referral Routine Dermatitis Expected: 08/14/2024 (Approximate), Expires: 08/14/2025 documented as of this encounter Visit Diagnoses Diagnosis Dermatitis- Primary Contact dermatitis and other eczema, due to unspecified cause documented in this encounter Additional Health Concerns Assessment Noted Time PHQ-9 Depression Total Score: 2 05/09/20 24 9:30 AM EDT documented as of this encounter Care Teams Rfp Writer Relationship Specialty Start Date End Date Ansley Foster MD [address] [place] [address] [phone] PCP - General Internal Medicine 11/10/22 documented as of this encounter
--- OUTSIDE RECORDS SUMMARY | 2025-06-18 22:57 | XMS_ITS | Encounter Summary ---
Demographics Address [address] [facility] [address] [place] [address] Mobile Phone Home Phone Email Address Preferred Language es Marital Status Single Restoration Affiliation Unknown Race Other Race Ethnic Group Unknown Author Organization [employer] Address [address] [facility] [address] [place] [address] Care Team Providers Care Truck Crane Operator Helper Name Role Phone Ansley Foster MD Primary Care Pro vider Encounter Details Date Type Department Care Team (Latest Contact Info) Description 06/18/2025 Travel Social History Tobacco Use Types Packs/Day [...] Description 07/19/2025 3:45 PM EST Office Visit [facility] [address] [place] [phone] Pietro Trinidad MD [address] [place] [phone] 08/16/2025 9:00 AM EST Office Visit [facility] [address] [place] [phone] Ansley Foster MD [address] [place] [phone] documented as of this encounter Visit Diagnoses Not on filedocumented in this encounter Additional Health Concerns Assessment Noted Time PHQ-9 Depression Total Score: 5 01/05/20 25 9:56 AM EDT documented as of this encounter Care Teams Truck Crane Operator Helper Relationship Specialty Start Date End Date Ansley Foster MD [address] [place] [phone] PCP - General Internal Medicine 11/10/22 documented as of this encounter
--- OUTSIDE RECORDS SUMMARY | 2025-06-18 22:57 | XMS_ITS | Encounter Summary ---
Demographics Address [address] [facility] [address] [place] [address] Mobile Phone Home Phone Email Address m Email Address m Preferred Language es Marital Status Single Oriental Orthodox Affiliation Unknown Race Other Race Ethnic Group Unknown Author Organization [employer] Address [address] [place] [address] 7 [place] [address] Care Team Providers Care Clearance Rep Name Role Phone Ansley Foster MD Primary Care Pro vider Reason for Visit * Reason Onset Date Comments Appointment Request 10/08/2024 Encounter Details Date Type Department Care Team ([facility] st Contact Info) Description 10/08/2024 Telephone [facility] MEDICINE [address] [place] [address] Ansley Foster MD [address] [place] [address] Appointment Request Social History Tobacco Use Types [...] requesting appointment for DERM please return call [phone] documented in this encounter Plan of Treatment Upcoming Encounters Date Type Department Care Team (Late st Contact Info) Description 07/19/2025 3:45 PM EST Office Visit [facility] [address] [place] [address] Pietro Trinidad MD [address] [place] [address] 08/16/2025 9:00 AM EST Office Visit [facility] [address] [place] [address] Ansley Foster MD [address] [place] [address] documented as of this encounter Visit Diagnoses Not on filedocumented in this encounter Additional Health Concerns Assessment Noted Time PHQ-9 Depression Total Score: 2 05/09/20 24 9:30 AM EDT documented as of this encounter Care Teams Clearance Rep Relationship Specialty Start Date End Date Ansley Foster MD [address] [place] [address] PCP - General Internal Medicine 11/10/22 documented as of this encounter
--- OUTSIDE RECORDS SUMMARY | 2025-06-18 22:58 | XMS_ITS | Encounter Summary ---
Demographics Address [address] [facility] [address] [place] [address] Mobile Phone Home Phone Email Address m Email Address m Preferred Language es Marital Status Single Caodaism Affiliation Unknown Race Other Race Ethnic Group Unknown Author Organization [employer] Address [address] [facility] 7t [place] [address] Care Team Providers Care Industrial Chemistry Teacher Name Role Phone Ansley Foster MD Primary Care Pro vider Reason for Visit * Reason Comments Med Refill Encounter Details Date Type Department Care Team ([facility] st Contact Info) Description 12/21/2023 Refill [facility] MEDICINE [address] [place] [address] Ansley Foster MD [address] [place] [address] Social History Tobacco Use Types Packs/Day Years [...] 3:45 PM EST Office Visit [facility] MEDICINE [address] [place] [address] Pietro Trinidad MD [address] [place] [address] 08/16/2025 9:00 AM EST Office Visit [facility] MEDICINE [address] [place] [address] Ansley Foster MD [address] [place] [address] documented as of this encounter Visit Diagnoses Not on filedocumented in this encounter Additional Health Concerns Assessment Noted Time PHQ-9 Depression Total Score: 8 03/16/20 23 8:59 AM EDT documented as of this encounter Care Teams Industrial Chemistry Teacher Relationship Specialty Start Date End Date Ansley Foster MD [address] [place] [address] PCP - General Internal Medicine 11/10/22 documented as of this encounter
--- OUTSIDE RECORDS SUMMARY | 2025-06-18 22:58 | XMS_ITS | Encounter Summary ---
Demographics Address [address] [facility] [address] [place] [address] Mobile Phone Home Phone Email Address m Email Address m Preferred Language es Marital Status Single Yazidism Affiliation Unknown Race Other Race Ethnic Group Unknown Author Organization [employer] Address [address] [facility] [address]t [place] [address] Care Team Providers Care Can Pusher Name Role Phone Ansley Foster MD Primary Care Pro vider Reason for Visit * Reason Onset Date Comments Results 11/04/2023 Encounter Details Date Type Department Care Team ([facility] Contact Info) Description 11/04/[address] [facility] MEDICINE [address] [place] [address] Ansley Foster MD [address] [place] [address] Results Social History Tobacco Use Types Packs/Day [...] Pelvis Transvaginal Date when done: 11/02 Facility: [facility] documented in this encounter Plan of Treatment Upcoming Encounters Date Type Department Care Team (Late st Contact Info) Description 07/19/2025 3:45 PM EST Office Visit [address] [address] Pietro Trinidad MD [address] [place] [phone] 08/16/2025 9:00 AM EST Office Visit [facility] MEDICINE [address] [place] [address] Ansley Foster MD [address] [place] [address] documented as of this encounter Visit Diagnoses Not on filedocumented in this encounter Additional Health Concerns Assessment Noted Time PHQ-9 Depression Total Score: 8 03/16/20 23 8:59 AM EDT documented as of this encounter Care Teams Can Pusher Relationship Specialty Start Date End Date Ansley Foster MD [address] [place] [address] PCP - General Internal Medicine 11/10/22 documented as of this encounter
--- OUTSIDE RECORDS SUMMARY | 2025-06-18 22:58 | XMS_ITS | Patient Health Record ---
Author Organization [employer] Address [address] [place] [address] Care Team Providers Care Bilingual Speech Language Pathologist Name Role Phone LAI MARCANO Unavailable [phone] Allergies No Known Allergies Results Component Value Reference Range Notes Wet [facility] Reviewed date:09/19/2024 10:33:11 AM Interpretation:Normal Performing Lab: [...] e given by Tyler Berry RN, Student FINANCE TEACHER HPV 9 IM Intramuscular 08/22/2023 Administered Social [...] Risk Notes Problem Chronic uterine inflammatory disease (986518071) Chronic inflammatory disease of uterus (N71.1) Active confirmed Problem Endometrial hyperplasia (713285931) Endometrial hyperplasia, unspecified (N85.00) Active confirmed Problem Irregular menstruation (51835268) Irregular menstruation, unspecified (N92.6) Active confirmed Problem Menstrual disorder (885645053) Irregular menses (N92.6) Active confirmed Vital Signs Blood pressure diastolic 76 mm Hg 09/19/2024 Height 5'2 in 09/19/2024 Blood pressure systolic 128 mm Hg 09/19/2024 Weight 153.4 lbs 09/19/2024 BMI 28.05 kg/m2 09/19/2024 Encounters Encounter Location Date Provider Diagnosis [facility] [address] [place] [address] [address] [place], [place] [id number] 09/19/2024 LAI MARCANO Encounter for screening for [...] procedures Communication of test results Established Patient: [id number] 20 Minutes Plan Of Treatment No Information Insurance Providers Payer Name Payer Address Payer Phone Subscriber Number Group Number Insured Name Patient Relationship to Insured Coverage Start Date Coverage End Date [place] [address] [place] [id number] Melanie Calloway Self - patient is the insured Medical (General) History Medical History History ICD Code Anxiety Anemia Pelvic u/s 10/2023 with thickened endomtr ium, emb collected 01/11/24 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
--- OUTSIDE RECORDS SUMMARY | 2025-06-18 22:58 | XMS_ITS | Encounter Summary ---
Demographics Address [address] [facility] [address] [place] [address] Mobile Phone Home Phone Email Address Email Address Preferred Language es Marital Status Single Jewish Affiliation Unknown Race Other Race Ethnic Group Unknown Author Organization [employer] Address [address] [place] [address] [address]t [place] [address] Care Team Providers Care Associate Professor Of Musicology Name Role Phone Ansley Foster MD Primary Care Pro vider Reason for Visit * Reason Onset Date Comments Nurse Triage 03/05/2025 Encounter Details Date Type Department Care Team ([facility] st Contact Info) Description 03/05/2025 Telephone [facility] MEDICINE [address] [place] [address] Ansley Foster MD [address] [place] [address] Nurse Triage Social History Tobacco Use Types [...] ED visit on : Date: 03/05/2025 Hospital: [facility] Seen for: Panic attack Symptomatic Yes *if yes message should go to Triage Patient advised will forward to team nurse for follow up documented in this encounter Plan of Treatment Upcoming Encounters Date Type Department Care Team (Late st Contact Info) Description 07/19/2025 3:45 PM EST Office Visit [facility] MEDICINE [address] [place] [address] Pietro Trinidad MD [address] [place] [address] 08/16/2025 9:00 AM EST Office Visit [facility] MEDICINE [address] [place] [address] Ansley Foster MD [address] [place] [address] documented as of this encounter Visit Diagnoses Not on filedocumented in this encounter Additional Health Concerns Assessment Noted Time PHQ-9 Depression Total Score: 5 01/05/20 25 9:56 AM EDT documented as of this encounter Care Teams Associate Professor Of Musicology Relationship Specialty Start Date End Date Ansley Foster MD [address] [place] [address] PCP - General Internal Medicine 11/10/22 documented as of this encounter
--- OUTSIDE RECORDS SUMMARY | 2025-06-18 22:58 | XMS_ITS | Encounter Summary ---
Demographics Address [address] [facility] [address] [place] [address] Mobile Phone Home Phone Email Address Email Address m Preferred Language es Marital Status Single Moravian Affiliation Unknown Race Other Race Ethnic Group Unknown Author Organization [employer] Address [address] [place] [address] [address] [place] [address] Care Team Providers Care Rocket Motor Mechanic Name Role Phone Ansley Foster MD Primary Care Pro vider Reason for Visit * Reason Onset Date Comments Appointment Request 10/03/2023 Encounter Details Date Type Department Care Team ([facility] Contact Info) Description 10/03/2023 Telephone [facility] MEDICINE [address] [place] [address] Ansley Foster MD [address] [place] [address] Appointment Request Social History Tobacco Use Types [...] Tc from pt requesting an appointment with materials assistant. Pt was scheduled 05/24/2023. Please contact pt at [phone] documented in this encounter Plan of Treatment Upcoming Encounters Date Type Department Care Team (Late st Contact Info) Description 07/19/2025 3:45 PM EST Office Visit [facility] MEDICINE [address] [place] [address] Pietro Trinidad MD [address] [place] [address] 08/16/2025 9:00 AM EST Office Visit [facility] MEDICINE [address] [place] [address] Ansley Foster MD [address] [place] [address] documented as of this encounter Visit Diagnoses Not on filedocumented in this encounter Additional Health Concerns Assessment Noted Time PHQ-9 Depression Total Score: 8 03/16/20 23 8:59 AM EDT documented as of this encounter Care Teams Rocket Motor Mechanic Relationship Specialty Start Date End Date Ansley Foster MD [address] [place] [address] PCP - General Internal Medicine 11/10/22 documented as of this encounter
[2025-06-19 00:44] LABS: Bacterial Vaginosis PCR POSITIVE (Negative); Candida Group PCR NOT DETECTED (Not Detect); Candida glab krusei PCR NOT DETECTED (Not Detect); Trichomonas vaginalis PCR NOT DETECTED (Not Detect)
[2025-06-19 01:23] LABS: CT PCR NOT DETECTED (Not Detect.); NG PCR NOT DETECTED (Not Detect.)
== END 2025-06-18 16:22 | disposition home or self-care (01) ==
LOC: HO.HHCLNP 16:21
PROVIDERS: Student in an Organized Health Care Education/Training Program; Visit Provider Emergency Medicine
DX: Z00.00 Encounter for general adult medical examination without abnormal findings (principal); Z20.2 Contact with and (suspected) exposure to infections with a predominantly sexual mode of transmission; N89.8 Other specified noninflammatory disorders of vagina; R30.0 Dysuria
CPT/HCPCS: 81515; 87086; 87491; 87591